=== PATIENT | female | born 1965 | race Caucasian/White ===

== ENCOUNTER 2017-11-18 13:04 | Outpatient (REF) | payer MEDICAID, SELFPAY ==
[2017-11-18 19:01] LABS: ALT 107 U/L (12-78); AST 97 U/L (15-37); Albumin 4.1 g/dL (3.4-5.0); Alkaline Phosphatase 67 U/L (46-116); Anion Gap 10.3 mmol/L (3-11); BUN 10 mg/dL (7-18); Bilirubin, Total 0.3 mg/dL (0.2-1.0); CO2 27.7 mmol/L (21.0-32.0); CREATININE 0.88 mg/dL (0.55-1.02); Calcium 9.5 mg/dL (8.5-10.1); Chloride 100 mmol/L (98-107); Cholesterol 142 mg/dL (50-200); Glucose 138 mg/dL (70-100); HDL Cholesterol 35 mg/dL (40-60); LDL CHOLESTEROL 87 mg/dL (<100); Potassium 3.9 mmol/L (3.5-5.1); Sodium 138 mmol/L (136-145); TSH 0.99 uIU/mL (0.358-3.74); Total Protein 7.6 g/dL (6.4-8.2); Triglyceride 181 mg/dL (30-150)
== END 2017-11-18 13:24 ==
LOC: NCHCN 13:04
PROVIDERS: PCP Nurse Practitioner Family; Visit Provider Nurse Practitioner Family
DX: E11.9 Type 2 diabetes mellitus without complications (principal); E78.5 Hyperlipidemia, unspecified
CPT/HCPCS: 80053; 80061; 83721; 84443

== ENCOUNTER 2018-03-01 12:04 | Outpatient (REF) | payer MEDICAID, SELFPAY ==
[2018-03-01 19:56] LABS: ALT 105 U/L (12-78); AST 97 U/L (15-37); Albumin 4.1 g/dL (3.4-5.0); Alkaline Phosphatase 58 U/L (46-116); Anion Gap 12.7 mmol/L (3-11); BUN 14 mg/dL (7-18); Bilirubin, Total 0.3 mg/dL (0.2-1.0); CO2 25.3 mmol/L (21.0-32.0); CREATININE 0.81 mg/dL (0.55-1.02); Calcium 10.2 mg/dL (8.5-10.1); Chloride 100 mmol/L (98-107); Cholesterol 223 mg/dL (50-200); Glucose 148 mg/dL (70-100); HDL Cholesterol 33 mg/dL (40-60); LDL CHOLESTEROL 167 mg/dL (<100); Potassium 4.3 mmol/L (3.5-5.1); Sodium 138 mmol/L (136-145); Triglyceride 159 mg/dL (30-150)
== END 2018-03-01 12:24 ==
LOC: NCHCN 12:04
PROVIDERS: PCP Nurse Practitioner Family; Visit Provider Nurse Practitioner Family
DX: E11.9 Type 2 diabetes mellitus without complications (principal); I10 Essential (primary) hypertension; E78.5 Hyperlipidemia, unspecified
CPT/HCPCS: 80053; 80061; 83721

== ENCOUNTER 2018-03-16 12:22 | Outpatient (REF) | payer MEDICAID, SELFPAY ==
[2018-03-16 19:46] LABS: Iron 74 ug/dL (50-175); Total Iron Binding Capacity 494 ug/dL (250-450)
[2018-03-18 10:34] LABS: IgG 657 mg/dL (610-1616)
[2018-03-18 10:53] LABS: Hepatitis C Ab w Rflx HCV PCR Negative (NEGAT)
[2018-03-18 11:00] LABS: HBs Antibody, Quant <3.1 mIU/mL; Hepatitis B Surface Ab Negative
[2018-03-18 13:47] LABS: ANA Interpretation Negative (NEGAT)
[2018-03-19 16:33] LABS: Smooth Muscle Ab Screen Negative (Negative)
== END 2018-03-16 12:42 ==
LOC: NCHCN 12:22
PROVIDERS: PCP Nurse Practitioner Family; Visit Provider Nurse Practitioner Family
DX: K75.81 Nonalcoholic steatohepatitis (NASH) (principal)
CPT/HCPCS: 82784; 86706; 86803; 83540; 83550; 86038; 86255

== ENCOUNTER 2018-04-12 12:17 | Outpatient (REF) | payer MEDICAID, SELFPAY ==
[2018-04-12 19:31] LABS: Iron 97 ug/dL (50-175); Total Iron Binding Capacity 471 ug/dL (250-450)
[2018-04-14 09:50] LABS: HBs Antibody, Quant 32.9 mIU/mL; Hepatitis B Surface Ab Positive
[2018-04-14 10:04] LABS: IgG 908 mg/dL (610-1616)
[2018-04-14 11:15] LABS: Hepatitis C Ab w Rflx HCV PCR Negative (NEGAT)
[2018-04-14 13:55] LABS: ANA Interpretation Negative (NEGAT)
[2018-04-14 16:31] LABS: Smooth Muscle Ab Screen Negative (Negative)
== END 2018-04-12 12:37 ==
LOC: NCHCN 12:17
PROVIDERS: PCP Nurse Practitioner Family; Visit Provider Nurse Practitioner Family
DX: K75.81 Nonalcoholic steatohepatitis (NASH) (principal)
CPT/HCPCS: 82784; 86706; 86803; 83540; 83550; 86038; 86255

== ENCOUNTER 2018-05-30 12:02 | Outpatient (REF) | payer MEDICAID, SELFPAY ==
[2018-05-30 19:41] LABS: Anion Gap 12.9 mmol/L (3-11); BUN 9 mg/dL (7-18); CO2 27.1 mmol/L (21.0-32.0); CREATININE 0.82 mg/dL (0.55-1.02); Calcium 9.9 mg/dL (8.5-10.1); Chloride 99 mmol/L (98-107); Glucose 131 mg/dL (70-100); Potassium 3.9 mmol/L (3.5-5.1); Sodium 139 mmol/L (136-145)
== END 2018-05-30 12:22 ==
LOC: NCHCN 12:02
PROVIDERS: PCP Nurse Practitioner Family; Visit Provider Nurse Practitioner Family
DX: I10 Essential (primary) hypertension (principal)
CPT/HCPCS: 80048

== ENCOUNTER 2018-08-29 11:58 | Outpatient (REF) | payer MEDICAID, SELFPAY ==
[2018-08-29 20:15] LABS: ALT 96 U/L (12-78); AST 75 U/L (15-37); Anion Gap 13.7 mmol/L (3-11); BUN 11 mg/dL (7-18); CO2 25.3 mmol/L (21.0-32.0); CREATININE 0.79 mg/dL (0.55-1.02); Calcium 9.6 mg/dL (8.5-10.1); Calculated LDL 58 mg/dL; Chloride 100 mmol/L (98-107); Cholesterol 121 mg/dL (50-200); Glucose 146 mg/dL (70-100); HDL Cholesterol 48 mg/dL (40-60); Potassium 4.1 mmol/L (3.5-5.1); Sodium 139 mmol/L (136-145); Triglyceride 77 mg/dL (30-150)
[2018-08-29 22:07] LABS: COMMENT (LAB VIEW ONLY) 51.12 mg/dL; Microalb ug/mg Crea 288.7 ug/mg Cr
== END 2018-08-29 12:18 ==
LOC: NCHCN 11:58
PROVIDERS: PCP Nurse Practitioner Family; Visit Provider Nurse Practitioner Family
DX: E11.9 Type 2 diabetes mellitus without complications (principal); E78.5 Hyperlipidemia, unspecified; K76.0 Fatty (change of) liver, not elsewhere classified
CPT/HCPCS: 80048; 80061; 83721; 82043; 82570; 84450; 84460

== ENCOUNTER 2019-06-29 12:05 | Outpatient (REF) | payer MEDICAID, SELFPAY ==
[2019-06-29 19:32] LABS: ALT 58 U/L (14-59); AST 68 U/L (15-37); Albumin 3.8 g/dL (3.4-5.0); Alkaline Phosphatase 57 U/L (46-116); Anion Gap 11.4 mmol/L (3-11); BUN 8 mg/dL (7-18); Bilirubin, Total 0.3 mg/dL (0.2-1.0); CO2 26.6 mmol/L (21.0-32.0); CREATININE 1.06 mg/dL (0.55-1.02); Calcium 9.2 mg/dL (8.5-10.1); Calculated LDL 44 mg/dL (<100); Chloride 101 mmol/L (98-107); Cholesterol 96 mg/dL (<200); Estimated GFR 54.65 (mL/min/1.73m2); Glucose 161 mg/dL (74-106); HDL Cholesterol 31 mg/dL (40-60); Potassium 3.5 mmol/L (3.5-5.1); Sodium 139 mmol/L (136-145); Total Protein 7.3 g/dL (6.4-8.2); Triglyceride 105 mg/dL (<150)
[2019-06-29 19:55] LABS: Hemoglobin A1C 7.5 % (3.8-5.6)
[2019-07-01 13:59] LABS: Campylobacter PCR Negative (Negative); Salmonella PCR Negative (Negative); Shiga Toxin PCR Negative (Negative); Shigella/Enteroinvasive Ecoli Negative (Negative)
== END 2019-06-29 12:25 ==
LOC: NCHCN 12:05
PROVIDERS: PCP Nurse Practitioner Family; Visit Provider Nurse Practitioner Family
DX: R19.7 Diarrhea, unspecified (principal); E11.9 Type 2 diabetes mellitus without complications; I10 Essential (primary) hypertension; E78.5 Hyperlipidemia, unspecified
CPT/HCPCS: 80053; 80061; 87329; 87505; 83036; 87324

== ENCOUNTER 2019-10-02 12:04 | Outpatient (REF) | payer MEDICAID, SELFPAY ==
[2019-10-02 19:04] LABS: Anion Gap 12.1 mmol/L (3-11); BUN 7 mg/dL (7-18); CO2 26.9 mmol/L (21.0-32.0); CREATININE 0.92 mg/dL (0.55-1.02); Calcium 9.5 mg/dL (8.5-10.1); Chloride 101 mmol/L (98-107); Glucose 142 mg/dL (74-106); Potassium 3.7 mmol/L (3.5-5.1); Sodium 140 mmol/L (136-145)
[2019-10-02 19:51] LABS: Hemoglobin A1C 7.2 % (3.8-5.6)
== END 2019-10-02 12:24 ==
LOC: NCHCN 12:04
PROVIDERS: PCP Nurse Practitioner Family; Visit Provider Nurse Practitioner Family
DX: E11.9 Type 2 diabetes mellitus without complications (principal); I10 Essential (primary) hypertension; M47.817 Spondylosis without myelopathy or radiculopathy, lumbosacral region
CPT/HCPCS: 80048; 83036

== ENCOUNTER 2019-12-19 07:42 | Outpatient (CLI) | payer MEDICAID, SELFPAY ==
--- NOTE | 2019-12-19 06:00 | DI.RAD_ITS ---
EXAM: XR PAIN CLINIC LUMBAR SP 2V CLINICAL HISTORY: Dx: Lumbar Radiculopathy,caudal epidural steroid injection TECHNIQUE: 2D and realtime digital imaging was performed. COMPARISON: No exams were available for comparison FINDINGS: C-arm fluoroscopy was utilized by Dr. Alba during reported caudal epidural steroid injection. Hard advertising copy writer ies show epidural injection at what appears to be the 3rd sacral segment level. Fluoro time, 21.3 seconds. IMPRESSION: RADIATION DOSE DELIVERED: Total DLP
[2019-12-19 07:52] VITALS: BP 121/75; PULSE 78; RESP 16; TEMP 36.6; O2SAT 97
--- NOTE | 2019-12-19 08:36 | PDOC.PAIN ---
Pain Clinic Procedure Note Procedure Note Procedure Note: CANDAL EPIDURAL STEROID WITH CATHETER INJECTION PROCEDURE NOTE Pre-operative diagnosis: lumbar post-laminectomy syndrome Post-operative diagnosis: same as above COMMENTS: patient underwent L4-[address] Hall for her radiating leg symptoms which have largely resolved after spine surgery. She has infrequent flare up of low back pain with radiation down bilateral buttocks. She is referred for a trial of caudal CLARIBEL for symptomatic relief. she was seen and evaluated by Ms Jacinto in our pain clinic DUONG PELAYO has been referred to the [facility] for lumbar epidural steroid injection. Patient was greeted by the nurse who verified patients name and . Patient was then taken to the fluoroscopy suite. Patient was interviewed and the medical record reviewed. There were no medical, pharmacologic, radiographic, or other structural contraindications to attempting fluoroscopically guided lumbar epidural steroid injection. Risks and expected side effects as well as potential benefits of the procedure were reviewed and voiced concerns addressed. The patient consent form was signed and witnessed. Standard time-out procedure was performed. Patient was placed in the prone position on the fluoroscopy table and automated blood pressure cuff and pulse oximeter applied. The skin entry point for entering/approaching the epidural space by a pointer and marked. Following thorough chlorhexadine preparation of the skin x2 and draping and 1% lidocaine infiltration of the skin entry point and subcutaneous tissues, a 17 gauge Touhy needle was placed under fluoroscopic guidance and with loss of resistance technique into the epidural space. Needle tip placement and depth were aided and confirmed by fluoroscopy. There was no paresthesia or return of blood or CSF through the needle. An radio-opaque 19G Arrow cath was thread to the L4-5 and 1 cc's of Omnipaque 240 was injected with clear epidural spread confirmed with fluoroscopy. 80mg depomedrol was injected. 2cc of preservative free 1% lidocaine was used to flush out the catheter. There was not any unusual discomfort expressed. Vital signs were stable throughout the procedure and were as recorded in nursing records. Follow up plans and appointments were discussed.Post procedure instruction was given as documented in nursing records and having met discharge criteria and was discharged from the [facility]. COMMENTS: patient tolerated procedure well without issue. I personally performed the entire procedure. Rosana Alba MD Pain Management
[2019-12-19] MEDS: Omnipaque 240 MG/ML 50 ML BTL IJ (08:46)
[2019-12-19] MEDS: methylPREDNISolone ACETATE 80 MG/ML VIAL IJ (08:46)
[2019-12-19 08:47] VITALS: BP 144/92; PULSE 79; RESP 19; O2SAT 99
== END 2019-12-19 08:02 ==
PROVIDERS: PCP Nurse Practitioner Family; Visit Provider Internal Medicine
DX: M96.1 Postlaminectomy syndrome, not elsewhere classified (principal)
CPT/HCPCS: 62323; 72100; J1040; Q9967

== ENCOUNTER 2020-01-24 11:17 | Outpatient (REF) | payer MEDICAID, SELFPAY ==
[2020-01-27 09:16] LABS: COVID-19 RT-PCR UVMMC Result Negative (Negative)
== END 2020-01-24 11:37 ==
LOC: NCHCN 11:17
PROVIDERS: PCP Nurse Practitioner Family; Visit Provider Physician Assistant
DX: Z20.828 Contact with and (suspected) exposure to other viral communicable diseases (principal)
CPT/HCPCS: U0003

== ENCOUNTER 2020-02-26 16:00 | Observation (INO) | payer MEDICAID, SELFPAY ==
[2020-02-26 16:18] VITALS: BP 124/80; PULSE 96; RESP 16; TEMP 36.8; O2SAT 95
--- NOTE | 2020-02-26 16:29 | W.ED.GENAD ---
Discharge Plan Disposition Patient Disposition: [facility] INPATIENT Condition: Stable Discharge Details Chief Complaint: PsychEval Clinical Impression: Suicidal ideation Admit Date/Time: 02/26/20 20:33 Admit Provider: Arvind Swartz Attending Provider: Arvind Swartz Primary Care Provider: Kathy Morrow ED Provider: Barbara Mead Medical Decision Making Patient is a pleasant 54-year-old female presenting today with chief complaint of suicidality. Patient reports that she has a history of mood disorder, PTSD, anxiety and depression. She reports that the day prior to Thanksgiving her aunt . She reports a subsequent quarantine after being with her family or difficult for her. She also reports that she has been having difficulty medically and has been having chronic headaches for the past 4 months, had tried a kinesia associated with trial of medication. She states no acute or change in her medical condition but rather chronicity frustrating for her. She does report that she had to have a breast biopsy last month. All of these things seem to bring up her depression. Patient status post up with medication overdose. She has been hospitalized for this historically in 2018. No previous attempts. On exam, patient tearful and appears very anxious. Her physical exam is otherwise unremarkable. Plan for baseline labs. Offered anxiolytic which the patient accepted. Will give p.o. Ativan. Will have a sitter with the patient. Will consult with psych. Patient is wishing to have voluntary admission at this time as she has continued to work with her psychiatrist and counselor and despite these efforts continues to decline and had increased passive suicidality. Patient has no known trauma. She spoke with mental health. They do feel that inpatient admission is appropriate for her. She will remain voluntary at this time. Patient smokes daily, we will give her a nicotine patch at her request. Labs reviewed. Patient presents with a white count of 15. She had she has been on steroids associated with a rash. She is no longer on the steroids as they are believing that this may be contributing to her worsening depression. 3.4. This is elevated at 45, this is baseline for the patient. She does appear dehydrated on her UA. This was quite contaminated. Negative salicylates, negative acetaminophen, no EtOH. Patient was positive for THC. Covid testing negative. Awaiting to hear back from mental health regarding bed placement. They do believe that most of the beds are filled at this time. Contacted by mental health. They advised that at this time there are no beds available but that [facility] would take his referral in hopes that he can go there tomorrow. Discussed this plan with the patient. She does feel improved after 0.5 mg of Ativan. Consulted with Dr. Swartz who agrees with admission. HPI General Mode of arrival: ambulatory. Date/Time Provider Initiated Documentation: 02/26/20 16:06. Limitations to Documentation: no limitations. Information obtained by: patient and RN notes reviewed. History of Present Illness 54 year old F presents to the emergency department with the chief complaint of suicidal ideations, described as severe and similar to prior episodes (similar in 2018), Patient started experiencing this month(s) (1, progressively worsening) and it has been constant. No relieving factors improve symptom(s), Other factors that worsen symptoms (multiple social stressors, concerned about her own health, of family member) . Patient notes no other symptoms.. Patient did receive the following treatments prior to arrival, other (sees counselor weekly) Related Data Home Medications Medication Instructions Recorded Confirmed acyclovir 400 mg PO BID 05/11/16 02/26/20 cholecalciferol (vitamin D3) 2,000 unit PO DAILY 05/11/16 02/26/20 esomeprazole magnesium [Nexium] 40 mg PO BID tab-cap 05/11/16 02/26/20 lisinopril 20 mg PO DAILY #1 tab-cap 05/11/16 02/26/20 multivitamin [Multi-Day] 1 ea PO DAILY 05/11/16 02/26/20 trazodone 100 mg PO HS 05/11/16 02/26/20 duloxetine [Cymbalta] 90 mg PO .QOD 07/15/16 02/26/20 acetaminophen [Acetaminophen Extra 1,000 mg PO TID PRN PRN #180 tab 07/23/16 02/26/20 Strength] ibuprofen 600 mg PO TID PRN PRN #90 tab 08/31/16 02/26/20 blood sugar diagnostic [OneTouch 10/31/19 02/12/20 Verio test strips] lancets [OneTouch Delica Plus 10/31/19 02/12/20 Lancet] metoprolol succinate [Toprol XL] 50 mg PO DAILY 10/31/19 02/26/20 ondansetron HCl 4 mg PO Q6H PRN 10/31/19 02/26/20 rosuvastatin [Crestor] 5 mg PO DAILY 10/31/19 02/26/20 indapamide 2.5 mg tablet 2.5 mg PO DAILY tab 02/12/20 02/26/20 metformin 500 mg tablet 500 mg PO .2 am 1 hs tab-cap 02/12/20 02/26/20 clonazepam 0.25 mg PO BID 02/26/20 02/26/20 doxycycline hyclate 100 mg PO BID 02/26/20 02/26/20 erenumab-aooe 70 mg/mL 70 mg SUBCUT QMONTH #1 ea 02/26/20 02/26/20 subcutaneous auto-injector Previous Rx's Medication Instructions Recorded acetaminophen [Acetaminophen Extra 1,000 mg PO TID PRN PRN #180 tab 07/23/16 Strength] erenumab-aooe 70 mg/mL 70 mg SUBCUT QMONTH #1 ea 02/26/20 subcutaneous auto-injector Allergies Allergy/AdvReac Type Severity Reaction Status Date / Time baclofen Allergy Intermediate rash Verified 02/26/20 16:23 duloxetine Allergy Intermediate Unverified 02/26/20 16:23 methylprednisolone Allergy Intermediate Unverified 02/26/20 16:23 [From Medrol] lactase [From Dairy Aid] Allergy Mild Verified 02/26/20 16:23 lurasidone [From Latuda] Allergy Unknown Unverified 02/26/20 16:23 tree and shrub pollen Allergy Unknown Unverified 02/26/20 16:23 General Stated Complaint: PsychEval CLARIBEL: 2 Review of Systems Constitutional Constitutional: Reports as per HPI, Denies chills, Denies fatigue, Denies fever(s), Reports headache(s) and Denies weakness Eyes Eyes: Denies change in vision ENT Ears, Nose, Mouth, and Throat: Reports headache(s) Cardiovascular Cardiovascular: Reports as per HPI, Denies chest pain, Denies lightheadedness, Denies dyspnea and Denies dyspnea on exertion Respiratory Respiratory: Reports as per HPI, Denies cough, Denies dyspnea and Denies dyspnea on exertion Gastrointestinal Gastrointestinal: Reports as per HPI, Denies abdominal pain, Denies change in bowel habits, Denies nausea and Denies vomiting Musculoskeletal Musculoskeletal: Denies abnormal gait Integumentary/Breasts Skin/Breast: Reports as per HPI and Denies rash Neurologic Neurologic: Denies abnormal movements, Denies abnormal speech, Denies abnormal gait, Reports headache(s), Denies paresthesias and Denies weakness Endocrine Endocrine: Denies fatigue [facility] Medical History Anxiety disorder Asthma, mild intermittent BMI 40.0-44.9, adult Calcific tendinitis of shoulder Chronic headache Cocaine abuse, in remission Depression Diabetes Diabetic neuropathy Elevated liver enzymes HSV infection HTN (hypertension) Hyperlipidemia Lumbago with sciatica Nonalcoholic steatohepatitis REX (obstructive sleep apnea) Palpitations PTSD (post-traumatic stress disorder) Sacroiliac joint dysfunction of left side Seasonal mood disorder Sensorineural hearing loss (SNHL) Subacromial impingement Tobacco abuse Vocal cord polyp Surgical History Appendectomy bunion correction via Cheilectomy Cholecystectomy History of surgical procedure foraminotomy Hysterectomy, Laproscopic Lithotripsy x3 Nerve Decompression Lumbar spine S/P shoulder surgery Family History Father Hypertension Brother Hypertension Other Diabetes Social History Smoking/Tobacco Use Status: Current every day Tobacco Type: e-cigarettes Smoking risk assessment performed?: Yes Alcohol Intake: former Year quit: 2011 Drug use: Current Sobriety Substance use type: former substance user, marijuana and crack/cocaine Household members: family Housing: house Number of Children: 0 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; former dental hygienist Pets and animals: No What is your relationship status?: never Panel score (0-1 are the most socially isolated patients): 0 What type of physical activity do you participate in: none and independent ambulation Seatbelt use: always Do you feel safe in your relationship?: Yes Exam Const General: cooperative, healthy appearing, comfortable, no acute distress, well developed and well groomed Nutritional Appearance: well nourished and obese Orientation: alert and awake Eyes General: appearance normal, both eyes and all related structures Resp Effort & Inspection: normal respiratory effort, able to speak in complete sentences and no respiratory distress Auscultation: clear to auscultation bilaterally, no rales, no rhonchi and no wheezes Cardio Rate: regular rate Rhythm: regular rhythm Heart Sounds: S1 normal and S2 normal Skin General skin exam: no rashes or lesions noted Trauma: no lacerations or abrasions Neuro General: patient alert and patient awake Cognition: normal cognition Speech: speech normal Gait: normal gait Course Vital Signs Vital signs: Vital Signs Temperature 36.8 C 02/26/20 16:18 Pulse 96 H 02/26/20 16:18 Respiratory Rate 16 02/26/20 16:18 Blood Pressure 124/80 02/26/20 16:18 Pulse Oximetry 95 02/26/20 16:18 Temperature 36.8 C 02/26/20 16:18 Temperature Source Oral 02/26/20 16:18 Pulse 96 H 02/26/20 16:18 Respiratory Rate 16 02/26/20 16:18 Respiratory Effort Non-Labored 02/26/20 16:18 Blood Pressure 124/80 02/26/20 16:18 Blood Pressure Position Sitting 02/26/20 16:18 Pulse Oximetry 95 02/26/20 16:18 Oxygen Delivery Method Room Air 02/26/20 16:18 Oxygen Flow Rate 0 02/26/20 16:18 Pain Level 6 02/26/20 16:18 Comment 02/26/20 16:18
[2020-02-26 16:51] LABS: Bilirubin Negative (Negative); Blood Negative (Negative); Clarity Clear (Clear); Glucose Negative (Negative); Ketones Negative (Negative); Leukocyte Esterase Negative (Negative); Nitrite Negative (Negative); Specific Gravity >= 1.030 (1.005-1.025); Urobilinogen 0.2 EU/dL (Up TO 0.2)
[2020-02-26 17:01] LABS: Bacteria Few HPF (Negative); Crystals Negative HPF (Negative); Epithelial Cells Many HPF (Negative); Other Cells Few Transitional (Negative); RBC 0-2 HPF (0-2); WBC Negative HPF (0-5)
[2020-02-26 17:02] LABS: *AMPHETAMINES SCREEN URINE Negative (Negative); *BARBITURATES SCREEN URINE Negative (Negative); *BENZODIAZEPINES SCREEN URINE Negative (Negative); C & S Indicated? No/Sq. Contamination; Cannabinoids THC POSITIVE (Negative); Cocaine Screen,Urine Negative (Negative); METHADONE URINE SCREEN Negative (Negative); OPIATES URINE SCREEN Negative (Negative)
[2020-02-26] MEDS: LORazepam 0.5 MG TAB PO (17:07)
[2020-02-26 17:09] LABS: Tricyclic Antidepressants Negative (Negative)
[2020-02-26 17:35] LABS: Source Nasopharynx
[2020-02-26 17:37] LABS: Abs Immature Grans 0.05 10^3/uL (0.0-0.06); Absolute Eosinophil Count 0.44 10^3/uL (0.0-0.7); Absolute Lymphocyte Count 3.47 10^3/uL (1.2-3.4); Absolute Neutrophil Count 10.47 10^3/uL (1.2-6.7); Basophils % 0.6; Eosinophils % 2.8; HCT 40.2 % (36.0-46.0); HGB 13.4 g/dL (11.2-15.7); Immature Grans % 0.3; Lymphocytes % 22.2; MCH 29.5 pg (27.0-33.0); MCHC 33.3 % (32.0-36.0); MCV 88.5 fL (80-95); MPV 11.9 fL (8.0-11.0); Monocytes % 7.2; Neutrophils % 66.9; Nucleated RBC 0 %; Platelet Count 312 10^3/uL (130-400); RBC 4.54 10^6/uL (3.93-5.22); RDW 13.7 % (11.7-14.6); RDW-SD 44.1 fL; WBC 15.65 10^3/uL (4.4-10.8)
[2020-02-26 17:38] LABS: Absolute Basophil Count 0.09 10^3/uL (0.0-0.2); Absolute Monocyte Count 1.13 10^3/uL (0.1-0.8)
--- NOTE | 2020-02-26 17:48 | CMSP_ITS ---
- If Service Date Differs Date of service: 02/26/20 Time of Service: 21:50 Care Management Safety Plan Chief Complaint: 54 year old female presents voluntarily seeking inpatient treatment for persistent SI. Per provider: Patient is wishing to have voluntary admission at this time as she has continued to work with her psychiatrist and counselor and despite these efforts continues to decline and had increased passive suicidality. BPS: B: Asthma, diabetes with neuropathy, REX (CPAP), SNHL, chronic migraines (completed Neuro consult with Ashtyn Carter), chronic pain (caudal CLARIBEL 3x/yr last injection: 12/19/19). Hx of cocaine use disorder-in remission, tobacco use disorder (vape), Marijuana use. 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 Medicaid. Father and friend listed in chart, recent HIPPA lists only her father, Jules with same address as her own. VOLUNTARY FOR INPATIENT PSYCHIATRIC STABILIZATION. Lory has been appropriate in all interactions thus far, since arriving at [facility]. She is tearful, and forthcoming with her concerns and struggles. She has shown thus far to be coping effectively, emotionally regulating herself and utilizing appropriate communication skills. She has been fully engaged during staff interactions. Safety plan has been established with patient, and care team, to adhere to patient goals, identify restrictions based on behavioral status, address nutrition, and determine allowed personal belongings, tools for hygiene and personal care. Determine level of activity including ambulation, level of supervision, visitors, and determine privileges based on behaviors and level of engagement by pt. SAFETY PLAN: 1. Will remain on suicide precautions and in paper clothes 2. Will remain in room under direct supervision of one-on-one staff at all times provided by [employer]; GWENDOLYN, PENSION FUND MANAGER forming process line worker. 3. May have paper cups, plates, finger foods as well as a cardboard spoon with which to eat meals. 4. Follow [facility] Management of the Admitted Behavioral Health Patient policy. 5. Permitted use of shower room per RN discretion (M/S). 6. Personal belongings limited to patient's own CPAP machine at this time. 7. Visitors-No visitors at this time per COVID policy. 8. Activities: television, remote and CART items permitted per RN discretion. 9. Bathroom available in room without limitation on M/S. 10. Phone: limited to legal contact at this time. 11. Due to VOLUNTARY status, if patient wishes to leave [facility], the [facility] fat pressroom worker must be contacted to re-evaluate patient prior to patient exiting the building. Patient is currently voluntarily at [facility] and seeking inpatient admission when a bed becomes available. [facility] Frontline Railway Signal Technician will continue seeking placement. Please contact the [employer] Flat Sorter Processor ([phone]) and [facility] Railway Signal Technician ([phone]) for any needed changes in the Safety Plan. Safety plan has been provided to interdepartmental care team.
[2020-02-26 17:57] LABS: ALT 59 U/L (14-59); AST 45 U/L (15-37); Albumin 3.9 g/dL (3.4-5.0); Alkaline Phosphatase 49 U/L (46-116); Anion Gap 9.8 mmol/L (3-11); BUN 13 mg/dL (7-18); Bilirubin, Total 0.3 mg/dL (0.2-1.0); CO2 26.2 mmol/L (21.0-32.0); CREATININE 0.91 mg/dL (0.55-1.02); Calcium 9.4 mg/dL (8.5-10.1); Chloride 101 mmol/L (98-107); Glucose 180 mg/dL (74-106); Potassium 3.4 mmol/L (3.5-5.1); Sodium 137 mmol/L (136-145); TSH 1.03 uIU/mL (0.36-3.74); Total Protein 7.5 g/dL (6.4-8.2)
[2020-02-26 18:06] LABS: Salicylate < 2.8 mg/dL (2.8-20.0)
[2020-02-26 18:07] LABS: Acetaminophen < 2 ug/mL (10-30)
[2020-02-26 18:10] LABS: ETHANOL BLOOD < 3.0 mg/dL (<3)
[2020-02-26 18:19] LABS: COVID-19 PCR Negative (Negative); Influenza A PCR Negative (Negative); Influenza B PCR Negative (Negative); RSV PCR Negative (Negative)
--- NOTE | 2020-02-26 18:50 | MHPN_ITS ---
Date of service: 02/26/20 Time of Service: 18:50 Mental Health Progress Note Progress Note Progress Note: Presenting Issue: Client presented to the ED after speaking with her therapist and reporting suicidal ideation. Precipitating Factors Client reports myriad physical health issues, exacerbation of her depression due to a recent in the family, unemployment, and her medical issues, and reports a plan without intent to end her life by overdosing on medication. Client reports feeling like a burden to her father because she has no income. Client has a history of mental health issues, with multiple diagnoses including depression, PTSD, and mood disorder. Disposition * Behavior: Client is seated on her hospital bed in paper scrubs. Client is cooperative and pleasant, and shows good insight into her mental health. *Eye Contact: Good, consistent eye contact *Mood: Depressed *Affect: Flat *Appetite: Did not assess *Sleep(troubel falling/staying asleep): Did not assess Plan(please elaborate and include that physician is consulted with plan and/or placement): Client will remain at [facility] to await placement at inpatient facility. Referral sent to [facility]. Clinician's Name , Title, and Signature Xochitl Rae Emergency Services Clinician [facility] Make sure that you are photocopying and submitting this to [facility] records Dept. to be scanned into chart.
[2020-02-26] MEDS: Nicotine 21 MG/24 HR PATCH TD (19:16)
--- NOTE | 2020-02-26 20:19 | W.PM.HP.N ---
Date of service: 02/26/20 Time of Service: 20:19 Assessment and Plan Assessment and plan (1) Suicidal ideation: Status: Acute Assessment and plan: SI (note possibility that recent prednisone may have aggravated situation). Will admit pending transfer to facility. No change in psych meds for now, except will add a prn Ativan. HAs: will hold NSAIDs, trial APAP, with prn Fiorinal. As above declines Prednisone. DM: usual meds History of Present Illness History of Present Illness Chief Complaint: SI Narrative: 54 female with h/o depression, PTSD -- multiple psychosocial stressors over recent months, with gradual worsening of depression, to the point where she comes in today with rene SI, thinking about taking a drug overdose; has not in fact done so. Seen by mental health, agrees to voluntary admission. Provisionally accepted at [facility] (I am told) pending bed availability. States she feels safe here. Had Ativan 0.5 in ER with good effect. Incidental note of leukocytosis (15). Was on Prednisone until 3 days ago for dermatitis, otherwise denies any sxx suggestive of infection. Also reports chronic daily JOSHI, takes Motrin 600 tid. Advised she may have analgesic overuse JOSHI and first step would be to stop the Motrin. Notes that her HAs were better while on prednisone, but advises she did not like how it made her feel (mental health-[facility]) and does not want to take any more. Review of Systems All systems reviewed & are unremarkable except as noted in HPI and below PFSH Medical History Anxiety disorder Asthma, mild intermittent BMI 40.0-44.9, adult Calcific tendinitis of shoulder Chronic headache Cocaine abuse, in remission Depression Diabetes Diabetic neuropathy Elevated liver enzymes HSV infection HTN (hypertension) Hyperlipidemia Lumbago with sciatica Nonalcoholic steatohepatitis REX (obstructive sleep apnea) Palpitations PTSD (post-traumatic stress disorder) Sacroiliac joint dysfunction of left side Seasonal mood disorder Sensorineural hearing loss (SNHL) Subacromial impingement Tobacco abuse Vocal cord polyp Surgical History Appendectomy bunion correction via Cheilectomy Cholecystectomy History of surgical procedure foraminotomy Hysterectomy, Laproscopic Lithotripsy x3 Nerve Decompression Lumbar spine S/P shoulder surgery Family History Father Hypertension Brother Hypertension Other Diabetes Social History Smoking/Tobacco Use Status: Current every day Tobacco Type: e-cigarettes Smoking risk assessment performed?: Yes Alcohol Intake: former Year quit: 2011 Drug use: Current Sobriety Substance use type: former substance user, marijuana and crack/cocaine Household members: family Housing: house Number of Children: 0 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[employer]; former dental hygienist Pets and animals: No What is your relationship status?: never Panel score (0-1 are the most socially isolated patients): 0 What type of physical activity do you participate in: none and independent ambulation Seatbelt use: always Do you feel safe in your relationship?: Yes Meds Home Medications and Allergies Home Medications Medication Instructions Recorded Confirmed Type acyclovir 400 mg PO BID 05/11/16 02/26/20 History cholecalciferol (vitamin D3) 2,000 unit PO DAILY 05/11/16 02/26/20 History esomeprazole magnesium [Nexium] 40 mg PO BID tab-cap 05/11/16 02/26/20 History lisinopril 20 mg PO DAILY #1 tab-cap 05/11/16 02/26/20 History multivitamin [Multi-Day] 1 ea PO DAILY 05/11/16 02/26/20 History trazodone 100 mg PO HS 05/11/16 02/26/20 History duloxetine [Cymbalta] 90 mg PO .QOD 07/15/16 02/26/20 History acetaminophen [Acetaminophen Extra 1,000 mg PO TID PRN PRN #180 tab 07/23/16 02/26/20 Rx Strength] ibuprofen 600 mg PO TID PRN PRN #90 tab 08/31/16 02/26/20 History blood sugar diagnostic [OneTouch 10/31/19 02/12/20 History Verio test strips] lancets [OneTouch Delica Plus 10/31/19 02/12/20 History Lancet] metoprolol succinate [Toprol XL] 50 mg PO DAILY 10/31/19 02/26/20 History ondansetron HCl 4 mg PO Q6H PRN 10/31/19 02/26/20 History rosuvastatin [Crestor] 5 mg PO DAILY 10/31/19 02/26/20 History indapamide 2.5 mg tablet 2.5 mg PO DAILY tab 02/12/20 02/26/20 History metformin 500 mg tablet 500 mg PO .2 am 1 hs tab-cap 02/12/20 02/26/20 History clonazepam 0.25 mg PO BID 02/26/20 02/26/20 History doxycycline hyclate 100 mg PO BID 02/26/20 02/26/20 History erenumab-aooe 70 mg/mL 70 mg SUBCUT QMONTH #1 ea 02/26/20 02/26/20 Rx subcutaneous auto-injector Allergies Allergy/AdvReac Type Severity Reaction Status Date / Time baclofen Allergy Intermediate rash Verified 02/26/20 16:23 duloxetine Allergy Intermediate Unverified 02/26/20 16:23 methylprednisolone Allergy Intermediate Unverified 02/26/20 16:23 [From Medrol] lactase [From Dairy Aid] Allergy Mild Verified 02/26/20 16:23 lurasidone [From Latuda] Allergy Unknown Unverified 02/26/20 16:23 tree and shrub pollen Allergy Unknown Unverified 02/26/20 16:23 Exam Narrative Exam Narrative: 124/80, 96, 36.8, 16, 98% RA. HEENT atrumatic; neck supple; lungs clear; heart RRR; abdomen soft and NT; extremities w/o edema; neuro Ox3, non focal Results Labs Result diagrams: 02/26/20 17:28 02/26/20 17:28 Labs: Laboratory Results - last 24 hr 02/26/20 02/26/20 02/26/20 16:45 16:45 17:28 WBC RBC Hgb Hct MCV MCH MCHC RDW Plt Count MPV Immature Gran % Neutrophils % Lymphocytes % Monocytes % Eosinophils % Basophils % Nucleated RBC % Absolute Neutrophils Absolute Lymphocytes Absolute Monocytes Absolute Eosinophils Absolute Basophils Sodium 137 Potassium 3.4 L Chloride 101 Carbon Dioxide 26.2 Anion Gap 9.8 BUN 13 Creatinine 0.91 Estimated GFR/1.73 m2 >= 60.00 Glucose 180 H Calcium 9.4 Total Bilirubin 0.3 AST 45 H ALT 59 Alkaline Phosphatase 49 Total Protein 7.5 Albumin 3.9 TSH 1.03 Urine Color Yellow Urine Clarity Clear Urine pH 6.0 Ur Specific [place] >= 1.030 H Urine Protein 100 H Urine Ketones Negative Urine Blood Negative Urine Nitrite Negative Urine Bilirubin Negative Urine Urobilinogen 0.2 Ur Leukocyte Esterase Negative Urine RBC 0-2 Urine WBC Negative Ur Epithelial Cells Many Urine Crystals Negative Urine Bacteria Few Urine Casts Urine Mucus Not Applicable Urine Other Few transitional Ur Culture Indicated? No/sq. contamination Urine Glucose Negative Salicylates Urine Opiates Screen Negative Urine Methadone Screen Negative Acetaminophen Ur Barbiturates Screen Negative Ur Tricyclics Screen Negative Ur Amphetamines Screen Negative U Benzodiazepines Scrn Negative Urine Cocaine Screen Negative Ur THC Screen Positive A Ethyl Alcohol < 3.0 COVID-19 Source SARS-CoV-2 (PCR) Influenza Type A (PCR) Influenza Type B (PCR) RSV (PCR) 02/26/20 02/26/20 02/26/20 17:28 17:28 17:35 WBC 15.65 H RBC 4.54 Hgb 13.4 Hct 40.2 MCV 88.5 MCH 29.5 MCHC 33.3 RDW 13.7 Plt Count 312 MPV 11.9 H Immature Gran % 0.3 Neutrophils % 66.9 Lymphocytes % 22.2 Monocytes % 7.2 Eosinophils % 2.8 Basophils % 0.6 Nucleated RBC % 0 Absolute Neutrophils 10.47 H Absolute Lymphocytes 3.47 H Absolute Monocytes 1.13 H Absolute Eosinophils 0.44 Absolute Basophils 0.09 Sodium Potassium Chloride Carbon Dioxide Anion Gap BUN Creatinine Estimated GFR/1.73 m2 Glucose Calcium Total Bilirubin AST ALT Alkaline Phosphatase Total Protein Albumin TSH Urine Color Urine Clarity Urine pH Ur Specific [place] Urine Protein Urine Ketones Urine Blood Urine Nitrite Urine Bilirubin Urine Urobilinogen Ur Leukocyte Esterase Urine RBC Urine WBC Ur Epithelial Cells Urine Crystals Urine Bacteria Urine Casts Urine Mucus Urine Other Ur Culture Indicated? Urine Glucose Salicylates < 2.8 Urine Opiates Screen Urine Methadone Screen Acetaminophen < 2 Ur Barbiturates Screen Ur Tricyclics Screen Ur Amphetamines Screen U Benzodiazepines Scrn Urine Cocaine Screen Ur THC Screen Ethyl Alcohol COVID-19 Source Nasopharynx SARS-CoV-2 (PCR) Negative Influenza Type A (PCR) Negative Influenza Type B (PCR) Negative RSV (PCR) Negative Last Vital Signs Temp 36.8 C 02/26/20 16:18 Pulse 96 H 02/26/20 16:18 Resp 16 02/26/20 16:18 BP 124/80 02/26/20 16:18 Pulse Ox 95 02/26/20 16:18 COVID-19 Screening Have you, or household traveled for leisure in last 14 days?: No Had IN PERSON contact w/suspected or confirmed C-19 person: No
[2020-02-26] MEDS: Acetaminophen 500 MG TAB 1000 MG PO (20:55)
[2020-02-26 21:14] VITALS: BP 132/74; PULSE 78; RESP 17; TEMP 36.1; O2SAT 97
[2020-02-26] MEDS: traZODone 50 MG TAB 100 MG PO (21:48)
[2020-02-26] MEDS: Esomeprazole 40 MG CAPCR PO (22:21)
[2020-02-26] MEDS: Doxycycline Hyclate 100 MG CAP PO (22:21)
[2020-02-26] MEDS: Rosuvastatin 10 MG TAB 40 MG PO (22:22)
[2020-02-26] MEDS: clonazePAM 0.5 MG TAB 0.25 MG PO (22:22)
[2020-02-27 06:52] LABS: HCT 37.3 % (36.0-46.0); HGB 12.7 g/dL (11.2-15.7); MCV 88.2 fL (80-95); MPV 12.1 fL (8.0-11.0); Platelet Count 252 10^3/uL (130-400); RBC 4.23 10^6/uL (3.93-5.22); RDW-SD 44.9 fL; WBC 11.39 10^3/uL (4.4-10.8)
[2020-02-27 08:37] LABS: Anion Gap 11.5 mmol/L (3-11); BUN 12 mg/dL (7-18); CO2 24.5 mmol/L (21.0-32.0); CREATININE 0.66 mg/dL (0.55-1.02); Calcium 9.3 mg/dL (8.5-10.1); Chloride 102 mmol/L (98-107); Glucose 173 mg/dL (74-106); Sodium 138 mmol/L (136-145)
[2020-02-27 08:39] LABS: Magnesium 1.5 mg/dL (1.8-2.4)
[2020-02-27 08:41] VITALS: BP 138/80; PULSE 95; RESP 18; TEMP 36.1; O2SAT 97
[2020-02-27] MEDS: Metoprolol CR 50 MG TABCR PO ×2 (08:47→08:51)
[2020-02-27] MEDS: clonazePAM 0.5 MG TAB 0.25 MG PO ×2 (08:47→08:52)
[2020-02-27] MEDS: Lisinopril 20 MG TAB PO ×2 (08:47→08:52)
[2020-02-27 08:50] VITALS: O2SAT 97
[2020-02-27] MEDS: metFORMIN 500 MG TAB 1000 MG PO (08:53)
[2020-02-27] MEDS: Doxycycline Hyclate 100 MG CAP PO (08:53)
[2020-02-27] MEDS: Esomeprazole 40 MG CAPCR PO (08:54)
[2020-02-27] MEDS: Magnesium Chloride 64 MG TABCR 128 MG PO (10:22)
[2020-02-27] MEDS: LORazepam 0.5 MG TAB PO (10:23)
--- NOTE | 2020-02-27 10:36 | W.PM.DS.N ---
Date of service: 02/27/20 Time of Service: 10:37 DS: Diagnosis Discharge Diagnosis (1) Suicidal ideation: Status: Acute Discharge Plan Disposition Patient Disposition: [facility] Condition: Stable Discharge Details Reason For Visit: SI Admit Date/Time: 02/26/20 20:33 Admit Provider: Arvind Swartz Attending Provider: Arvind Swartz Primary Care Provider: Kathy Morrow Hospital Course Hospital Course: This is a 54 year old female with history of depression, obesity, diabetes, chronic migraines and recent rash who was recently treated for abdominal wall cellulitis with steroids and antibiotics who started having suicidal ideation with plan to overdose on medication. work up shows leukocytosis which is likely d/t recent steroid use as she has no evidence of untreated infection. She is completing a course of doxycycline to treat her cellulitis which has markedly improved. she has developed some oral thrush and will be given a prescription for nystatin. she also reports chronic loose stools which are slightly worse since antibiotics but not excessively and now has a magnesium level of 1.5. she was given supplementation and will be given a 2 week oral course and should have repeat lab in 2 weeks. mental health has been following and she has been accepted to [facility], she is being [facility] by [facility]. Home Meds and New Rx's Prescriptions: New nystatin 100,000 unit/mL suspension 500,000 unit buccal QID Qty: 473 RF: 0 magnesium 200 mg tablet 200 mg PO DAILY Qty: 14 RF: 0 Continued metoprolol succinate [Toprol XL] 50 mg Tablet Extended Release 24 Hr 50 mg PO DAILY RF: 0 ondansetron HCl 4 mg Tablet 4 mg PO Q6H PRNRF: 0 (DME) OneTouch Verio test strips Strip MISCELLANEOUS RF: 0 rosuvastatin [Crestor] 5 mg Tablet 5 mg PO DAILY RF: 0 (DME) lancets [OneTouch Delica Plus Lancet] 30 gauge Misc MISCELLANEOUS RF: 0 esomeprazole magnesium [Nexium] 40 MG capsule,delayed release(DR/EC) 40 mg PO BID RF: 0 multivitamin [Multi-Day] 1 EACH tablet 1 ea PO DAILY RF: 0 trazodone 50 MG tablet 100 mg PO HS RF: 0 lisinopril 20 MG tablet 20 mg PO DAILY Qty: 1 RF: 0 acyclovir 800 MG tablet 400 mg PO BID RF: 0 cholecalciferol (vitamin D3) 5,000 UNIT capsule 2,000 unit PO DAILY RF: 0 ibuprofen 600 MG tablet 600 mg PO TID PRN PRNQty: 90 RF: 0 metformin 500 mg tablet 500 mg PO .2 am 1 hs RF: 0 Aimovig Autoinjector 70 mg/mL auto-injector 70 mg subcut QMONTH Qty: 1 RF: 11 doxycycline hyclate 100 mg Capsule 100 mg PO BID RF: 0 clonazepam 0.25 mg tablet,disintegrating 0.25 mg PO BID RF: 0 duloxetine [Cymbalta] 30 MG capsule,delayed release(DR/EC) 90 mg PO .QOD RF: 0 acetaminophen [Acetaminophen Extra Strength] 500 MG tablet 1,000 mg PO TID PRN PRNQty: 180 RF: 0 indapamide 2.5 mg tablet 2.5 mg PO DAILY RF: 0 Discharge Instructions Instructions: Dermatitis (ED), Suicide Prevention (DC) Additional Instructions: continue antibiotics as previously prescribed finishing the course completely. use nystatin 4 times daily for oral thrush. magnesium supplement has been added to your medication. you should have your magnesium level checked in about 1 week. Stand Alone Forms: Nursing Discharge Form Referrals: Kathy Morrow [Primary Care Provider] - (on discharge from [place]) Activity:: Activity as Tolerated Equipment/Supplies:: No Equipment Needed Diet:: As Tolerated Discharge Orders Discharge Orders: Discharge Order (Routine); Ordered 02/27/20 Ordered By: Jasmine Rose Other Ambulatory Orders: Basic Metabolic Panel (Routine) Timeframe: 2 Weeks Location: None Selected Ordered By: Jasmine Rose Magnesium (Routine) Timeframe: 2 Weeks Location: None Selected Ordered By: Jasmine Rose DS: Summary Status at Discharge Functional status at discharge: independent ambulation Overall status at discharge: patient is not back to baseline Mental Status: mental status grossly normal Speech and Movement: speech and movement normal Mood: congruent mood Affect: normal affect Exam Const General: cooperative, disheveled (older appearing than stated age) and ill appearing chronically Nutritional Appearance: obese Orientation: alert, awake and oriented x3 HENMT Head: normal to inspection, normocephalic and atraumatic Mouth: oral mucosae normal and tongue abnormal with white coating (reddened) Chest Chest: normal inspection of the chest Resp Effort & Inspection: normal respiratory effort and able to speak in complete sentences Cardio Rate: regular rate Rhythm: regular rhythm GI Inspection: abnormal to inspection (scattered small red cirucular macular rash, reports marked improvement), large pannus and obesity Skin Lesions: no lesions Rashes: rashes noted (abdomen. no erythema, small red macular lesions over abdomen, no infection) Neuro General: patient alert, patient awake, patient oriented x3, moves all extremities and no focal motor deficits Cranial Nerves: CN's II-XI intact bilaterally Psych Appearance: disheveled Mental Status: mental status grossly normal Speech and Movement: speech and movement normal Mood: congruent mood Affect: normal affect Attitude: cooperative Thought Content: suicidality Insight: fair Judgment: fair DS: Data Vitals/I&O Vitals and I&O: Vital Signs Temperature 36.1 C L 02/27/20 08:41 Temperature Source Tympanic 02/27/20 08:41 Pulse 95 H 02/27/20 08:41 Pulse Rhythm Regular 02/27/20 02:31 Respiratory Rate 18 02/27/20 08:41 Respiratory Effort Non-Labored 02/27/20 02:31 Respiratory Depth Normal 02/27/20 02:31 Respiratory Pattern Normal 02/27/20 02:31 Blood Pressure 138/80 02/27/20 08:41 Blood Pressure Position Sitting 02/26/20 16:18 Pulse Oximetry 97 02/27/20 08:41 Oxygen Delivery Method Room Air 02/27/20 08:41 Oxygen Flow Rate 0 02/27/20 08:41 Pain Level 6 02/26/20 16:18 Comment 02/26/20 16:18 Intake & Output 02/26/20 02/26/20 02/27/20 11:59 23:59 11:59 Intake Total 180 / 180 Balance 180 / 180 Weight 104.326 kg Intake: Oral 180 / 180 Other: Urine Color Yellow Urine Appearance Clear Clear Urine Odor Normal Voiding Methods Toilet Data Completed and Pending Labs on day of discharge: Labs from last 24 hours 02/27/20 02/27/20 02/27/20 06:16 06:16 06:16 WBC 11.39 H RBC 4.23 Hgb 12.7 Hct 37.3 MCV 88.2 MCH 30.0 MCHC 34.0 RDW 14.0 Plt Count 252 MPV 12.1 H Immature Gran % Neutrophils % Lymphocytes % Monocytes % Eosinophils % Basophils % Nucleated RBC % Absolute Neutrophils Absolute Lymphocytes Absolute Monocytes Absolute Eosinophils Absolute Basophils Sodium 138 Potassium 4.0 Chloride 102 Carbon Dioxide 24.5 Anion Gap 11.5 H BUN 12 Creatinine 0.66 Estimated GFR/1.73 m2 >= 60.00 Glucose 173 H Calcium 9.3 Magnesium 1.5 L Total Bilirubin AST ALT Alkaline Phosphatase Total Protein Albumin TSH Urine Color Urine Clarity Urine pH Ur Specific [place] Urine Protein Urine Ketones Urine Blood Urine Nitrite Urine Bilirubin Urine Urobilinogen Ur Leukocyte Esterase Urine RBC Urine WBC Ur Epithelial Cells Urine Crystals Urine Bacteria Urine Casts Urine Mucus Urine Other Ur Culture Indicated? Urine Glucose Salicylates Urine Opiates Screen Urine Methadone Screen Acetaminophen Ur Barbiturates Screen Ur Tricyclics Screen Ur Amphetamines Screen U Benzodiazepines Scrn Urine Cocaine Screen Ur THC Screen Ethyl Alcohol COVID-19 Source SARS-CoV-2 (PCR) Influenza Type A (PCR) Influenza Type B (PCR) RSV (PCR) 02/26/20 02/26/20 02/26/20 17:35 17:28 17:28 WBC 15.65 H RBC 4.54 Hgb 13.4 Hct 40.2 MCV 88.5 MCH 29.5 MCHC 33.3 RDW 13.7 Plt Count 312 MPV 11.9 H Immature Gran % 0.3 Neutrophils % 66.9 Lymphocytes % 22.2 Monocytes % 7.2 Eosinophils % 2.8 Basophils % 0.6 Nucleated RBC % 0 Absolute Neutrophils 10.47 H Absolute Lymphocytes 3.47 H Absolute Monocytes 1.13 H Absolute Eosinophils 0.44 Absolute Basophils 0.09 Sodium Potassium Chloride Carbon Dioxide Anion Gap BUN Creatinine Estimated GFR/1.73 m2 Glucose Calcium Magnesium Total Bilirubin AST ALT Alkaline Phosphatase Total Protein Albumin TSH Urine Color Urine Clarity Urine pH Ur Specific [place] Urine Protein Urine Ketones Urine Blood Urine Nitrite Urine Bilirubin Urine Urobilinogen Ur Leukocyte Esterase Urine RBC Urine WBC Ur Epithelial Cells Urine Crystals Urine Bacteria Urine Casts Urine Mucus Urine Other Ur Culture Indicated? Urine Glucose Salicylates < 2.8 Urine Opiates Screen Urine Methadone Screen Acetaminophen < 2 Ur Barbiturates Screen Ur Tricyclics Screen Ur Amphetamines Screen U Benzodiazepines Scrn Urine Cocaine Screen Ur THC Screen Ethyl Alcohol COVID-19 Source Nasopharynx SARS-CoV-2 (PCR) Negative Influenza Type A (PCR) Negative Influenza Type B (PCR) Negative RSV (PCR) Negative 02/26/20 02/26/20 02/26/20 17:28 16:45 16:45 WBC RBC Hgb Hct MCV MCH MCHC RDW Plt Count MPV Immature Gran % Neutrophils % Lymphocytes % Monocytes % Eosinophils % Basophils % Nucleated RBC % Absolute Neutrophils Absolute Lymphocytes Absolute Monocytes Absolute Eosinophils Absolute Basophils Sodium 137 Potassium 3.4 L Chloride 101 Carbon Dioxide 26.2 Anion Gap 9.8 BUN 13 Creatinine 0.91 Estimated GFR/1.73 m2 >= 60.00 Glucose 180 H Calcium 9.4 Magnesium Total Bilirubin 0.3 AST 45 H ALT 59 Alkaline Phosphatase 49 Total Protein 7.5 Albumin 3.9 TSH 1.03 Urine Color Yellow Urine Clarity Clear Urine pH 6.0 Ur Specific [place] >= 1.030 H Urine Protein 100 H Urine Ketones Negative Urine Blood Negative Urine Nitrite Negative Urine Bilirubin Negative Urine Urobilinogen 0.2 Ur Leukocyte Esterase Negative Urine RBC 0-2 Urine WBC Negative Ur Epithelial Cells Many Urine Crystals Negative Urine Bacteria Few Urine Casts Urine Mucus Not Applicable Urine Other Few transitional Ur Culture Indicated? No/sq. contamination Urine Glucose Negative Salicylates Urine Opiates Screen Negative Urine Methadone Screen Negative Acetaminophen Ur Barbiturates Screen Negative Ur Tricyclics Screen Negative Ur Amphetamines Screen Negative U Benzodiazepines Scrn Negative Urine Cocaine Screen Negative Ur THC Screen Positive A Ethyl Alcohol < 3.0 COVID-19 Source SARS-CoV-2 (PCR) Influenza Type A (PCR) Influenza Type B (PCR) RSV (PCR) [facility] Medical History Anxiety disorder Asthma, mild intermittent BMI 40.0-44.9, adult Calcific tendinitis of shoulder Chronic headache Cocaine abuse, in remission Depression Diabetes Diabetic neuropathy Elevated liver enzymes HSV infection HTN (hypertension) Hyperlipidemia Lumbago with sciatica Nonalcoholic steatohepatitis REX (obstructive sleep apnea) Palpitations PTSD (post-traumatic stress disorder) Sacroiliac joint dysfunction of left side Seasonal mood disorder Sensorineural hearing loss (SNHL) Subacromial impingement Tobacco abuse Vocal cord polyp Surgical History Appendectomy bunion correction via Cheilectomy Cholecystectomy History of surgical procedure foraminotomy Hysterectomy, Laproscopic Lithotripsy x3 Nerve Decompression Lumbar spine S/P shoulder surgery Family History Father Hypertension Brother Hypertension Other Diabetes Social History Smoking/Tobacco Use Status: Current every day Tobacco Type: e-cigarettes Smoking risk assessment performed?: Yes Alcohol Intake: former Year quit: 2011 Drug use: Current Sobriety Substance use type: former substance user, marijuana and crack/cocaine Household members: family Housing: house Number of Children: 0 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; former dental hygienist Pets and animals: No What is your relationship status?: never Panel score (0-1 are the most socially isolated patients): 0 What type of physical activity do you participate in: none and independent ambulation Seatbelt use: always Do you feel safe in your relationship?: Yes
--- NOTE | 2020-02-27 11:33 | PDOC.MHCN_ITS ---
Date of service: 02/27/20 Time of Service: 11:34 Mental Health Crisis Note Presenting Issue How did you arrive at the ED and why did you come: Lory came to [facility] yesterday and was screened by Xochitl Menchaca as a voluntary admission for psychiatry. Precipitating Factors Lory reported that she has been having SI and is needing help. She denied HI. Disposition BEHAVIOR: Lory is cooperative and engaged in the brief interaction today. This clinician did not do a full assessment as she was accepted by already and transportation is being arraigned for her to go. She was tearful to learn she is going today. EYE CONTACT: Eye contact is good. MOOD: Mood appears relieved. AFFECT: Affect is tearful when she learned she was leaving otherwise normal. APPETITE: She reported she had a couple bites this am. SLEEP(trouble falling/staying asleep: She reported she got a little sleep last night. Plan Lory is going to today. Signature Clinician's Name/Title: Lesvia Claudio MS, [facility] Emergency Services Clinician
--- NOTE | 2020-02-27 12:12 | CMDISCH_ITS ---
- If Service Date Differs Date of service: 02/27/20 Time of Service: 12:12 LACE Index Scoring Tool - Questions: Length of Stay (in days): 1 Acuity (Admit via E.D.?): Yes E.D. Visits: 1 - Answers: Total Score: 5 Risk of Readmission: Low Risk Care Management Discharge Reason for Hospitalization: Suicidal ideation. Discharge Plan: Lory is transferring today to the [facility] for psychiatric stabilization. [place] [facility]. Patient/Family Education Needs: Discharge education, expectation, and plan for transfer. Services Needed at Discharge: Psychiatric Facility ([facility]), Transportation ([facility])
== END 2020-02-27 11:32 | disposition short-term general hospital (02) ==
LOC: ER 20:39 → MS 21:07
PROVIDERS: Internal Medicine; Admitting Provider General Practice; Emergency Provider Physician Assistant; PCP Nurse Practitioner Family; Visit Provider General Practice
DX: F32.9 Major depressive disorder, single episode, unspecified (principal); R45.851 Suicidal ideations; F43.10 Post-traumatic stress disorder, unspecified; B37.0 Candidal stomatitis; R51.9 Headache, unspecified; J45.20 Mild intermittent asthma, uncomplicated; E11.40 Type 2 diabetes mellitus with diabetic neuropathy, unspecified; I10 Essential (primary) hypertension; E78.5 Hyperlipidemia, unspecified; G47.33 Obstructive sleep apnea (adult) (pediatric); F17.210 Nicotine dependence, cigarettes, uncomplicated; E66.9 Obesity, unspecified; Z68.41 Body mass index [BMI] 40.0-44.9, adult; D72.829 Elevated white blood cell count, unspecified
CPT/HCPCS: 36415; 80048; 80053; 80307; 81025; 85027; 87637; 99222; 99285; 80320; 80329; 81003; 81015; 83735; 84443; 85025; 99217; 99219; 99284; G0378

== ENCOUNTER 2020-03-14 14:01 | Outpatient (REF) | payer MEDICAID, SELFPAY ==
--- OUTSIDE RECORDS SUMMARY | 2020-03-14 14:05 | XMS_ITS ---
:1965 Author Care Team Providers Name Role Phone EDD FIGUEROA NP Primary Care Provider [phone] QUIQUE PHILLIPS MD General Surgeon [phone] Allergies Code Code System Name Reaction Severity Status Onset RxNorm Medrol ? ? Active ? Medications Name Status Start Date Stop Date ? ? acyclovir 400 mg tablet Active ? Not avai lable 1 tab PO as needed as directed for shingles aripiprazole 10 mg tablet Active ? Not av ailable aripiprazole 15 mg tablet Active ? Not av ailable buspirone 5 mg tablet Active ? Not availa ble Climara 0.025 mg/24 hr transdermal patch Completed 016 03/03/2016 1 (one) Patch Weekly: QW Cymbalta 30 mg capsule,delayed Active ? N ot available release Cymbalta 60 mg capsule,delayed Active ? N ot available release esomeprazole magnesium 40 mg Active ? Not available capsule,delayed release gemfibrozil 600 mg tablet Active ? Not av ailable Take 1 tablet twice a day by oral route. ibuprofen 600 mg tablet Active ? Not avai lable indapamide 2.5 mg tablet Active ? Not cristian ilable Latuda 20 mg tablet Active ? Not availabl e lisinopril 20 mg tablet Active ? Not avai lable lorazepam 1 mg tablet Active ? Not availa ble metformin 500 mg tablet Active ? Not avai lable metoprolol succinate ER 50 mg Active ? No t available tablet,extended release 24 hr mirtazapine 7.5 mg tablet Active ? Not av ailable multivitamin Active ? Not available naproxen 500 mg tablet Active ? Not avail able Nasonex 50 mcg/actuation Hooper Active ? N ot available Hooper 2 sprays every day by intranasal route. nicotine 14 mg/24 hr daily Active ? Not a vailable transdermal patch nicotine 21 mg/24 hr daily Active ? Not a vailable transdermal patch nicotine 7 mg/24 hr daily Active ? Not av ailable transdermal patch ondansetron HCl 4 mg tablet Active ? Not available pantoprazole 40 mg Active ? Not available tablet,delayed release potassium chloride ER 20 mEq tablet,extended release Active ? Not available Take 1 tablet every day by oral route. potassium chloride ER 20 mEq Active ? Not available tablet,extended release(part/cryst) Robaxin-750 750 mg tablet Active ? Not a vailable Take 1 tablet 3 times a day by oral route. rosuvastatin 5 mg tablet Active ? Not cristian ilable sumatriptan 50 mg tablet Active ? Not cristian ilable trazodone 150 mg tablet Active ? Not avai lable trazodone 50 mg tablet Active ? Not avail able Problems Name Status Onset Date Source ? Herpes Simplex Active 03/03/2018 ? Diabetes Mellitus Active 03/03/2018 ? Hyperlipidemia Active 03/03/2018 ? Depressive Disorder Active 03/03/2018 ? Obstructive Sleep Apnea Syndrome Active 03/03/2018 ? Migraine Active 03/03/2018 ? 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 Hearing Loss Active 03/03/2018 ? Hypertensive Disorder Active 03/03/2018 ? Polyp of Vocal Cord Active 03/03/2018 ? Asthma Active 03/03/2018 ? Gastroesophageal Reflux Disease Active 03/03/2018 ? Lumbago with Sciatica Active 03/03/2018 ? Calcific Tendinitis of Shoulder Active 03/03/2018 ? Subacromial Impingement Active 03/03/2018 ? Procedure by Method Active ? History Pelvic and Perineal Pain Active ? History Pain of Left Shoulder Joint Active ? Hist ory Menopause Present Active ? History Procedures Date Name Performed by ? 03/07/2018 Colonoscopy Information not avai lable Notes: polyps, diverticulosis of sigm oid 02/23/2016 Repair of Shoulder Information not avai lable Notes: Rt - [place] 02/22/2014 Foot Surgery Information not avai lable Notes: Rt [facility]unionectomy - [facility] 02/22/2011 Cholecystectomy Information not avai lable Notes[place] [facility] [place] Operation on Nose Information not avai lable Notes: [facility] [place] Procedure on Vocal Cord Information not available Notes: Polyp removed - [facility] [place]/22/1985 Appendectomy Information not avai lable Notes: [facility] ? Renal Lithotripsy Information not avai lable Notes: 2000, 2005, 2009 (All at [place], [place]) ? Back Surgery Information not avai labrogelio Notes: for sciatica. 09/201511/01/2019 XR, Cervical Spine [facility] (Internal) [address] [place] [address] (Work Place) Results Lab Results Date Name Specimen Result Interpretation Description Value Range Status Address ? 03/08/2018 Pathology TISS - Report results ? Final N [facility] Country Study below [facility] ab (Internal) : [address] Past Encounters None recorded. Social History Tobacco Smoking Status Former Smoker (1 PPD) Vaccine List None recorded. Plan of Care Reminders Provider Appointments None ? ? recorded. Lab None ? ? recorded. Referral None ? ? recorded. Procedures None ? ? recorded. Surgeries None ? ? recorded. Imaging None ? ? recorded. Vitals 03/03/2016 Weight Blood Pressure 104.33 kg 108/80 mm[Hg] 03/06/2015 Height Weight Blood Pressure 156.85 cm 108.14 kg 118/90 mm[Hg] 01/25/2015 Height Weight Blood Pressure 152.4 cm 105.69 kg 132/88 mm[Hg]
[2020-03-14 16:18] LABS: Albumin 3.7 g/dL (3.4-5.0); Anion Gap 11.3 mmol/L (3-11); BUN 5 mg/dL (7-18); CO2 23.7 mmol/L (21.0-32.0); CREATININE 0.94 mg/dL (0.55-1.02); Calcium 8.9 mg/dL (8.5-10.1); Chloride 105 mmol/L (98-107); Glucose 187 mg/dL (74-106); PHOSPHORUS 4.2 mg/dL (2.6-4.7); Potassium 3.6 mmol/L (3.5-5.1); Sodium 140 mmol/L (136-145)
[2020-03-14 16:19] LABS: Lithium 0.44 mmol/L (0.60-1.20)
== END 2020-03-14 14:21 ==
LOC: NCHCN 14:01
PROVIDERS: PCP Nurse Practitioner Family; Visit Provider Nurse Practitioner Psychiatric/Mental Health
DX: Z51.81 Encounter for therapeutic drug level monitoring (principal)
CPT/HCPCS: 80069; 80178

== ENCOUNTER 2020-04-01 14:57 | Outpatient (REF) | payer MEDICAID, SELFPAY ==
[2020-04-01 16:24] LABS: Lithium 0.4 mmol/l (0.6-1.2)
[2020-04-01 16:28] LABS: Albumin 3.9 g/dL (3.4-5.0); Anion Gap 12.9 mmol/L (3-11); BUN 7 mg/dL (7-18); CO2 27.1 mmol/L (21.0-32.0); CREATININE 0.8 mg/dL (0.55-1.02); Calcium 9.8 mg/dL (8.5-10.1); Chloride 102 mmol/L (98-107); Glucose 175 mg/dL (74-106); PHOSPHORUS 4.7 mg/dL (2.6-4.7); Potassium 3.2 mmol/L (3.5-5.1); Sodium 142 mmol/L (136-145)
== END 2020-04-01 14:58 | disposition home or self-care (01) ==
LOC: NCHCN 14:57
PROVIDERS: PCP Nurse Practitioner Family; Visit Provider Nurse Practitioner Psychiatric/Mental Health
DX: Z51.81 Encounter for therapeutic drug level monitoring (principal)
CPT/HCPCS: 80069; 80178

== ENCOUNTER 2020-04-15 15:02 | Outpatient (REF) | payer MEDICAID, SELFPAY ==
[2020-04-15 16:16] LABS: Anion Gap 12.5 mmol/L (3-11); BUN 10 mg/dL (7-18); CO2 27.5 mmol/L (21.0-32.0); CREATININE 0.9 mg/dL (0.55-1.02); Calcium 10.1 mg/dL (8.5-10.1); Chloride 101 mmol/L (98-107); Glucose 219 mg/dL (74-106); Potassium 3.5 mmol/L (3.5-5.1); Sodium 141 mmol/L (136-145)
[2020-04-15 16:36] LABS: Lithium 0.7 mmol/l (0.6-1.2)
== END 2020-04-15 15:03 | disposition home or self-care (01) ==
LOC: NCHCN 15:02
PROVIDERS: PCP Nurse Practitioner Family; Visit Provider Internal Medicine
DX: E87.6 Hypokalemia (principal); Z51.81 Encounter for therapeutic drug level monitoring
CPT/HCPCS: 80048; 80178

== ENCOUNTER 2020-04-26 11:16 | Observation (INO) | payer MEDICAID, SELFPAY ==
--- NOTE | 2020-04-26 11:19 | W.ED.GENAD ---
Discharge Plan Disposition Patient Disposition: [facility] INPATIENT Condition: Serious Discharge Details Chief Complaint: PsychEval Clinical Impression: Suicidal ideation, Leukocytosis Primary Care Provider: Yehuda Delgadillo ED Provider: Joselito Goetz Home Meds and New Rx's Prescriptions: No Action metoprolol succinate [Toprol XL] 50 mg Tablet Extended Release 24 Hr 100 mg PO BID RF: 0 (DME) OneTouch Verio test strips Strip MISCELLANEOUS RF: 0 rosuvastatin [Crestor] 5 mg Tablet 5 mg PO HS RF: 0 (DME) lancets [OneTouch Delica Plus Lancet] 30 gauge Misc MISCELLANEOUS RF: 0 esomeprazole magnesium [Nexium] 40 MG capsule,delayed release(DR/EC) 40 mg PO DAILY RF: 0 metformin 500 mg tablet 500 mg PO .2 am 1 hs RF: 0 lithium carbonate 300 mg tablet 300 mg PO DAILY RF: 0 nicotine [Nicoderm] 14 mg/24 hr Patch 24 Hour 1 patch TRANSDERMAL DAILY RF: 0 nicotine (polacrilex) 2 mg Gum 2 mg BUCCAL Q1H PRNRF: 0 torsemide 10 mg tablet 10 mg PO DAILY RF: 0 lorazepam 0.5 mg tablet 0.5 mg PO DAILY PRNRF: 0 trazodone 150 mg tablet 300 mg PO QHS RF: 0 lorazepam 1 mg tablet 1 mg PO QHS PRNRF: 0 spironolactone 50 mg tablet 50 mg PO DAILY RF: 0 acetaminophen [Acetaminophen Extra Strength] 500 MG tablet 1,000 mg PO TID PRN PRNQty: 180 RF: 0 Medical Decision Making This is a 54-year-old female, past medical history of anxiety, depression, hospitalization at [facility] sometime last month, unsure of exact date. She has had multiple medication changes recently and reports increasing intrusive suicidal thoughts with plan to overdose on her Cymbalta. She does not want to act upon these. She denies recent illness or trauma. No additional concerns or complaints. Will obtain laboratory values for medical screening and if cleared will obtain mental health evaluation. In the meantime a care management plan and CPSO have been ordered. Laboratory values reveal nonspecific leukocytosis of 15.84. No obvious signs of infection, could be a stress reaction. Hemoglobin 13.3 hematocrit 39.6 platelet count 308. Sodium 139, potassium 3.2 creatinine 0.9 with a GFR greater than 60. Glucose 163. Lipase 117 TSH 204 urinalysis negative for obvious infection. [place] 0.3 alcohol less than 3.0. Positive for THC. Mental health evaluation completed, patient cannot commit to safety plan. Plan is to begin looking for a voluntary psychiatric placement. Given this placement will not likely occur today, potentially over the weekend, will discuss with our hospitalist team for admission. I discussed the case with Dr. Nieto. She requested a chest x-ray be obtained for the leukocytosis. X-ray ordered. She also requested that we replenish the potassium, 40 p.o. ordered. She is agreeable to admission and will write holding orders. Medical Records Medical records reviewed: Yes I reviewed the patient's medical records. Lab Data Lab results reviewed: Yes I reviewed the patient's lab results. Lab results narrative: Laboratory Tests Range/Units 04/26/20 04/26/20 04/26/20 11:35 11:35 11:55 WBC (4.4-10.8) 10^3/uL RBC (3.93-5.22) 10^6/uL Hgb (11.2-15.7) g/dL Hct (36.0-46.0) % MCV (80-95) fL MCH (27.0-33.0) pg MCHC (32.0-36.0) % RDW (11.7-14.6) % Plt Count (130-400) 10^3/uL MPV (8.0-11.0) fL Immature Gran % Neutrophils % Lymphocytes % Monocytes % Eosinophils % Basophils % Nucleated RBC % % Absolute Neutrophils (1.2-6.7) 10^3/uL Absolute Lymphocytes (1.2-3.4) 10^3/uL Absolute Monocytes (0.1-0.8) 10^3/uL Absolute Eosinophils (0.0-0.7) 10^3/uL Absolute Basophils (0.0-0.2) 10^3/uL Sodium (136-145) mmol/L 139 Potassium (3.5-5.1) mmol/L 3.2 L Chloride (98-107) mmol/L 101 Carbon Dioxide (21.0-32.0) mmol/L 22.5 Anion Gap (3-11) mmol/L 15.5 H BUN (7-18) mg/dL 9 Creatinine (0.55-1.02) mg/dL 0.9 Estimated GFR/1.73 m2 (mL/min/1.73m2) >= 60.00 Glucose (74-106) mg/dL 163 H Calcium (8.5-10.1) mg/dL 10.0 Total Bilirubin (0.2-1.0) mg/dL 0.5 AST (15-37) U/L 53 H ALT (14-59) U/L 53 Alkaline Phosphatase (46-116) U/L 57 Total Protein (6.4-8.2) g/dL 8.4 H Albumin (3.4-5.0) g/dL 4.3 Lipase (73-393) U/L 117 TSH (0.36-3.74) uIU/mL 2.04 Urine Color (Yellow) Yellow Urine Clarity (Clear) Clear Urine pH (5-8) 6.5 Ur Specific [place] (1.005-1.025) >= 1.030 H Urine Protein (Negative) mg/dL >=300 H Urine Ketones (Negative) mg/dL Negative Urine Blood (Negative) Trace-intact H Urine Nitrite (Negative) Negative Urine Bilirubin (Negative) Negative Urine Urobilinogen (Up TO 0.2) EU/dL 0.2 Ur Leukocyte Esterase (Negative) Negative Urine RBC (0-2) HPF 0-2 Urine WBC (0-5) HPF 5-10 Ur Epithelial Cells (Negative) HPF Many Urine Crystals (Negative) HPF Negative Urine Bacteria (Negative) HPF Few Urine Casts (Negative) LPF Negative Urine Mucus (Negative) Moderate Urine Other (Negative) Ur Culture Indicated? No/sq. contamination Urine Glucose (Negative) mg/dL Negative Urine Opiates Screen (Negative) Negative Urine Methadone Screen (Negative) Negative Ur Barbiturates Screen (Negative) Negative Ur Tricyclics Screen (Negative) Negative Ur Amphetamines Screen (Negative) Negative U Benzodiazepines Scrn (Negative) Negative [place] (0.6-1.2) mmol/l Urine Cocaine Screen (Negative) Negative Ur THC Screen (Negative) Positive A Ethyl Alcohol (<3) mg/dL COVID-19 Source Range/Units 04/26/20 04/26/20 04/26/20 11:55 11:55 11:55 WBC (4.4-10.8) 10^3/uL 15.84 H RBC (3.93-5.22) 10^6/uL 4.52 Hgb (11.2-15.7) g/dL 13.3 Hct (36.0-46.0) % 39.6 MCV (80-95) fL 87.6 MCH (27.0-33.0) pg 29.4 MCHC (32.0-36.0) % 33.6 RDW (11.7-14.6) % 13.2 Plt Count (130-400) 10^3/uL 308 MPV (8.0-11.0) fL 12.0 H Immature Gran % 0.3 Neutrophils % 67.5 Lymphocytes % 22.4 Monocytes % 6.2 Eosinophils % 3.0 Basophils % 0.6 Nucleated RBC % % 0 Absolute Neutrophils (1.2-6.7) 10^3/uL 10.69 H Absolute Lymphocytes (1.2-3.4) 10^3/uL 3.55 H Absolute Monocytes (0.1-0.8) 10^3/uL 0.98 H Absolute Eosinophils (0.0-0.7) 10^3/uL 0.48 Absolute Basophils (0.0-0.2) 10^3/uL 0.10 Sodium (136-145) mmol/L Potassium (3.5-5.1) mmol/L Chloride (98-107) mmol/L Carbon Dioxide (21.0-32.0) mmol/L Anion Gap (3-11) mmol/L BUN (7-18) mg/dL Creatinine (0.55-1.02) mg/dL Estimated GFR/1.73 m2 (mL/min/1.73m2) Glucose (74-106) mg/dL Calcium (8.5-10.1) mg/dL Total Bilirubin (0.2-1.0) mg/dL AST (15-37) U/L ALT (14-59) U/L Alkaline Phosphatase (46-116) U/L Total Protein (6.4-8.2) g/dL Albumin (3.4-5.0) g/dL Lipase (73-393) U/L TSH (0.36-3.74) uIU/mL Urine Color (Yellow) Urine Clarity (Clear) Urine pH (5-8) Ur Specific [place] (1.005-1.025) Urine Protein (Negative) mg/dL Urine Ketones (Negative) mg/dL Urine Blood (Negative) Urine Nitrite (Negative) Urine Bilirubin (Negative) Urine Urobilinogen (Up TO 0.2) EU/dL Ur Leukocyte Esterase (Negative) Urine RBC (0-2) HPF Urine WBC (0-5) HPF Ur Epithelial Cells (Negative) HPF Urine Crystals (Negative) HPF Urine Bacteria (Negative) HPF Urine Casts (Negative) LPF Urine Mucus (Negative) Urine Other (Negative) Ur Culture Indicated? Urine Glucose (Negative) mg/dL Urine Opiates Screen (Negative) Urine Methadone Screen (Negative) Ur Barbiturates Screen (Negative) Ur Tricyclics Screen (Negative) Ur Amphetamines Screen (Negative) U Benzodiazepines Scrn (Negative) [place] (0.6-1.2) mmol/l 0.3 L Urine Cocaine Screen (Negative) Ur THC Screen (Negative) Ethyl Alcohol (<3) mg/dL < 3.0 COVID-19 Source Range/Units 04/26/20 14:10 WBC (4.4-10.8) 10^3/uL RBC (3.93-5.22) 10^6/uL Hgb (11.2-15.7) g/dL Hct (36.0-46.0) % MCV (80-95) fL MCH (27.0-33.0) pg MCHC (32.0-36.0) % RDW (11.7-14.6) % Plt Count (130-400) 10^3/uL MPV (8.0-11.0) fL Immature Gran % Neutrophils % Lymphocytes % Monocytes % Eosinophils % Basophils % Nucleated RBC % % Absolute Neutrophils (1.2-6.7) 10^3/uL Absolute Lymphocytes (1.2-3.4) 10^3/uL Absolute Monocytes (0.1-0.8) 10^3/uL Absolute Eosinophils (0.0-0.7) 10^3/uL Absolute Basophils (0.0-0.2) 10^3/uL Sodium (136-145) mmol/L Potassium (3.5-5.1) mmol/L Chloride (98-107) mmol/L Carbon Dioxide (21.0-32.0) mmol/L Anion Gap (3-11) mmol/L BUN (7-18) mg/dL Creatinine (0.55-1.02) mg/dL Estimated GFR/1.73 m2 (mL/min/1.73m2) Glucose (74-106) mg/dL Calcium (8.5-10.1) mg/dL Total Bilirubin (0.2-1.0) mg/dL AST (15-37) U/L ALT (14-59) U/L Alkaline Phosphatase (46-116) U/L Total Protein (6.4-8.2) g/dL Albumin (3.4-5.0) g/dL Lipase (73-393) U/L TSH (0.36-3.74) uIU/mL Urine Color (Yellow) Urine Clarity (Clear) Urine pH (5-8) Ur Specific [place] (1.005-1.025) Urine Protein (Negative) mg/dL Urine Ketones (Negative) mg/dL Urine Blood (Negative) Urine Nitrite (Negative) Urine Bilirubin (Negative) Urine Urobilinogen (Up TO 0.2) EU/dL Ur Leukocyte Esterase (Negative) Urine RBC (0-2) HPF Urine WBC (0-5) HPF Ur Epithelial Cells (Negative) HPF Urine Crystals (Negative) HPF Urine Bacteria (Negative) HPF Urine Casts (Negative) LPF Urine Mucus (Negative) Urine Other (Negative) Ur Culture Indicated? Urine Glucose (Negative) mg/dL Urine Opiates Screen (Negative) Urine Methadone Screen (Negative) Ur Barbiturates Screen (Negative) Ur Tricyclics Screen (Negative) Ur Amphetamines Screen (Negative) U Benzodiazepines Scrn (Negative) [place] (0.6-1.2) mmol/l Urine Cocaine Screen (Negative) Ur THC Screen (Negative) Ethyl Alcohol (<3) mg/dL COVID-19 Source Nasopharyx HPI General Mode of arrival: ambulatory. Date/Time Provider Initiated Documentation: 04/26/20 11:19. Limitations to Documentation: no limitations. Information obtained by: patient. HPI Narrative: This is a 74-year-old female with a past medical history that includes anxiety, asthma, obesity, chronic headaches, history of drug abuse, depression, diabetes, hypertension, hyperlipidemia, PTSD, presenting to the ER at the request of her outpatient mental health team. Patient denies any current smoking or alcohol abuse. She denies any current drug abuse. Does admit to marijuana use. She denies recent illness or trauma. She states that sometime last week, unsure of the exact date, was admitted to [facility], her medications were changed, and she has been feeling worse. She states that she has not taken her Viibryd in 1 week. Her lithium doses have been changed multiple times in the past couple of weeks. She states that for approximately 1 week she has felt suicidal, would overdose on her Cymbalta, and these thoughts are very intrusive although she would prefer not to act upon them if at all possible. She believes that hospitalization is necessary. She denies acting upon any of her thoughts today, denies any self-harm or homicidal ideations. She current denies headache, visual changes, fever, neck pain, chest pain, shortness breath abdominal pain, nausea, vomiting, change in bowel or bladder function, numbness, tingling, weakness. Related Data Home Medications Medication Instructions Recorded Confirmed esomeprazole magnesium [Nexium] 40 mg PO DAILY tab-cap 05/11/16 04/26/20 acetaminophen [Acetaminophen Extra 1,000 mg PO TID PRN PRN #180 tab 07/23/16 04/26/20 Strength] OneTouch Verio test strips 10/31/19 02/12/20 lancets [OneTouch Delica Plus 10/31/19 02/12/20 Lancet] metoprolol succinate [Toprol XL] 100 mg PO BID 10/31/19 04/26/20 rosuvastatin [Crestor] 5 mg PO HS 10/31/19 04/26/20 metformin 500 mg tablet 500 mg PO .2 am 1 hs tab-cap 02/12/20 04/26/20 lithium carbonate 300 mg tablet 300 mg PO DAILY 03/11/20 04/26/20 lorazepam 0.5 mg PO DAILY PRN 04/26/20 04/26/20 lorazepam 1 mg PO QHS PRN 04/26/20 04/26/20 nicotine (polacrilex) 2 mg BUCCAL Q1H PRN 04/26/20 04/26/20 nicotine [Nicoderm] 1 patch TRANSDERMAL DAILY 04/26/20 04/26/20 spironolactone 50 mg PO DAILY 04/26/20 04/26/20 torsemide 10 mg PO DAILY 04/26/20 04/26/20 trazodone 300 mg PO QHS 04/26/20 04/26/20 Previous Rx's Medication Instructions Recorded acetaminophen [Acetaminophen Extra 1,000 mg PO TID PRN PRN #180 tab 07/23/16 Strength] Allergies Allergy/AdvReac Type Severity Reaction Status Date / Time baclofen Allergy Intermediate rash Verified 04/26/20 11:29 duloxetine Allergy Intermediate Unverified 04/26/20 11:29 methylprednisolone Allergy Intermediate Unverified 04/26/20 11:29 [From Medrol] lactase [From Dairy Aid] Allergy Mild Verified 04/26/20 11:29 lurasidone [From Latuda] Allergy Unknown Unverified 04/26/20 11:29 tree and shrub pollen Allergy Unknown Unverified 04/26/20 11:29 General CLARIBEL: 2 Review of Systems Constitutional Constitutional: Denies fatigue, Denies fever(s), Reports headache(s) (Chronic) and Denies weakness Eyes Eyes: Denies change in vision ENT Ears, Nose, Mouth, and Throat: Reports headache(s) (Chronic) Cardiovascular Cardiovascular: Denies chest pain and Denies dyspnea Respiratory Respiratory: Denies cough and Denies dyspnea Gastrointestinal Gastrointestinal: Denies abdominal pain, Reports nausea and Denies vomiting Genitourinary Genitourinary: Denies dysuria Musculoskeletal Musculoskeletal: Denies back pain and Denies tingling Integumentary/Breasts Skin/Breast: Denies rash Neurologic Neurologic: Reports headache(s) (Chronic), Denies tingling and Denies weakness Psychiatric Psychiatric: Reports anxiety, Reports depression, Denies homicidal ideation and Reports suicidal ideation Endocrine Endocrine: Denies fatigue [facility] Medical History Anxiety disorder Asthma, mild intermittent BMI 40.0-44.9, adult Calcific tendinitis of shoulder Chronic headache Cocaine abuse, in remission Depression Diabetes Diabetic neuropathy Elevated liver enzymes HSV infection HTN (hypertension) Hyperlipidemia Lumbago with sciatica Nonalcoholic steatohepatitis REX (obstructive sleep apnea) Palpitations PTSD (post-traumatic stress disorder) Sacroiliac joint dysfunction of left side Seasonal mood disorder Sensorineural hearing loss (SNHL) Subacromial impingement Tobacco abuse Vocal cord polyp Surgical History Appendectomy bunion correction via Cheilectomy Cholecystectomy History of surgical procedure foraminotomy Hysterectomy, Laproscopic Lithotripsy x3 Nerve Decompression Lumbar spine S/P shoulder surgery Family History Father Hypertension Brother Hypertension Other Diabetes Social History Smoking/Tobacco Use Status: Former Tobacco Use Quit Date: 02/27/20 Smoking risk assessment performed?: Yes Alcohol Intake: former Year quit: 2011 Drug use: Current Sobriety Substance use type: former substance user, marijuana and crack/cocaine Details: occasional marijuana. Currently using patch and gum for nicotine replacement- quit february 2020 Household members: family Housing: house Number of Children: 0 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; former dental hygienist Pets and animals: No What is your relationship status?: never Panel score (0-1 are the most socially isolated patients): 0 What type of physical activity do you participate in: none and independent ambulation Seatbelt use: always Do you feel safe at home: Yes Do you feel safe in your relationship?: Yes Exam Const General: cooperative, healthy appearing, comfortable and anxious (Tearful) Orientation: alert, awake and oriented x3 HENMT Head: normal to inspection, normocephalic and atraumatic Face and sinus: normal facial exam Mouth: moist mucous membranes Eyes General: appearance normal, both eyes and all related structures Conjunctivae: conjunctivae normal Sclera: sclerae normal Neck Neck: normal visual inspection, full ROM, trachea midline, supple and nontender Resp Effort & Inspection: normal respiratory effort and able to speak in complete sentences Auscultation: clear to auscultation bilaterally Cardio Rate: regular rate Rhythm: regular rhythm GI Palpation: soft and nontender Back/Spine/Pelvis Back: No back tenderness Skin General skin exam: no rashes or lesions noted Neuro General: patient alert, patient awake, patient oriented x3, moves all extremities and no focal motor deficits Cognition: normal cognition Speech: speech normal Gait: normal gait Motor: muscle tone normal throughout Sensory Exam: no sensory deficits noted Extrem General: normal to inspection and full ROM Psych Appearance: grossly normal Mental Status: mental status grossly normal Speech and Movement: speech and movement normal Mood: anxious mood and dysthymic mood Affect: sad Attitude: cooperative Thought Process: normal Thought Content: suicidality Insight: fair Judgment: fair
[2020-04-26 11:20] VITALS: BP 165/94; PULSE 79; RESP 20; TEMP 37.3; O2SAT 97
[2020-04-26 11:49] LABS: Bilirubin Negative (Negative); Blood Trace-intact (Negative); Clarity Clear (Clear); Glucose Negative (Negative); Ketones Negative (Negative); Leukocyte Esterase Negative (Negative); Nitrite Negative (Negative); Specific Gravity >= 1.030 (1.005-1.025); Urobilinogen 0.2 EU/dL (Up TO 0.2); pH 6.5 (5-8)
[2020-04-26 11:58] LABS: Bacteria Few HPF (Negative); Epithelial Cells Many HPF (Negative); RBC 0-2 HPF (0-2)
[2020-04-26 11:59] LABS: C & S Indicated? No/Sq. Contamination; Casts Negative LPF (Negative); Crystals Negative HPF (Negative); Mucus Moderate (Negative)
[2020-04-26 12:03] LABS: *AMPHETAMINES SCREEN URINE Negative (Negative); *BARBITURATES SCREEN URINE Negative (Negative); *BENZODIAZEPINES SCREEN URINE Negative (Negative); Cannabinoids THC POSITIVE (Negative); Cocaine Screen,Urine Negative (Negative); METHADONE URINE SCREEN Negative (Negative); OPIATES URINE SCREEN Negative (Negative)
[2020-04-26 12:04] LABS: Tricyclic Antidepressants Negative (Negative)
[2020-04-26 12:10] LABS: Abs Immature Grans 0.04 10^3/uL (0.0-0.06); Absolute Lymphocyte Count 3.55 10^3/uL (1.2-3.4); Absolute Monocyte Count 0.98 10^3/uL (0.1-0.8); Basophils % 0.6; HCT 39.6 % (36.0-46.0); HGB 13.3 g/dL (11.2-15.7); Immature Grans % 0.3; Lymphocytes % 22.4; MCH 29.4 pg (27.0-33.0); MCHC 33.6 % (32.0-36.0); MCV 87.6 fL (80-95); Monocytes % 6.2; Neutrophils % 67.5; Nucleated RBC 0 %; Platelet Count 308 10^3/uL (130-400); RBC 4.52 10^6/uL (3.93-5.22); RDW 13.2 % (11.7-14.6); RDW-SD 42.2 fL; WBC 15.84 10^3/uL (4.4-10.8)
[2020-04-26 12:12] LABS: Absolute Eosinophil Count 0.48 10^3/uL (0.0-0.7); Absolute Neutrophil Count 10.69 10^3/uL (1.2-6.7)
--- NOTE | 2020-04-26 12:26 | CMSP_ITS ---
- If Service Date Differs Date of service: 04/26/20 Time of Service: 12:26 Care Management Safety Plan Status: Voluntary VOLUNTARY FOR INPATIENT PSYCHIATRIC STABILIZATION. Patient is appropriate in all interactions since arriving at [facility]; Pt has demonstrated appropriate coping and communication skills, has articulated her needs and concerns and is fully engaged during staff interactions. Huddle done on 04/26/2020 at 2:15 pm with Joselito, ED provider, Kim, nursing newman Rosalinda duval RN, and Yuliet, medicare compliance auditor. Safety plan has been established with patient, and care team, to adhere to patient goals, identify restrictions based on behavioral status, address nutrition, and determine allowed personal belongings, tools for hygiene and personal care. Determine level of activity including ambulation, level of supervision, visitors, and determine privileges based on behaviors and level of engagement by patient. SAFETY PLAN: 1. Will remain on suicide precautions and in paper clothes. 2. Will remain in room under direct supervision of one-on-one staff at all times provided by CPSO, GWENDOLYN, TIME RECORDER inspector assembly. 3. May have paper cups, plates, finger foods as well as a cardboard spoon with which to eat meals. 4. Follow [facility] Management of the Admitted Behavioral Health Patient policy. 5. Shower permitted with supervision and at RN discretion. 6. No personal belongings 7. No visitors per [facility] Covid Policy. 8. Activities: Television with remote when available, coloring books, crayons, and other activities at RN discretion. 9. Bathroom: Must be accompanied by staff while in the ED. If moved to Med/Surg, may use bathroom in room without supervision. 10. Phone: Use of cell phone at RN discretion. 11. Due to VOLUNTARY status, if patient wishes to leave [facility], staff will contact [facility] Crisis Screener ([phone]) and On-Call End Packer ([phone]) as soon as possible. In the event of elopement, notify [facility] Police ([phone]). Patient is currently voluntarily at [facility] and seeking inpatient admission when a bed becomes available. [facility] Frontline Filling Station Equipment Mechanic will continue seeking placement. Please contact the [employer] Helper End Packer ([phone]) and [facility] Filling Station Equipment Mechanic ([phone]) for any needed changes in the Safety Plan. Safety plan has been provided to interdepartmental care team.
--- NOTE | 2020-04-26 12:26 | PDOC.CMSAFED ---
- If Service Date Differs Date of service: 04/26/20 Time of Service: 12:26 Care Management Safety Plan Status: Voluntary VOLUNTARY FOR INPATIENT PSYCHIATRIC STABILIZATION. Patient is appropriate in all interactions since arriving at [facility]; Pt has demonstrated appropriate coping and communication skills, has articulated her needs and concerns and is fully engaged during staff interactions. Huddle done on 04/26/2020 at 2:15 pm with Joselito, ED provider, Kim, nursing field operations supervisor, Rosalinda RN, and Yuliet, furnace caretaker. Safety plan has been established with patient, and care team, to adhere to patient goals, identify restrictions based on behavioral status, address nutrition, and determine allowed personal belongings, tools for hygiene and personal care. Determine level of activity including ambulation, level of supervision, visitors, and determine privileges based on behaviors and level of engagement by patient. SAFETY PLAN: 1. Will remain on suicide precautions and in paper clothes. 2. Will remain in room under direct supervision of one-on-one staff at all times provided by [employer], GWENDOLYN, [employer] profiling machine set up operator. 3. May have paper cups, plates, finger foods as well as a cardboard spoon with which to eat meals. 4. Follow [facility] Management of the Admitted Behavioral Health Patient policy. 5. Shower permitted with supervision and at RN discretion. 6. No personal belongings 7. No visitors per [facility] Covid Policy. 8. Activities: Television with remote when available, coloring books, crayons, and other activities at RN discretion. 9. Bathroom: Must be accompanied by staff while in the ED. If moved to Med/Surg, may use bathroom in room without supervision. 10. Phone: Use of cell phone at RN discretion. 11. Due to VOLUNTARY status, if patient wishes to leave [facility], staff will contact [facility] Crisis Screener ([phone]) and On-Call Recreation Programmer ([phone]) as soon as possible. In the event of elopement, notify [facility] Police ([phone]). Patient is currently voluntarily at [facility] and seeking inpatient admission when a bed becomes available. [facility] Frontline Material Analyst will continue seeking placement. Please contact the Commissions Analyst Recreation Programmer ([phone]) and [facility] Material Analyst ([phone]) for any needed changes in the Safety Plan. Safety plan has been provided to interdepartmental care team.
[2020-04-26 12:27] LABS: Lithium 0.3 mmol/l (0.6-1.2)
[2020-04-26 12:33] LABS: ALT 53 U/L (14-59); AST 53 U/L (15-37); Albumin 4.3 g/dL (3.4-5.0); Alkaline Phosphatase 57 U/L (46-116); Anion Gap 15.5 mmol/L (3-11); BUN 9 mg/dL (7-18); Bilirubin, Total 0.5 mg/dL (0.2-1.0); CO2 22.5 mmol/L (21.0-32.0); CREATININE 0.9 mg/dL (0.55-1.02); Chloride 101 mmol/L (98-107); Glucose 163 mg/dL (74-106); Lipase 117 U/L (73-393); Potassium 3.2 mmol/L (3.5-5.1); Sodium 139 mmol/L (136-145); TSH (W/Ref FT4) 2.04 uIU/mL (0.36-3.74); Total Protein 8.4 g/dL (6.4-8.2)
[2020-04-26 12:34] LABS: ETHANOL BLOOD < 3.0 mg/dL (<3)
[2020-04-26] MEDS: LORazepam 0.5 MG TAB PO ×2 (13:08→19:08)
--- NOTE | 2020-04-26 14:31 | CMPROGNOTE_ITS ---
- If Service Date Differs Date of service: 04/26/20 Time of Service: 14:31 Care Management Progress Note S/O: Lory presents to the ED due to worsening depression and suicidal thoughts with a plan of overdosing on cymbalta. Lory has a history of depression, PTSD, and mood disorder with multiple psychiatric hospitalizations. Her last inpatient stay was at the [facility] on February 27, 2020. Lory reports she was at the [facility] for 9 days. Over the past week or so, her anxiety has been through the roof. She reports difficulty concentrating, poor sleep, and racing thoughts. She shares she is afraid and just needs for someone to tell her she will be okay. A: Lory is a 54 year old female admitted to [facility] for suicidal ideation. P: A referral is faxed to [facility] for review. No other psychiatric hospital is accepting referrals at this time. Lory will remain at [facility] on voluntary status while [facility] continues to seek placement for her. CM will continue to follow.
[2020-04-26] MEDS: Potassium Chloride 20 MEQ TABCR 40 MEQ PO (15:44)
[2020-04-26] MEDS: Enoxaparin 40 MG/0.4 ML SYR SC (15:44)
[2020-04-26] MEDS: Acetaminophen 325 MG TAB 650 MG PO ×2 (15:44→21:22)
[2020-04-26 16:25] VITALS: BP 171/87; PULSE 90; RESP 18; TEMP 36.8; O2SAT 97
--- NOTE | 2020-04-26 16:45 | HPE_ITS ---
Date of service: 04/26/20 Time of Service: 16:45 Assessment and Plan Assessment and plan (1) Suicidal ideation: Status: Acute Assessment and plan: Patient admits to acute suicidal ideation. She planned to take all of her Cymbalta. She feels she is not getting adequate treatment for her depression symptoms. She voices concern that she has to come back to the hospital repeatedly for her depression. She is an active management at the [facility] with Dr. Aviles. I have a call into Dr. Aviles regarding her medical management. The plan is to keep her on her present medications. She is in line for a voluntary admission to a psychiatric facility. (2) Shingles: Status: Acute Assessment and plan: Patient had an outbreak of shingles about a week ago. She did not get any specific treatment for it. These appear to have dried up and do not appear to be causing any significant postherpetic neuralgia. Symptomatic treatment only. (3) Leukocytosis: Status: Acute Assessment and plan: Patient's white count is elevated at 15.84 thousand. She does not appear to have a source of infection based on her clinical exam or urinalysis. Will repeat her exam and labs in the a.m. Monitor her for any signs of fever. (4) Hypomagnesemia: Status: Acute (5) REX on CPAP: Status: Acute Assessment and plan: Patient has a history of obstructive sleep apnea. She has been on a BiPAP device. She can only take it if she gets her sleep medicines, trazodone and lorazepam. She notes that recently she has been too anxious to wear the BiPAP device. Will order her home device. (6) Tobacco use disorder: Status: Acute Assessment and plan: Patient has been on nicotine replacement, patch and gum. 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 She apparently has been a candidate for a fusion procedure but opted not to have that. We will avoid opiate medications. As needed acetaminophen for now. (8) Diabetes: Status: None Assessment and plan: She is on Metformin for her diabetes. We will have her on a diabetic diet. Monitor her blood sugars. (9) HTN (hypertension): Status: None Assessment and plan: Blood pressure moderately elevated at 171/87. She is concerned that the elevated blood pressure may be causing some of her symptoms. We will keep her on her usual Toprol-XL 100 mg twice daily and monitor her vital signs. History of Present Illness History of Present Illness Chief Complaint: Suicidal ideation Narrative: This is a 54-year-old female who has had on and off trouble with depression and suicidal ideation over the past several years. She is actively managed by a psychiatrist at the [facility]. Dr. Aviles has recently changed her to Viibryd and tapered her off of Cymbalta. She states when increasing from Viibryd 20 mg to 40 mg she began to feel awful. She describes increased anxiety, hot and cold feelings, inability to sit still, sleep disturbance. Today she was so distraught she thought she would take all of her Cymbalta. She sought psychiatric help through referral to the emergency room. In the emergency room she was cooperative and voluntarily agreeing to psychiatric admission. She is being observed in the transitional care bed with [facility]. Will resume and maintain on current meds. I did put a call in to Dr. Aviles. Left message. Review of Systems Narrative: Patient is tearful at times. She displays a full range of affect. She is standing in the room and pacing. She is complaining of some lower back pain. She denies any respiratory complaints. No cough no shortness of breath. She is not having any chest discomfort. She does not describe any GI or problems. She has swelling around her eyelids which happens if she does not take her torsemide. She had no peripheral edema. [facility] Medical History (Updated 04/26/20 @ 17:06 by Jose Antonio Galeas MD) Abnormal movement Anxiety disorder Arthritis of right acromioclavicular joint (07/15/16) Asthma, mild intermittent BMI 40.0-44.9, adult Calcific tendinitis of both shoulders (05/11/16) Calcific tendinitis of shoulder Cocaine abuse, in remission Depression Diabetes Diabetic neuropathy Diffuse pain Dysphonia (03/26/14) Elevated liver enzymes GERD (gastroesophageal reflux disease) (03/26/14) GERD with apnea (03/26/14) HSV infection HTN (hypertension) Hyperlipidemia Lumbago with sciatica Medication overuse headache Migraine headache without aura Nonalcoholic steatohepatitis REX (obstructive sleep apnea) Palpitations PTSD (post-traumatic stress disorder) Sacroiliac joint dysfunction of left side Seasonal mood disorder Sensorineural hearing loss (SNHL) Sensorineural hearing loss, asymmetrical (03/26/14) Subacromial impingement Tension headache Tobacco abuse Vocal cord polyp Surgical History Appendectomy bunion correction via Cheilectomy Cholecystectomy History of surgical procedure foraminotomy Hysterectomy, Laproscopic Lithotripsy x3 Nerve Decompression Lumbar spine S/P shoulder surgery Family History Father Hypertension Brother Hypertension Other Diabetes Social History Smoking/Tobacco Use Status: Former Tobacco Use Quit Date: 02/27/20 Smoking risk assessment performed?: Yes Alcohol Intake: former Year quit: 2011 Drug use: Current Sobriety Substance use type: former substance user, marijuana and crack/cocaine Details: occasional marijuana. Currently using patch and gum for nicotine replacement- quit february 2020 Household members: family Housing: house Number of Children: 0 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; former dental hygienist Pets and animals: No What is your relationship status?: never Panel score (0-1 are the most socially isolated patients): 0 What type of physical activity do you participate in: none and independent ambulation Seatbelt use: always Do you feel safe at home: Yes Do you feel safe in your relationship?: Yes Meds Home Medications and Allergies Allergies Allergy/AdvReac Type Severity Reaction Status Date / Time baclofen Allergy Intermediate rash Verified 04/26/20 11:29 duloxetine Allergy Intermediate Unverified 04/26/20 11:29 methylprednisolone Allergy Intermediate Unverified 04/26/20 11:29 [From Medrol] lactase [From Dairy Aid] Allergy Mild Verified 04/26/20 11:29 lurasidone [From Latuda] Allergy Unknown Unverified 04/26/20 11:29 tree and shrub pollen Allergy Unknown Unverified 04/26/20 11:29 Home Medications Medication Instructions Recorded Confirmed Type esomeprazole magnesium [Nexium] 40 mg PO DAILY tab-cap 05/11/16 04/26/20 History acetaminophen [Acetaminophen Extra 1,000 mg PO TID PRN PRN #180 tab 07/23/16 04/26/20 Rx Strength] OneTouch Verio test strips 10/31/19 02/12/20 History lancets [OneTouch Delica Plus 10/31/19 02/12/20 History Lancet] metoprolol succinate [Toprol XL] 100 mg PO BID 10/31/19 04/26/20 History rosuvastatin [Crestor] 5 mg PO HS 10/31/19 04/26/20 History metformin 500 mg tablet 500 mg PO .2 am 1 hs tab-cap 02/12/20 04/26/20 History lithium carbonate 300 mg tablet 300 mg PO DAILY 03/11/20 04/26/20 History lorazepam 0.5 mg PO DAILY PRN 04/26/20 04/26/20 History lorazepam 1 mg PO QHS PRN 04/26/20 04/26/20 History nicotine (polacrilex) 2 mg BUCCAL Q1H PRN 04/26/20 04/26/20 History nicotine [Nicoderm] 1 patch TRANSDERMAL DAILY 04/26/20 04/26/20 History spironolactone 50 mg PO DAILY 04/26/20 04/26/20 History torsemide 10 mg PO DAILY 04/26/20 04/26/20 History trazodone 300 mg PO QHS 04/26/20 04/26/20 History vilazodone [Viibryd] 20 mg PO DAILY@0830 04/26/20 04/26/20 History Exam Narrative Exam Narrative: On exam patient is standing and pacing in the room. She is alert and attentive. She is able to give a good history. As noted and review of systems she displays a very full affect going from smiling laughing to crying and quite despondent. Her speech is clear and not pressured. She had no respiratory difficulty. Her lungs sounded completely clear to auscultation on the right and left. Her heart sounds are somewhat muffled but appear regular and there is no murmur. Her abdomen is quite markedly obese but overall soft and nontender in all 4 quadrants. Her lower extremities show no significant edema and otherwise appear well perfused. Neurologically she has good balance, ambulates without difficulty. Exam of her lower back region shows no outward sign of deformity she has 2 crusted lesions about 5 mm in size just to the left of midline at around the level of L1 or L2. There is no surrounding erythema or apparent tenderness. Results Labs Result diagrams: 04/26/20 11:55 04/26/20 11:55 Labs: Laboratory Results - last 24 hr 04/26/20 04/26/20 04/26/20 11:35 11:35 11:55 WBC RBC Hgb Hct MCV MCH MCHC RDW Plt Count MPV Immature Gran % Neutrophils % Lymphocytes % Monocytes % Eosinophils % Basophils % Nucleated RBC % Absolute Neutrophils Absolute Lymphocytes Absolute Monocytes Absolute Eosinophils Absolute Basophils Sodium 139 Potassium 3.2 L Chloride 101 Carbon Dioxide 22.5 Anion Gap 15.5 H BUN 9 Creatinine 0.9 Estimated GFR/1.73 m2 >= 60.00 Glucose 163 H Calcium 10.0 Total Bilirubin 0.5 AST 53 H ALT 53 Alkaline Phosphatase 57 Total Protein 8.4 H Albumin 4.3 Lipase 117 TSH 2.04 Urine Color Yellow Urine Clarity Clear Urine pH 6.5 Ur Specific [place] >= 1.030 H Urine Protein >=300 H Urine Ketones Negative Urine Blood Trace-intact H Urine Nitrite Negative Urine Bilirubin Negative Urine Urobilinogen 0.2 Ur Leukocyte Esterase Negative Urine RBC 0-2 Urine WBC 5-10 Ur Epithelial Cells Many Urine Crystals Negative Urine Bacteria Few Urine Casts Negative Urine Mucus Moderate Urine Other Ur Culture Indicated? No/sq. contamination Urine Glucose Negative Urine Opiates Screen Negative Urine Methadone Screen Negative Ur Barbiturates Screen Negative Ur Tricyclics Screen Negative Ur Amphetamines Screen Negative U Benzodiazepines Scrn Negative [place] Urine Cocaine Screen Negative Ur THC Screen Positive A Ethyl Alcohol COVID-19 Source 04/26/20 04/26/20 04/26/20 11:55 11:55 11:55 WBC 15.84 H RBC 4.52 Hgb 13.3 Hct 39.6 MCV 87.6 MCH 29.4 MCHC 33.6 RDW 13.2 Plt Count 308 MPV 12.0 H Immature Gran % 0.3 Neutrophils % 67.5 Lymphocytes % 22.4 Monocytes % 6.2 Eosinophils % 3.0 Basophils % 0.6 Nucleated RBC % 0 Absolute Neutrophils 10.69 H Absolute Lymphocytes 3.55 H Absolute Monocytes 0.98 H Absolute Eosinophils 0.48 Absolute Basophils 0.10 Sodium Potassium Chloride Carbon Dioxide Anion Gap BUN Creatinine Estimated GFR/1.73 m2 Glucose Calcium Total Bilirubin AST ALT Alkaline Phosphatase Total Protein Albumin Lipase TSH Urine Color Urine Clarity Urine pH Ur Specific [place] Urine Protein Urine Ketones Urine Blood Urine Nitrite Urine Bilirubin Urine Urobilinogen Ur Leukocyte Esterase Urine RBC Urine WBC Ur Epithelial Cells Urine Crystals Urine Bacteria Urine Casts Urine Mucus Urine Other Ur Culture Indicated? Urine Glucose Urine Opiates Screen Urine Methadone Screen Ur Barbiturates Screen Ur Tricyclics Screen Ur Amphetamines Screen U Benzodiazepines Scrn [place] 0.3 L Urine Cocaine Screen Ur THC Screen Ethyl Alcohol < 3.0 COVID-19 Source 04/26/20 14:10 WBC RBC Hgb Hct MCV MCH MCHC RDW Plt Count MPV Immature Gran % Neutrophils % Lymphocytes % Monocytes % Eosinophils % Basophils % Nucleated RBC % Absolute Neutrophils Absolute Lymphocytes Absolute Monocytes Absolute Eosinophils Absolute Basophils Sodium Potassium Chloride Carbon Dioxide Anion Gap BUN Creatinine Estimated GFR/1.73 m2 Glucose Calcium Total Bilirubin AST ALT Alkaline Phosphatase Total Protein Albumin Lipase TSH Urine Color Urine Clarity Urine pH Ur Specific [place] Urine Protein Urine Ketones Urine Blood Urine Nitrite Urine Bilirubin Urine Urobilinogen Ur Leukocyte Esterase Urine RBC Urine WBC Ur Epithelial Cells Urine Crystals Urine Bacteria Urine Casts Urine Mucus Urine Other Ur Culture Indicated? Urine Glucose Urine Opiates Screen Urine Methadone Screen Ur Barbiturates Screen Ur Tricyclics Screen Ur Amphetamines Screen U Benzodiazepines Scrn [place] Urine Cocaine Screen Ur THC Screen Ethyl Alcohol COVID-19 Source Nasopharyx Last Vital Signs Temp 36.8 C 04/26/20 16:25 Pulse 90 04/26/20 16:25 Resp 18 04/26/20 16:25 BP 171/87 H 04/26/20 16:25 Pulse Ox 97 04/26/20 16:25 COVID-19 Screening Have you, or household traveled for leisure in last 14 days?: No
[2020-04-26] MEDS: metFORMIN 500 MG TAB PO (17:48)
[2020-04-26] MEDS: Nicotine 2 MG GUM BC (17:48)
--- NOTE | 2020-04-26 19:29 | NUR.NOTE ---
Pt is refusing chest xray until she can talk to the doctor about the reason for the test tomorrow. Doctor Emilia is aware. Nursing Note:
[2020-04-26] MEDS: Metoprolol CR 50 MG TABCR 100 MG PO (19:44)
[2020-04-26] MEDS: Ibuprofen 600 MG TAB PO (21:23)
[2020-04-26] MEDS: LORazepam 1 MG TAB PO (21:24)
[2020-04-26] MEDS: traZODone 100 MG TAB 300 MG PO (21:24)
[2020-04-26] MEDS: Rosuvastatin 5 MG TAB PO (21:24)
[2020-04-26] MEDS: Nicotine 14 MG/24 HR PATCH TD (21:55)
[2020-04-26 23:14] LABS: COVID-19 PCR Negative (Negative)
[2020-04-27 01:30] VITALS: BP 145/84; PULSE 68; RESP 16; TEMP 36.4; O2SAT 98
[2020-04-27] MEDS: Acetaminophen 325 MG TAB 650 MG PO ×2 (01:36→11:31)
[2020-04-27] MEDS: LORazepam 0.5 MG TAB PO ×3 (01:37→08:48)
[2020-04-27 07:01] LABS: Abs Immature Grans 0.05 10^3/uL (0.0-0.06); Absolute Basophil Count 0.08 10^3/uL (0.0-0.2); Absolute Lymphocyte Count 2.94 10^3/uL (1.2-3.4); Absolute Monocyte Count 0.87 10^3/uL (0.1-0.8); Basophils % 0.7; Eosinophils % 5.1; HCT 34.9 % (36.0-46.0); HGB 11.8 g/dL (11.2-15.7); Immature Grans % 0.4; Lymphocytes % 24.4; MCH 29.6 pg (27.0-33.0); MCHC 33.8 % (32.0-36.0); MCV 87.5 fL (80-95); MPV 12.5 fL (8.0-11.0); Monocytes % 7.2; Neutrophils % 62.2; Nucleated RBC 0 %; Platelet Count 251 10^3/uL (130-400); RBC 3.99 10^6/uL (3.93-5.22); RDW 13.2 % (11.7-14.6); RDW-SD 42.9 fL; WBC 12.06 10^3/uL (4.4-10.8)
[2020-04-27 07:07] LABS: Absolute Eosinophil Count 0.62 10^3/uL (0.0-0.7)
[2020-04-27 07:16] LABS: Anion Gap 13.3 mmol/L (3-11); BUN 10 mg/dL (7-18); CO2 22.7 mmol/L (21.0-32.0); CREATININE 0.9 mg/dL (0.55-1.02); Calcium 9.3 mg/dL (8.5-10.1); Chloride 101 mmol/L (98-107); Glucose 223 mg/dL (74-106); Magnesium 1.9 mg/dL (1.8-2.4); Potassium 3.4 mmol/L (3.5-5.1); Sodium 137 mmol/L (136-145)
[2020-04-27] MEDS: Spironolactone 50 MG TAB PO (08:30)
[2020-04-27] MEDS: Metoprolol CR 50 MG TABCR 100 MG PO (08:30)
[2020-04-27] MEDS: Esomeprazole 40 MG CAPCR PO (08:30)
[2020-04-27] MEDS: Lithium Carbonate 300 MG CAP PO (08:31)
[2020-04-27] MEDS: Torsemide 20 MG TAB 10 MG PO (08:31)
[2020-04-27] MEDS: Nicotine 14 MG/24 HR PATCH TD (08:32)
[2020-04-27] MEDS: Insulin Aspart 300 UNITS/3 ML PEN SC (08:32)
[2020-04-27 09:00] VITALS: BP 125/89; PULSE 75; RESP 18; TEMP 36.6; O2SAT 99
--- NOTE | 2020-04-27 10:37 | W.PM.DS.N ---
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 She was admitted voluntarily last evening for suicidal ideation. She was thinking about taking all of her cymbalta. She is followed by a Psychiatrist at the [facility]. She reported on admission that when the Viibryd was increased from 20 mg to 40 mg, she began to feel awful. The admitting provider, Dr. Galeas placed a call to her Psychiatrist, Dr. Aviles and left a message. The initial plan was for her to transfer to [place] once she was accepted. However, this morning she reports feeling much better. She currently denies suicidal ideation. She has met with Lesvia from [facility] and a safety plan has been created. She is scheduled to see a provider at [facility] on Wednesday (2 days). She will be staying with her father who will control her medications. She will not have personal access to her medications. Lory is discharged with a safety plan in place with [facility]. She finds the lorazepam helpful for her anxiety. Given that she has follow up in 2 days and her father will be controlling her medications. I will provide her with a small prescription of lorazepam for PRN use at home. Her mental health provider will need to review and adjust medications as needed on Wednesday. Home Meds and New Rx's Prescriptions: New lorazepam 1 mg tablet 0.5 - 1 mg PO TID PRNQty: 6 RF: 0 Continued metoprolol succinate [Toprol XL] 50 mg Tablet Extended Release 24 Hr 100 mg PO BID RF: 0 rosuvastatin [Crestor] 5 mg Tablet 5 mg PO HS RF: 0 esomeprazole magnesium [Nexium] 40 MG capsule,delayed release(DR/EC) 40 mg PO DAILY RF: 0 metformin 500 mg tablet 500 mg PO .2 am 1 hs RF: 0 lithium carbonate 300 mg tablet 300 mg PO DAILY RF: 0 nicotine 14 mg/24 hr Patch 24 Hour 1 patch TRANSDERMAL DAILY RF: 0 nicotine (polacrilex) 2 mg Gum 2 mg BUCCAL Q1H PRNRF: 0 torsemide 10 mg tablet 10 mg PO DAILY RF: 0 trazodone 150 mg tablet 300 mg PO QHS RF: 0 spironolactone 50 mg tablet 50 mg PO DAILY RF: 0 Viibryd 20 mg tablet 20 mg PO DAILY@0830 RF: 0 acetaminophen [Acetaminophen Extra Strength] 500 MG tablet 1,000 mg PO TID PRN PRNQty: 180 RF: 0 Discontinued lorazepam 0.5 mg tablet 0.5 mg PO DAILY PRNRF: 0 lorazepam 1 mg tablet 1 mg PO QHS PRNRF: 0 No Action (DME) OneTouch Verio test strips Strip MISCELLANEOUS RF: 0 (DME) lancets [OneTouch Delica Plus Lancet] 30 gauge Misc MISCELLANEOUS RF: 0 Discharge Instructions Instructions: Depression (DC), Generalized Anxiety Disorder (ED), Suicide Prevention (DC) Additional Instructions: You have been prescribed a small amount of lorazepam to help get you through until you see your psychiatric provider on Wednesday. Follow safety plan made with [facility]. If you have further suicidal thoughts, return to the ED. Take care! Stand Alone Forms: Nursing Discharge Form Activity:: Activity as Tolerated Equipment/Supplies:: No Equipment Needed Diet:: Carb Counting Discharge Orders Discharge Orders: Discharge Order (Routine); Ordered 04/27/20 Ordered By: Kmi Carmen DS: Summary Time Spent with Patient providing and/or coordinating discharge services: Greater than 30 minutes Status at Discharge Functional status at discharge: independent ambulation Overall status at discharge: patient is progressing back to baseline Mental Status: mental status grossly normal Speech and Movement: speech and movement normal Mood: congruent mood Affect: normal affect Exam Narrative Exam Narrative: General: 54 year old female, appears stated age, well-appearing, well nourished. Awake, alert and oriented. Pleasant and talkative. Psych: appears calm and appropriate, demonstrates a clear thought pattern. HEENT: normocephalic, atraumatic, pupils equal and round, makes good eye contact, mucous membranes moist. Neck: supple. Respiratory: respirations appear even and unlabored. Extremities: standing up, gait appears steady, moves all 4 extremities freely. Derm: herpes zoster not assessed. Psych Mental Status: mental status grossly normal Speech and Movement: speech and movement normal Mood: congruent mood Affect: normal affect DS: Data Vitals/I&O Vitals and I&O: Vital Signs Temperature 36.6 C 04/27/20 09:00 Temperature Source Tympanic 04/27/20 09:00 Pulse 75 04/27/20 09:00 Pulse Rhythm Regular 04/27/20 04:15 Respiratory Rate 18 04/27/20 09:00 Respiratory Effort Non-Labored 04/27/20 04:15 Respiratory Depth Normal 04/27/20 04:15 Respiratory Pattern Normal 04/27/20 04:15 Blood Pressure 125/89 04/27/20 09:00 Blood Pressure Position Sitting 04/26/20 11:20 Pulse Oximetry 99 04/27/20 09:00 Oxygen Delivery Method Room Air 04/27/20 09:00 Oxygen Flow Rate 0 04/27/20 09:00 Pain Level 0 04/27/20 09:00 Comment 04/26/20 11:20 Intake & Output 04/26/20 04/26/20 04/27/20 11:59 23:59 11:59 Intake Total 750 / 750 Balance 750 / 750 Weight 100.698 kg Intake: Oral 750 / 750 Other: Urine Color Yellow Urine Appearance Clear Clear Comment Unable to measure or check Voiding Methods Toilet Toilet Data Completed and Pending Labs on day of discharge: Labs from last 24 hours 04/27/20 04/27/20 04/26/20 06:30 06:30 14:10 WBC 12.06 H RBC 3.99 Hgb 11.8 Hct 34.9 L MCV 87.5 MCH 29.6 MCHC 33.8 RDW 13.2 Plt Count 251 MPV 12.5 H Immature Gran % 0.4 Neutrophils % 62.2 Lymphocytes % 24.4 Monocytes % 7.2 Eosinophils % 5.1 Basophils % 0.7 Nucleated RBC % 0 Absolute Neutrophils 7.50 H Absolute Lymphocytes 2.94 Absolute Monocytes 0.87 H Absolute Eosinophils 0.62 Absolute Basophils 0.08 Sodium 137 Potassium 3.4 L Chloride 101 Carbon Dioxide 22.7 Anion Gap 13.3 H BUN 10 Creatinine 0.9 Estimated GFR/1.73 m2 >= 60.00 Glucose 223 H Calcium 9.3 Magnesium 1.9 Total Bilirubin AST ALT Alkaline Phosphatase Total Protein Albumin Lipase TSH Urine Color Urine Clarity Urine pH Ur Specific [place] Urine Protein Urine Ketones Urine Blood Urine Nitrite Urine Bilirubin Urine Urobilinogen Ur Leukocyte Esterase Urine RBC Urine WBC Ur Epithelial Cells Urine Crystals Urine Bacteria Urine Casts Urine Mucus Urine Other Ur Culture Indicated? Urine Glucose Urine Opiates Screen Urine Methadone Screen Ur Barbiturates Screen Ur Tricyclics Screen Ur Amphetamines Screen U Benzodiazepines Scrn [place] Urine Cocaine Screen Ur THC Screen Ethyl Alcohol COVID-19 Source Nasopharyx SARS-CoV-2 (PCR) Negative 04/26/20 04/26/20 04/26/20 11:55 11:55 11:55 WBC 15.84 H RBC 4.52 Hgb 13.3 Hct 39.6 MCV 87.6 MCH 29.4 MCHC 33.6 RDW 13.2 Plt Count 308 MPV 12.0 H Immature Gran % 0.3 Neutrophils % 67.5 Lymphocytes % 22.4 Monocytes % 6.2 Eosinophils % 3.0 Basophils % 0.6 Nucleated RBC % 0 Absolute Neutrophils 10.69 H Absolute Lymphocytes 3.55 H Absolute Monocytes 0.98 H Absolute Eosinophils 0.48 Absolute Basophils 0.10 Sodium Potassium Chloride Carbon Dioxide Anion Gap BUN Creatinine Estimated GFR/1.73 m2 Glucose Calcium Magnesium Total Bilirubin AST ALT Alkaline Phosphatase Total Protein Albumin Lipase TSH Urine Color Urine Clarity Urine pH Ur Specific [place] Urine Protein Urine Ketones Urine Blood Urine Nitrite Urine Bilirubin Urine Urobilinogen Ur Leukocyte Esterase Urine RBC Urine WBC Ur Epithelial Cells Urine Crystals Urine Bacteria Urine Casts Urine Mucus Urine Other Ur Culture Indicated? Urine Glucose Urine Opiates Screen Urine Methadone Screen Ur Barbiturates Screen Ur Tricyclics Screen Ur Amphetamines Screen U Benzodiazepines Scrn [place] 0.3 L Urine Cocaine Screen Ur THC Screen Ethyl Alcohol < 3.0 COVID-19 Source SARS-CoV-2 (PCR) 04/26/20 04/26/20 04/26/20 11:55 11:35 11:35 WBC RBC Hgb Hct MCV MCH MCHC RDW Plt Count MPV Immature Gran % Neutrophils % Lymphocytes % Monocytes % Eosinophils % Basophils % Nucleated RBC % Absolute Neutrophils Absolute Lymphocytes Absolute Monocytes Absolute Eosinophils Absolute Basophils Sodium 139 Potassium 3.2 L Chloride 101 Carbon Dioxide 22.5 Anion Gap 15.5 H BUN 9 Creatinine 0.9 Estimated GFR/1.73 m2 >= 60.00 Glucose 163 H Calcium 10.0 Magnesium Total Bilirubin 0.5 AST 53 H ALT 53 Alkaline Phosphatase 57 Total Protein 8.4 H Albumin 4.3 Lipase 117 TSH 2.04 Urine Color Yellow Urine Clarity Clear Urine pH 6.5 Ur Specific [place] >= 1.030 H Urine Protein >=300 H Urine Ketones Negative Urine Blood Trace-intact H Urine Nitrite Negative Urine Bilirubin Negative Urine Urobilinogen 0.2 Ur Leukocyte Esterase Negative Urine RBC 0-2 Urine WBC 5-10 Ur Epithelial Cells Many Urine Crystals Negative Urine Bacteria Few Urine Casts Negative Urine Mucus Moderate Urine Other Ur Culture Indicated? No/sq. contamination Urine Glucose Negative Urine Opiates Screen Negative Urine Methadone Screen Negative Ur Barbiturates Screen Negative Ur Tricyclics Screen Negative Ur Amphetamines Screen Negative U Benzodiazepines Scrn Negative [place] Urine Cocaine Screen Negative Ur THC Screen Positive A Ethyl Alcohol COVID-19 Source SARS-CoV-2 (PCR) [facility] Medical History Abnormal movement Anxiety disorder Arthritis of right acromioclavicular joint (07/15/16) Asthma, mild intermittent BMI 40.0-44.9, adult Calcific tendinitis of both shoulders (05/11/16) Calcific tendinitis of shoulder Cocaine abuse, in remission Depression Diabetes Diabetic neuropathy Diffuse pain Dysphonia (03/26/14) Elevated liver enzymes GERD (gastroesophageal reflux disease) (03/26/14) GERD with apnea (03/26/14) HSV infection HTN (hypertension) Hyperlipidemia Lumbago with sciatica Medication overuse headache Migraine headache without aura Nonalcoholic steatohepatitis REX (obstructive sleep apnea) Palpitations PTSD (post-traumatic stress disorder) Sacroiliac joint dysfunction of left side Seasonal mood disorder Sensorineural hearing loss (SNHL) Sensorineural hearing loss, asymmetrical (03/26/14) Subacromial impingement Tension headache Tobacco abuse Vocal cord polyp Surgical History Appendectomy bunion correction via Cheilectomy Cholecystectomy History of surgical procedure foraminotomy Hysterectomy, Laproscopic Lithotripsy x3 Nerve Decompression Lumbar spine S/P shoulder surgery Family History Father Hypertension Brother Hypertension Other Diabetes Social History Smoking/Tobacco Use Status: Former Tobacco Use Quit Date: 02/27/20 Smoking risk assessment performed?: Yes Alcohol Intake: former Year quit: 2011 Drug use: Current Sobriety Substance use type: former substance user, marijuana and crack/cocaine Details: occasional marijuana. Currently using patch and gum for nicotine replacement- quit february 2020 Household members: family Housing: house Number of Children: 0 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; former dental hygienist Pets and animals: No What is your relationship status?: never Panel score (0-1 are the most socially isolated patients): 0 What type of physical activity do you participate in: none and independent ambulation Seatbelt use: always Do you feel safe at home: Yes Do you feel safe in your relationship?: Yes
--- NOTE | 2020-04-27 10:39 | CMDISCH_ITS ---
- If Service Date Differs Date of service: 04/27/20 Time of Service: 10:39 LACE Index Scoring Tool - Questions: Length of Stay (in days): 1 Acuity (Admit via E.D.?): Yes E.D. Visits: 2 - Answers: Total Score: 6 Risk of Readmission: Low Risk Care Management Discharge Reason for Hospitalization: Suicidal ideation. Discharge Plan: Lory was assessed by Lesvia of [facility] via zoom this morning and was able to contract for safety. She is currently denying suicidal or homicidal ideation and is requesting to go home. A safety plan has been created as follows: Lory will follow up with her psych provider, Nikole Delaney, as scheduled on Wednesday, will check in by phone as agreed with [facility] crisis services over the weekend, and her father, with whom Lory lives, has agreed to safeguard her medication and to dispense it as prescribed. Lory is being driven home by family via private vehicle. Patient/Family Education Needs: Nursing staff will review discharge instructions and follow up plan of care with Lory. - MH Services (Omit if N/A) Current MH Services: [facility]
[2020-04-27] MEDS: Ibuprofen 600 MG TAB PO (11:31)
[2020-04-27] MEDS: Potassium Chloride 20 MEQ TABCR 40 MEQ PO (11:31)
== END 2020-04-27 12:25 | disposition home or self-care (01) ==
LOC: ER 14:57 → MS 15:01
PROVIDERS: Admitting Provider Internal Medicine; Emergency Provider Physician Assistant; PCP Internal Medicine; Visit Provider Internal Medicine
DX: F32.9 Major depressive disorder, single episode, unspecified (principal); F41.9 Anxiety disorder, unspecified; R45.851 Suicidal ideations; Z79.899 Other long term (current) drug therapy; D72.829 Elevated white blood cell count, unspecified; G47.33 Obstructive sleep apnea (adult) (pediatric); E83.42 Hypomagnesemia; F17.210 Nicotine dependence, cigarettes, uncomplicated; I10 Essential (primary) hypertension; Z79.84 Long term (current) use of oral hypoglycemic drugs; B02.9 Zoster without complications; J45.20 Mild intermittent asthma, uncomplicated; E11.40 Type 2 diabetes mellitus with diabetic neuropathy, unspecified; K21.9 Gastro-esophageal reflux disease without esophagitis; E78.5 Hyperlipidemia, unspecified; M54.40 Lumbago with sciatica, unspecified side; K76.0 Fatty (change of) liver, not elsewhere classified
CPT/HCPCS: 36415; 80048; 80053; 80307; 81025; 83690; 99219; 99285; 99316; J1650; 80178; 80320; 81003; 81015; 83735; 84443; 85025; G0378; J3490

== ENCOUNTER 2020-07-03 15:32 | Outpatient (REF) | payer MEDICAID, SELFPAY ==
[2020-07-03 16:12] LABS: Bilirubin Negative (Negative); Blood Negative (Negative); Clarity Clear (Clear); Glucose Negative (Negative); Ketones Negative (Negative); Leukocyte Esterase Small (Negative); Nitrite Negative (Negative); Specific Gravity 1.015 (1.005-1.025); Urobilinogen 0.2 EU/dL (Up TO 0.2)
[2020-07-03 16:22] LABS: Bacteria Negative HPF (Negative); C & S Indicated? Yes; Casts Negative LPF (Negative); Crystals Negative HPF (Negative); Epithelial Cells Moderate HPF (Negative); Mucus Negative (Negative); Other Cells Negative (Negative); RBC 0-2 HPF (0-2)
== END 2020-07-03 15:33 | disposition home or self-care (01) ==
LOC: NCHCN 15:32
PROVIDERS: PCP Internal Medicine; Visit Provider Nurse Practitioner Family
DX: L29.2 Pruritus vulvae (principal); R82.998 Other abnormal findings in urine
CPT/HCPCS: 81003; 81015; 87086; 87480; 87510; 87660

== ENCOUNTER 2020-09-10 16:26 | Outpatient (REF) | payer MEDICAID, SELFPAY ==
[2020-09-10 19:28] LABS: Lithium 1.3 mmol/l (0.6-1.2)
== END 2020-09-10 16:27 | disposition home or self-care (01) ==
LOC: LBN 16:26
PROVIDERS: PCP Internal Medicine; Visit Provider Nurse Practitioner Psychiatric/Mental Health
DX: F33.1 Major depressive disorder, recurrent, moderate (principal); Z79.899 Other long term (current) drug therapy; Z51.81 Encounter for therapeutic drug level monitoring
CPT/HCPCS: 80178

== ENCOUNTER 2020-10-08 17:07 | Outpatient (REF) | payer MEDICAID, SELFPAY ==
[2020-10-08 19:55] LABS: Anion Gap 10.5 mmol/L (3-11); BUN 10 mg/dL (7-18); CO2 25.5 mmol/L (21.0-32.0); CREATININE 1.1 mg/dL (0.55-1.02); Calcium 9.7 mg/dL (8.5-10.1); Chloride 105 mmol/L (98-107); Estimated GFR 51.96 (mL/min/1.73m2); Glucose 176 mg/dL (74-106); Potassium 3.6 mmol/L (3.5-5.1); Sodium 141 mmol/L (136-145)
[2020-10-09 21:30] LABS: Lithium (UVM) 0.9 mEq/L (See Note)
== END 2020-10-08 17:08 | disposition home or self-care (01) ==
LOC: NCHCN 17:07
PROVIDERS: PCP Internal Medicine; Visit Provider Nurse Practitioner Family
DX: Z79.899 Other long term (current) drug therapy; F33.1 Major depressive disorder, recurrent, moderate
CPT/HCPCS: 80048; 80178

== ENCOUNTER 2020-11-04 15:02 | Outpatient (REF) | payer MEDICAID, SELFPAY ==
[2020-11-04 22:14] LABS: Lithium 0.8 mmol/l (0.6-1.2)
[2020-11-04 22:26] LABS: Anion Gap 8.9 mmol/L (3-11); BUN 10 mg/dL (7-18); CO2 29.1 mmol/L (21.0-32.0); CREATININE 1.1 mg/dL (0.55-1.02); Calcium 10.4 mg/dL (8.5-10.1); Chloride 104 mmol/L (98-107); Estimated GFR 51.96 (mL/min/1.73m2); Glucose 116 mg/dL (74-106); Potassium 3.8 mmol/L (3.5-5.1); Sodium 142 mmol/L (136-145); TSH 2.03 uIU/mL (0.36-3.74)
== END 2020-11-04 15:03 | disposition home or self-care (01) ==
LOC: NCHCN 15:02
PROVIDERS: PCP Internal Medicine; Referring Provider Internal Medicine; Visit Provider Internal Medicine
DX: F31.30 Bipolar disorder, current episode depressed, mild or moderate severity, unspecified (principal); E11.9 Type 2 diabetes mellitus without complications; I10 Essential (primary) hypertension
CPT/HCPCS: 80048; 80178; 84443

== ENCOUNTER 2021-02-04 11:16 | Outpatient (CLI) | payer MEDICAID, SELFPAY ==
--- NOTE | 2021-02-04 10:45 | DI.RAD_ITS ---
Exam(s) XR SHOULDER LT COMPLETE 2+V EXAM: XR SHOULDER LT COMPLETE 2+V CLINICAL HISTORY: left shoulder pain. TECHNIQUE: 2D digital imaging was performed of the left shoulder. Two images were obtained. AP and axillary views were obtained. COMPARISON: CR SHOULDER LT MIN 2V from 12/08/2014 CR SHOULDER LT MIN 2V from 12/08/2014 FINDINGS: BONES: No acute fracture is present. No bony destructive lesion is seen. JOINTS: No dislocation present. Mild degenerative changes are seen at the acromioclavicular joint. SOFT TISSUE: Calcifications are seen adjacent to the greater tuberosity consistent with calcific tend initis. Tiny calcifications are seen at the inferior aspect of the glenoid. IMPRESSION: Degenerative changes of the left shoulder. DATA REPOSITORY: RADIATION DOSE DELIVERED:
--- NOTE | 2021-02-04 10:45 | DI.RAD_ITS ---
Exam(s) XR SHOULDER RT COMPLETE 2+V EXAM: XR SHOULDER RT COMPLETE 2+V CLINICAL HISTORY: right shoulder pain. TECHNIQUE: 2D digital imaging was performed of the right shoulder. Three images were obtained. AP and axillary views were obtained. COMPARISON: MR MRI R UPPER JOINT WO CONT from 06/25/2016 MR MRI R UPPER JOINT WO CONT from 06/25/2016 FINDINGS: BONES: No acute fracture is present. No bony destructive lesion is seen. JOINTS: No dislocation present. SOFT TISSUE: There is a large calcification in the soft tissues adjacent to the humeral head likely r eflecting calcific tendinitis. IMPRESSION: Calcific tendinitis. DATA REPOSITORY: RADIATION DOSE DELIVERED:
== END 2021-02-04 11:17 | disposition home or self-care (01) ==
LOC: DIORS 11:16
PROVIDERS: PCP Internal Medicine; Referring Provider Internal Medicine; Visit Provider Student in an Organized Health Care Education/Training Program
DX: M25.511 Pain in right shoulder (principal); M25.512 Pain in left shoulder; M75.31 Calcific tendinitis of right shoulder; M85.812 Other specified disorders of bone density and structure, left shoulder
CPT/HCPCS: 73030

== ENCOUNTER 2021-02-20 15:13 | Outpatient (REF) | payer MEDICAID, SELFPAY ==
[2021-02-22 12:01] LABS: COVID-19 RT-PCR UVMMC Result Negative (Negative)
== END 2021-02-20 15:14 | disposition home or self-care (01) ==
LOC: NCHCN 15:13
PROVIDERS: PCP Internal Medicine; Visit Provider Nurse Practitioner Family
DX: Z20.822 Contact with and (suspected) exposure to COVID-19 (principal); R52 Pain, unspecified
CPT/HCPCS: U0003

== ENCOUNTER 2021-03-03 17:21 | Outpatient (REF) | payer MEDICAID, SELFPAY ==
[2021-03-03 21:13] LABS: COMMENT (LAB VIEW ONLY) 104.13 mg/dL; Microalb ug/mg Crea 52.1 ug/mg Cr
== END 2021-03-03 17:22 | disposition home or self-care (01) ==
LOC: NCHCN 17:21
PROVIDERS: PCP Internal Medicine; Visit Provider Internal Medicine
DX: E11.9 Type 2 diabetes mellitus without complications (principal)
CPT/HCPCS: 82043; 82570

== ENCOUNTER 2021-06-05 20:55 | Outpatient (REF) | payer MEDICAID, SELFPAY ==
[2021-06-05 21:29] LABS: HCT 42.3 % (36.0-46.0); HGB 13.9 g/dL (11.2-15.7); MCHC 32.9 % (32.0-36.0); MCV 94.2 fL (80-95); MPV 12.6 fL (8.0-11.0); Platelet Count 258 10^3/uL (130-400); RBC 4.49 10^6/uL (3.93-5.22); RDW 12.4 % (11.7-14.6); RDW-SD 42.5 fL; WBC 16.42 10^3/uL (4.4-10.8)
[2021-06-05 21:39] LABS: ALT 39 U/L (14-59); AST 35 U/L (15-37); Albumin 4.3 g/dL (3.4-5.0); Alkaline Phosphatase 60 U/L (46-116); BUN 15 mg/dL (7-18); Bilirubin, Total 0.4 mg/dL (0.2-1.0); Calcium 9.7 mg/dL (8.5-10.1); Calculated LDL 55 mg/dL (<100); Chloride 101 mmol/L (98-107); Cholesterol 124 mg/dL (<200); Glucose 126 mg/dL (74-106); HDL Cholesterol 32 mg/dL (40-60); Potassium 3.9 mmol/L (3.5-5.1); Sodium 138 mmol/L (136-145); Total Protein 7.5 g/dL (6.4-8.2); Triglyceride 186 mg/dL (<150)
== END 2021-06-05 20:56 | disposition home or self-care (01) ==
LOC: NCHCN 20:55
PROVIDERS: PCP Internal Medicine; Visit Provider Internal Medicine
DX: E11.9 Type 2 diabetes mellitus without complications (principal); K58.9 Irritable bowel syndrome, unspecified; R15.9 Full incontinence of feces; F32.89 Other specified depressive episodes; Z51.81 Encounter for therapeutic drug level monitoring
CPT/HCPCS: 80053; 80061; 85027; 80178

== ENCOUNTER 2021-07-22 15:56 | Outpatient (REF) | payer MEDICAID, SELFPAY | END 2021-07-22 15:57 | disposition home or self-care (01) | LOC: NCHCN 15:56 | PROVIDERS: PCP Internal Medicine; Visit Provider Nurse Practitioner Family | DX: L29.8 Other pruritus (principal); N89.8 Other specified noninflammatory disorders of vagina | CPT/HCPCS: 87480; 87510; 87660 ==

== ENCOUNTER 2021-08-27 16:20 | Outpatient (REF) | payer MEDICAID, SELFPAY | END 2021-08-27 16:21 | disposition home or self-care (01) | LOC: NCHCN 16:20 | PROVIDERS: PCP Internal Medicine; Visit Provider Nurse Practitioner Family | DX: N89.8 Other specified noninflammatory disorders of vagina (principal); L72.8 Other follicular cysts of the skin and subcutaneous tissue | CPT/HCPCS: 87480; 87510; 87660 ==

== ENCOUNTER 2021-09-22 15:00 | Outpatient (REF) | payer MEDICAID, SELFPAY ==
[2021-09-22 19:43] LABS: Lithium 0.9 mmol/l (0.6-1.2)
[2021-09-22 19:58] LABS: Anion Gap 7.5 mmol/L (3-11); BUN 11 mg/dL (7-18); CO2 25.5 mmol/L (21.0-32.0); Calcium 9.5 mg/dL (8.5-10.1); Chloride 103 mmol/L (98-107); Estimated GFR 57.78 (mL/min/1.73m2); Glucose 167 mg/dL (74-106); Potassium 4.1 mmol/L (3.5-5.1); Sodium 136 mmol/L (136-145); TSH (W/Ref FT4) 3.27 uIU/mL (0.36-3.74)
[2021-09-22 20:13] LABS: Vitamin D 25 Total 24.8 ng/mL (30-100)
== END 2021-09-22 15:01 | disposition home or self-care (01) ==
LOC: NCHCN 15:00
PROVIDERS: PCP Internal Medicine; Visit Provider Internal Medicine
DX: E11.9 Type 2 diabetes mellitus without complications (principal); E87.6 Hypokalemia; F31.30 Bipolar disorder, current episode depressed, mild or moderate severity, unspecified; Z79.899 Other long term (current) drug therapy; Z51.81 Encounter for therapeutic drug level monitoring
CPT/HCPCS: 80048; 82306; 80178; 83036; 84443

== ENCOUNTER 2022-02-03 13:49 | Outpatient (REF) | payer MEDICARE, MEDICAID, SELFPAY ==
[2022-02-03 18:41] LABS: HCT 42.1 % (36.0-46.0); MCH 31.5 pg (27.0-33.0); MCHC 33.3 % (32.0-36.0); MCV 95 fL (80-95); MPV 12.2 fL (8.0-11.0); Platelet Count 248 10^3/uL (130-400); RBC 4.45 10^6/uL (3.93-5.22); RDW-SD 41.7 fL; WBC 13.54 10^3/uL (4.4-10.8)
[2022-02-03 18:55] LABS: Lithium 0.9 mmol/l (0.6-1.2)
[2022-02-03 19:07] LABS: TSH 0.91 uIU/mL (0.36-3.74)
[2022-02-03 19:22] LABS: Vitamin D 25 Total 30.1 ng/mL (30-100)
== END 2022-02-03 13:50 | disposition home or self-care (01) ==
LOC: NCHCN 13:49
PROVIDERS: PCP Internal Medicine; Visit Provider Internal Medicine
DX: K75.81 Nonalcoholic steatohepatitis (NASH) (principal); F31.30 Bipolar disorder, current episode depressed, mild or moderate severity, unspecified; Z79.899 Other long term (current) drug therapy; Z51.81 Encounter for therapeutic drug level monitoring
CPT/HCPCS: 82306; 85027; 80178; 84443

== ENCOUNTER 2022-02-18 10:19 | Outpatient (REF) | payer MEDICARE, MEDICAID, SELFPAY ==
[2022-02-18 20:26] LABS: Anion Gap 10.1 mmol/L (3-11); BUN 8 mg/dL (7-18); CO2 23.9 mmol/L (21.0-32.0); CREATININE 1.1 mg/dL (0.55-1.02); Calcium 9.5 mg/dL (8.5-10.1); Chloride 103 mmol/L (98-107); Estimated GFR 59.71 (mL/min/1.73m2); Glucose 192 mg/dL (74-106); Potassium 3.8 mmol/L (3.5-5.1); Sodium 137 mmol/L (136-145)
== END 2022-02-18 10:20 | disposition home or self-care (01) ==
LOC: NCHCN 10:19
PROVIDERS: PCP Internal Medicine; Visit Provider Internal Medicine
DX: I10 Essential (primary) hypertension (principal)
CPT/HCPCS: 80048

== ENCOUNTER 2022-05-20 11:28 | Outpatient (REF) | payer MEDICARE, MEDICAID, SELFPAY ==
[2022-05-20 20:10] LABS: Lithium 1.3 mmol/l (0.6-1.2)
[2022-05-20 20:23] LABS: Anion Gap 9.3 mmol/L (3-11); BUN 11 mg/dL (7-18); CO2 27.7 mmol/L (21.0-32.0); CREATININE 1.1 mg/dL (0.55-1.02); Calcium 10.2 mg/dL (8.5-10.1); Chloride 102 mmol/L (98-107); Estimated GFR 59.71 (mL/min/1.73m2); FREE T4 0.89 ng/dL (0.76-1.46); Glucose 170 mg/dL (74-106); Potassium 3.7 mmol/L (3.5-5.1); Sodium 139 mmol/L (136-145); TSH 2.56 uIU/mL (0.36-3.74)
== END 2022-05-20 11:29 | disposition home or self-care (01) ==
LOC: NCHCN 11:28
PROVIDERS: PCP Internal Medicine; Visit Provider Internal Medicine
DX: I10 Essential (primary) hypertension (principal); F31.30 Bipolar disorder, current episode depressed, mild or moderate severity, unspecified; R42 Dizziness and giddiness; E66.8 Other obesity; Z68.41 Body mass index [BMI] 40.0-44.9, adult; Z51.81 Encounter for therapeutic drug level monitoring; Z79.899 Other long term (current) drug therapy
CPT/HCPCS: 80048; 82306; 80178; 84439; 84443

== ENCOUNTER 2022-05-28 16:13 | Outpatient (REF) | payer MEDICARE, MEDICAID, SELFPAY ==
[2022-05-28 19:21] LABS: Lithium 0.9 mmol/l (0.6-1.2)
[2022-05-28 19:23] LABS: Uric Acid 9.4 mg/dL (2.6-6.0)
== END 2022-05-28 16:14 | disposition home or self-care (01) ==
LOC: NCHCN 16:13
PROVIDERS: PCP Internal Medicine; Visit Provider Internal Medicine
DX: F31.30 Bipolar disorder, current episode depressed, mild or moderate severity, unspecified (principal); M79.672 Pain in left foot; Z51.81 Encounter for therapeutic drug level monitoring; Z79.899 Other long term (current) drug therapy; E79.0 Hyperuricemia without signs of inflammatory arthritis and tophaceous disease
CPT/HCPCS: 80178; 84550; 86140

== ENCOUNTER 2022-07-01 16:00 | Outpatient (REF) | payer MEDICARE, MEDICAID, SELFPAY ==
[2022-07-01 19:52] LABS: Abs Immature Grans 0.06 10^3/uL (0.0-0.06); Absolute Eosinophil Count 0.55 10^3/uL (0.0-0.7); Absolute Monocyte Count 0.92 10^3/uL (0.1-0.8); Basophils % 1.1; Eosinophils % 3.6; HCT 44.4 % (36.0-46.0); HGB 14.8 g/dL (11.2-15.7); Immature Grans % 0.4; Lymphocytes % 23.8; MCH 31.6 pg (27.0-33.0); MCHC 33.3 % (32.0-36.0); MCV 95 fL (80-95); MPV 12.1 fL (8.0-11.0); Monocytes % 6.1; Platelet Count 326 10^3/uL (130-400); RBC 4.68 10^6/uL (3.93-5.22); RDW 12.7 % (11.7-14.6); RDW-SD 43.7 fL; WBC 15.14 10^3/uL (4.4-10.8)
[2022-07-01 19:53] LABS: Absolute Basophil Count 0.17 10^3/uL (0.0-0.2); Absolute Neutrophil Count 9.84 10^3/uL (1.2-6.7)
== END 2022-07-01 16:01 | disposition home or self-care (01) ==
LOC: NCHCN 16:00
PROVIDERS: PCP Internal Medicine; Visit Provider Physician Assistant
DX: M10.9 Gout, unspecified (principal)
CPT/HCPCS: 85025

== ENCOUNTER 2022-08-11 10:40 | Outpatient (CLI) | payer MEDICARE, MEDICAID, SELFPAY ==
--- NOTE | 2022-08-11 10:45 | DI.RAD_ITS ---
Exam(s) XR SHOULDER RT COMPLETE 2+V EXAM: XR SHOULDER RT COMPLETE 2+V CLINICAL HISTORY: RIGHT SHOULDER PAIN. TECHNIQUE: 2D digital imaging was performed of the right shoulder. Two images were obtained. AP an d Y views were obtained. COMPARISON: CR XR SHOULDER RT COMPLETE 2+V from 02/04/2021 FINDINGS: BONES: No acute fracture is present. No bony destructive lesion is seen. There is an old right 4th ri b fracture. JOINTS: No dislocation present. The glenohumeral and acromioclavicular joints are well maintained. SOFT TISSUE: Coarse calcification is again seen in the soft tissues adjacent to the humeral head sugg esting calcific tendinitis. IMPRESSION: Calcific tendinitis. DATA REPOSITORY: RADIATION DOSE DELIVERED:
== END 2022-08-11 10:41 | disposition home or self-care (01) ==
PROVIDERS: PCP Internal Medicine; Referring Provider Internal Medicine; Visit Provider Student in an Organized Health Care Education/Training Program
DX: M25.511 Pain in right shoulder; M65.221 Calcific tendinitis, right upper arm
CPT/HCPCS: 73030

== ENCOUNTER 2022-10-23 18:55 | Outpatient (REF) | payer MEDICARE, SELFPAY ==
[2022-10-23 19:51] LABS: Lithium 0.4 mmol/l (0.6-1.2)
[2022-10-23 20:07] LABS: Anion Gap 7.7 mmol/L (3-11); BUN 10 mg/dL (7-18); CO2 28.3 mmol/L (21.0-32.0); CREATININE 0.8 mg/dL (0.55-1.02); Calcium 9.3 mg/dL (8.5-10.1); Chloride 108 mmol/L (98-107); Estimated GFR 86.96 (mL/min/1.73m2); Glucose 85 mg/dL (74-106); HCG Quant, Pregnancy 6 mIU/mL (1-3); Potassium 3.8 mmol/L (3.5-5.1); Sodium 144 mmol/L (136-145); TSH 1.82 uIU/mL (0.36-3.74)
[2022-10-23 21:11] LABS: FREE T4 0.84 ng/dL (0.76-1.46)
== END 2022-10-23 18:56 | disposition home or self-care (01) ==
LOC: NCHCN 18:55
PROVIDERS: PCP Internal Medicine; Visit Provider Internal Medicine
DX: R41.0 Disorientation, unspecified (principal); Z51.81 Encounter for therapeutic drug level monitoring; Z79.899 Other long term (current) drug therapy; R87.1 Abnormal level of hormones in specimens from female genital organs
CPT/HCPCS: 80048; 80178; 84439; 84443; 84702

== ENCOUNTER 2022-11-11 10:13 | Outpatient (REF) | payer MEDICARE, SELFPAY ==
[2022-11-11 20:52] LABS: Lithium 0.5 mmol/l (0.6-1.2)
[2022-11-11 21:04] LABS: Anion Gap 8.4 mmol/L (3-11); BUN 11 mg/dL (7-18); CO2 26.6 mmol/L (21.0-32.0); CREATININE 0.9 mg/dL (0.55-1.02); Calcium 10.2 mg/dL (8.5-10.1); Chloride 102 mmol/L (98-107); Glucose 145 mg/dL (74-106); Potassium 3.8 mmol/L (3.5-5.1); Sodium 137 mmol/L (136-145); TSH (W/Ref FT4) 2.62 uIU/mL (0.36-3.74)
== END 2022-11-11 10:14 | disposition home or self-care (01) ==
LOC: NCHCN 10:13
PROVIDERS: PCP Internal Medicine; Visit Provider Internal Medicine
DX: I10 Essential (primary) hypertension (principal); F31.30 Bipolar disorder, current episode depressed, mild or moderate severity, unspecified; R41.0 Disorientation, unspecified; Z79.899 Other long term (current) drug therapy; Z51.81 Encounter for therapeutic drug level monitoring
CPT/HCPCS: 80048; 80178; 84443

== ENCOUNTER 2022-11-26 10:43 | Outpatient (REF) | payer OTHER, SELFPAY ==
[2022-11-26 19:32] LABS: Lithium 0.5 mmol/l (0.6-1.2)
[2022-11-26 19:54] LABS: BUN 9 mg/dL (7-18); CREATININE 0.9 mg/dL (0.55-1.02); Calcium 9.8 mg/dL (8.5-10.1); Chloride 105 mmol/L (98-107); Glucose 138 mg/dL (74-106); Potassium 3.7 mmol/L (3.5-5.1); Sodium 138 mmol/L (136-145)
== END 2022-11-26 10:44 | disposition home or self-care (01) ==
LOC: NCHCN 10:43
PROVIDERS: PCP Internal Medicine; Visit Provider Internal Medicine
DX: I10 Essential (primary) hypertension (principal); R41.0 Disorientation, unspecified; F31.30 Bipolar disorder, current episode depressed, mild or moderate severity, unspecified
CPT/HCPCS: 80048; 80178

== ENCOUNTER 2022-12-11 18:24 | Outpatient (REF) | payer OTHER, SELFPAY ==
[2022-12-11 18:33] LABS: Potassium 4.2 mmol/L (3.5-5.1)
== END 2022-12-11 18:25 | disposition home or self-care (01) ==
LOC: NCHCN 18:24
PROVIDERS: PCP Internal Medicine; Visit Provider Nurse Practitioner Family
DX: E87.6 Hypokalemia (principal)
CPT/HCPCS: 84132

== ENCOUNTER 2023-01-12 11:58 | Outpatient (CLI) | payer OTHER, SELFPAY ==
--- NOTE | 2023-01-12 11:59 | DI.RAD_ITS ---
Exam(s) XR SHOULDER RT COMPLETE 2+V EXAM: XR SHOULDER RT COMPLETE 2+V CLINICAL HISTORY: calcific tendinitis follow up. TECHNIQUE: 2D digital imaging was performed of the right shoulder. Two images were obtained. Grash ey and Y views were obtained. COMPARISON: CR XR SHOULDER RT COMPLETE 2+V from 08/11/2022 FINDINGS: BONES: No acute fracture is present. No bony destructive lesion is seen. JOINTS: No dislocation present. Glenohumeral joint appears unremarkable. The acromioclavicular joint appears stable. SOFT TISSUE: There are stable soft tissue calcifications adjacent to the humeral head. The visualize d lung galdamez are clear. IMPRESSION: Stable appearance of the right shoulder. DATA REPOSITORY: RADIATION DOSE DELIVERED:
== END 2023-01-12 11:59 | disposition home or self-care (01) ==
LOC: DIORS 11:58
PROVIDERS: PCP Internal Medicine; Visit Provider Physician Assistant
DX: M75.31 Calcific tendinitis of right shoulder (principal)
CPT/HCPCS: 73030

== ENCOUNTER 2023-01-25 19:25 | Outpatient (REF) | payer OTHER, SELFPAY ==
[2023-01-25 20:09] LABS: Lithium 0.6 mmol/l (0.6-1.2)
[2023-01-25 20:22] LABS: Anion Gap 10.2 mmol/L (3-11); BUN 8 mg/dL (7-18); CO2 23.8 mmol/L (21.0-32.0); CREATININE 0.8 mg/dL (0.55-1.02); Calcium 9.9 mg/dL (8.5-10.1); Chloride 105 mmol/L (98-107); Estimated GFR 86.96 (mL/min/1.73m2); Glucose 109 mg/dL (74-106); Sodium 139 mmol/L (136-145); TSH 1.42 uIU/mL (0.36-3.74)
[2023-01-28 10:21] LABS: Beta-HCG, Quant, Tumor Marker 3.8 IU/L
== END 2023-01-25 19:26 | disposition home or self-care (01) ==
LOC: NCHCN 19:25
PROVIDERS: PCP Internal Medicine; Visit Provider Internal Medicine
DX: R89.1 Abnormal level of hormones in specimens from other organs, systems and tissues (principal); E55.9 Vitamin D deficiency, unspecified; F31.89 Other bipolar disorder; Z79.899 Other long term (current) drug therapy; Z51.81 Encounter for therapeutic drug level monitoring
CPT/HCPCS: 80048; 82306; 80178; 84443; 84702

== ENCOUNTER 2023-04-22 09:46 | Day surgery (SDC) | payer MEDICARE, SELFPAY ==
[2023-04-22] VITALS (10 sets, daily range): BP systolic 105–146; BP diastolic 64–97; PULSE 64–76; RESP 13–26; TEMP 36.4–36.7; O2SAT 92–97; BMI 39.1
--- NOTE | 2023-04-22 07:14 | PDOC.DSDIS_ITS ---
Date of service: 04/22/23 Time of Service: 17:00 Discharge Plan Disposition Patient Disposition: Home Condition: Serious Discharge Details Attending Provider: Steven Rico Primary Care Provider: Yehuda Delgadillo Home Meds and New Rx's Prescriptions: New oxycodone 5 mg tablet 5 - 10 mg PO Q4H PRN (Reason: Moderate to severe pain) Qty: 18 0RF Continued (DME) OneTouch Verio test strips Strip MISCELLANEOUS rosuvastatin [Crestor] 5 mg Tablet 5 mg PO HS (DME) lancets [OneTouch Delica Plus Lancet] 30 gauge Misc MISCELLANEOUS metoprolol succinate 50 mg tablet extended release 24 hr 50 mg PO DAILY clonazepam 0.5 mg tablet 1 mg PO QHS Rx Instructions: administer 30 minutes before bedtime allopurinol 300 mg tablet 400 mg PO DAILY cholecalciferol (vitamin D3) 250 mcg (10,000 unit) capsule 500 mcg PO DAILY duloxetine [Cymbalta] 60 mg capsule,delayed release(DR/EC) 60 mg PO DAILY glipizide 5 mg tablet 5 mg PO BID trazodone 150 mg tablet 150 mg PO QHS esomeprazole magnesium [Nexium] 40 mg capsule,delayed release(DR/EC) 20 mg PO DAILY lithium carbonate 300 mg tablet 900 mg PO DAILY Patient Comments: PT STATES CURRENT DOSE IS 300MG Q AM AND 450MG Q PM --TRU GOLDSMITH acetaminophen [Acetaminophen Extra Strength] 500 MG tablet 1,000 mg PO TID PRN PRNQty: 180 0RF nicotine 7 mg/24 hr patch 24 hour 1 patch transdermal Q24H Patient Comments: APPLY 1 PATCH TO CLEAN DRY SKIN DAILY. Remove old patch. nicotine (polacrilex) 2 mg lozenge Patient Comments: Apply 1 lozenge in mouth every four hours as needed every 2-4 hours as needed for cravings Discharge Instructions Additional Instructions: Surgery: Right shoulder arthroscopy with extensive debridement (including removal of calcium deposit from the infraspinatus), biceps tenodesis, subacrom ial compression, and rotator cuff repair (subscapularis and closure of calcium defect). Activity: For 6 weeks, you should keep your arm at your side in a neutral position at all times except for physical therapy. Do not try to lift or raise your arm using your own muscles. You should use the sling whenever you are out of the house. You may have to adjust the abduction pillow or remove it for c omfort. At home it is best to remove the sling and rest the arm on a pillow at your side or support the operative side with your other hand. You may allow the arm to dangle at your side. A physical therapy prescription will be sent electronically to begin in about 3 weeks. Prescriptions: You may use [id number] Tylenol (acetaminophen) as needed for mild pain. Oxycodone 5 mg take 1-2 every 4-6 hours as needed for severe pain Avoid NSAIDs due to lithium toxicity Dressings: Remove shoulder bandage after 3 days. Leave the sticky Steri-Strips in place until they fall off or remove them after you shower. Cover the incisions with Band-Aids or leave them open to air. You may shower after 5 days. Follow-up: 10-[address] Rico You may take off the leg compression stockings this evening at home. You may also leave them on a few days longer if you have a history of leg swelling or edema. Let us know right away if you develop any redness, drainage, fevers, chest pain, or trouble breathing. Do not drink alcohol or drive for at least 24 hours after anesthesia. Please call the office during business hours with any questions or concerns. Discharge Orders Discharge Orders: Discharge Order (Routine); Ordered 04/22/23 Ordered By: Joselito Goetz DS: Diagnosis Discharge Diagnosis (1) Calcific tendonitis of right shoulder: Status: Acute (2) Tendonitis of long head of biceps brachii of right shoulder: Status: Acute (3) Bursitis of right shoulder: Status: Acute
--- NOTE | 2023-04-22 07:38 | W.PM.OP ---
Date of service: 04/22/23 Time of Service: 14:00 Operative Note Operative Note DATE OF PROCEDURE: 04/22/23 PRE-OP DIAGNOSIS: Right: 1. Calcific tendinitis 2. LHB tendinopathy 3. Bursitis 4. Impingement POST-OP DIAGNOSIS: same Right: 1. Calcific tendinitis 2. LHB tendinopathy 3. Bursitis 4. Impingement 5. Rotator cuff tear PROCEDURE: Right: 1. Rotator cuff repair, CPT# 12466. This involved suture repair of the subscapularis rotator cuff tear and suture repair of the infraspinatus defect after calcium debridement. 2. Arthroscopic biceps tenodesis, CPT# 04455. This involved arthroscopically suturing and reattaching the long head of the biceps tendon to the proximal humerus at the superior margin of the bicipital groove with a screw at the correct tension. 3. Extensive debridement, CPT# 53253. This involved using arthroscopic hand instruments, power instruments, and radiofrequency instruments to release the long head of the biceps tendon and debride areas of SLAP tearing, anterior and posterior labral tearing, rotator interval synovitis, and debride disrupted anterior biceps sling SG gel CHL and release [facility] L from subscapularis working within the glenohumeral joint anteriorly, superiorly and posteriorly. 4. Subacromial decompression with partial acromioplasty, CPT# 95174. This involved using arthroscopic power instruments and a radiofrequency wand to complete a bursectomy and smooth the undersurface of the acromion. The title assistant was medically required in order to help assist in techniques above, which require positioning the arm, holding the arthroscope, and manipulating multiple instruments and sutures at the same time. This cannot be done without the help of an experienced title assistant. SURGEON: Steven Rico [employer] ASSISTANT: Joselito Goetz ANESTHESIA TYPE: Local By Surgeon, General LMA/ETT and Primary Nerve Block Refer to Anesthesia Record ESTIMATED BLOOD LOSS: 10 PATHOLOGY: none sent COMPLICATIONS: None Patient was transported to: PACU Patient's condition: stable Implants: Arthrex: 4.75mm SwiveLocks x 1 Indications: The patient was diagnosed with the above conditions and appropriately indicated for surgical intervention. Please see complete medical record for details. Findings: Exam under anesthesia: Full range of motion, no instability Glenohumeral joint: Significant labral disruption SLAP tear at biceps anchor that continued down the anterior labrum, which was diminutive consistent with a Chasity complex as there was a cordlike [facility] L. Adhesed to the subscapularis. There was moderate lateral subscapularis body tearing without significant footprint involvement. Disruption of the biceps sling [facility] L CHL and partial biceps tearing in the groove and inflamed intra-articular segment. Mild articular anterior supraspinatus tearing. No infraspinatus articular tearing. Subacromial space: Mild bursitis, minimal undersurface acromial bone spurring, significant inflamed bursal infraspinatus about the area of expected calcium deposit with only small calcium released from this area. Intact bursal remainder rotator cuff. Procedure Description: In the operating room, general anesthesia was induced. Bilateral shoulders were examined. The patient was positioned in the beachchair position. All bony prominences were well-padded. Preoperative antibiotics were administered. The shoulder was prepped and draped in the usual sterile fashion. The correct patient, procedure, and side of the procedure were all verified prior to incision. Starting through the posterior portal a standard complete diagnostic arthroscopy was performed of the glenohumeral joint including inspection of the long head of the biceps, anterior and superior labrum, subscapularis tendon, supraspinatus and infraspinatus tendons, and axillary recess. The glenoid and humeral head cartilage as well as the posterior labrum were inspected from an anterior viewing portal. Significant findings and interventions noted above. An all-arthroscopic suprapectoral biceps tenodesis was performed through an anterior portal using a Loop N Tack method with a SutureTape FiberLink cinched around and through the tendon. The biceps was tenotomized from the labrum and fixated with a suture anchor at the superior margin of the bicipital groove. The extra knotless repair suture was passed around the biceps stump, show through the anchor mechanism, and secured for additional fixation. The subscapularis tear was lightly debrided, 90 degree lasso used to shuttle a suture tape around the bulk of the tear and then secured with SMC Arthrex knot directed away from the joint closing the torn tissue. Subscapularis remained fixated to the tuberosity did not require any additional repair. Starting through the posterior portal, the arthroscope was directed into the subacromial space. A lateral 50 yard line lateral portal was created. A combination of power instruments and a radiofrequency ablator were used to debride bursitis anteriorly, posteriorly, and laterally, which was largest posterior laterally, as well as re-expose and smooth minimal bone spurring on the undersurface of the acromion. The coracoacromial ligament was not prominent. The bursectomy was completed viewing laterally and working from posteriorly and the rotator cuff was thoroughly inspected with findings noted above. There was significant hemorrhagic inflammation about the posterior superior rotator cuff about the area of the infraspinatus large calcific deposit on the MRI. Needle localization was used, but failed to reveal or express calcium from the tendon. The sharp and with switching stick was then used attempt to better localize the calcium deposit, but was not readily identifiable. A small longitudinal kenzie was made in the bursal fibers followed by insertion of switching stick and expression with squeezing of the rotator cuff grasper to identify and remove the calcium deposit, but was largely unsuccessful. The area of concern was widened checking closer to the supraspinatus anteriorly as well as infraspinatus more posteriorly and medially, but there was no other tissue area of concern. The cuff was trephinated with a spinal needle around the area of concern without any additional calcium expressed either. Back at the area that had the hemorrhage and some calcium expressed, the shaver was inserted and the defect and without running the blade suction was used to remove a small amount of calcium material. The cuff grasper was then used in the defect to grasp and try to remove the deposit but did not really express Wilfrido. The arm was rotated and the cuff squeezed with a grasper and very switching sticks in various positions and there was no additional expression of calcium deposit. The small defect was then closed [id number] with a suture tape passed with the lasso and secured with SMC arthroscopic knot. The shoulder was drained of arthroscopic fluid. All portal sites were copiously irrigated. These incisions were closed using 3-0 Monocryl in a buried fashion and then covered with Mastisol, Steri-Strips, Xeroform, dry gauze, and ABDs. The dressings were covered and secured with Medipore tape. The operative extremity was placed into a sling for immobilization. The patient awoke from anesthesia without complication and was transferred to the recovery room in a stable condition.
[2023-04-22] MEDS: Lactated Ringers 1,000 ML 30 ML IV (10:52)
--- NOTE | 2023-04-22 12:22 | W.ANESPRE ---
General Info Date of Service Date Performed: 04/22/23 Height: 5 ft 2 in Weight: 97.069 kg Body Mass Index (BMI): 39.1 Surgical Procedure: Operation Date: 04/22/23 12:25 Proposed Procedure Side Surgeon p Shoulder Rotator Cuff Arthroscopic w/Extensive Debridement, Biceps Tenodesis, Subacromial Decompression Right Steven Rico MD Meds Allergies and Home Medications Allergies Allergy/AdvReac Type Severity Reaction Status Date / Time baclofen Allergy Intermediate rash Verified 04/22/23 10:05 duloxetine Allergy Intermediate Other (See Unverified 04/22/23 10:05 Comment) methylprednisolone Allergy Intermediate Other (See Verified 04/22/23 10:05 [From Medrol] Comment) tree and shrub pollen Allergy Unknown Other (See Unverified 04/22/23 10:05 Comment) lurasidone [From Latuda] AdvReac Unknown Other (See Verified 04/22/23 10:05 Comment) Home Medication Medication Instructions Recorded acetaminophen 500 mg tablet 1,000 mg (2 x 500 mg) PO TID PRN 07/23/16 (Acetaminophen Extra Strength) PRN #180 tabs blood sugar diagnostic (OneTouch 10/31/19 Verio test strips) lancets 30 gauge (OneTouch Delica 10/31/19 Plus Lancet) rosuvastatin 5 mg tablet (Crestor) 5 mg PO HS 10/31/19 cholecalciferol (vitamin D3) 250 500 mcg PO DAILY 01/07/21 mcg (10,000 unit) capsule duloxetine 60 mg capsule,delayed 60 mg PO DAILY 01/07/21 release (Cymbalta) glipizide 5 mg tablet 5 mg PO BID 01/07/21 trazodone 150 mg tablet 150 mg PO QHS 01/07/21 clonazepam 0.5 mg tablet 1 mg PO QHS 08/11/22 esomeprazole magnesium 40 mg 20 mg PO DAILY 08/11/22 capsule,delayed release (Nexium) lithium carbonate 300 mg tablet 900 mg PO DAILY 11/17/22 allopurinol 300 mg tablet 400 mg PO DAILY 01/12/23 metoprolol succinate 50 mg 50 mg PO DAILY 02/23/23 tablet,extended release 24 hr nicotine (polacrilex) 2 mg buccal mg 04/20/23 lozenge nicotine 7 mg/24 hr daily 1 patch transdermal Q24H 04/20/23 transdermal patch oxycodone 5 mg tablet 5 - 10 mg (1 - 2 x 5 mg) PO Q4H 04/22/23 PRN Moderate to severe pain #18 tabs Current Visit Medications: Current Medications Generic Name Dose Route Start Last Admin Trade Name Kevq PRN Reason Stop Dose Admin Ringer's Solution 1,000 mls @ 30 mls/hr 04/22/23 06:00 04/22/23 10:52 IV 05/21/23 23:59 30 mls/hr INFUSION RACHEAL Administration Cefazolin Sodium 3,000 mg/ 100 mls @ 200 mls/hr 04/22/23 06:00 Sodium Chloride IVPB 04/22/23 16:00 PREOP RACHEAL IV Miscellaneous Supplies 1 each 04/22/23 06:00 Iv Access IV 05/21/23 23:59 DIRECTED RACHEAL Oxycodone HCl 0 mg 04/22/23 07:14 Oxycodone 5 Mg Tab PO 05/22/23 07:13 Q3H PRN PRN Pain Sodium Chloride 0 ml 04/22/23 06:00 Normal Saline Flush 10 Ml Syr IV 05/21/23 23:59 PRN PRN Sodium Chloride 0 ml 04/22/23 06:00 Normal Saline 10 Ml Vial IJ 05/21/23 23:59 DIRECTED PRN Sterile Water 0 ml 04/22/23 06:00 Water,Injection,Sterile 10 Ml Vial IJ 05/21/23 23:59 DIRECTED PRN PFSH Active Problems Active Problems: Problem Status Onset Code Impingement syndrome of right shoulder M75.41 Bursitis of right shoulder M75.51 Tendonitis of long head of biceps brachii of right shoulder M75.21 Calcific tendonitis of right shoulder M75.31 Bipolar disorder with depression F31.9 Shingles B02.9 Leukocytosis D72.829 Suicidal ideation R45.851 Hypomagnesemia E83.42 Calcific tendinitis of both shoulders 05/11/16 M75.31, M75.32 REX on CPAP 03/26/14 G47.33, Z99.89 Tobacco use disorder 03/26/14 F17.200 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 states no potential triggers at this time Arthritis of right acromioclavicular joint (07/15/16) Dysphonia (03/26/14) GERD (gastroesophageal reflux disease) (03/26/14) GERD with apnea (03/26/14) Sensorineural hearing loss, asymmetrical (03/26/14) Depression Sacroiliac joint dysfunction of left side REX (obstructive sleep apnea) Medical History Comments:: Pt. states when she had vocal cord/nasal polyps removed, and the tube was removed her throat closed Surgical History Surgical History History of nasal surgery nasal polyps removed S/P shoulder surgery RIGHT SHOULDER--2017 History of surgical procedure foraminotomy bunion correction via Cheilectomy Nerve Decompression Lumbar spine Lithotripsy x3 Hysterectomy, Laproscopic Cholecystectomy Appendectomy Tobacco Smoking/Tobacco Use Status: Former Tobacco Use Alcohol Alcohol Intake: former Year quit: 2011 Substance Use Substance use: Occasionally Substance use type: former substance user, marijuana and crack/cocaine Details: 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 Vital Signs and Lab Results Vital Signs Most Recent Vital Signs in EMR: Most Recent Vital Signs Temp Pulse Resp BP Pulse Ox 36.7 C 69 16 142/81 H 97 04/22/23 10:09 04/22/23 10:09 04/22/23 10:09 04/22/23 10:09 04/22/23 10:09 Point of Care Results Point of Care Results: Finger Stick Blood Glucose 134 04/22/23 10:42 Lab Results Blood Type / Crossmatch: No Data to Display Complete Blood Count: No Data to Display Complete Metabolic Panel: No Data to Display Liver Function Panel: No Data to Display Coagulation Panel: No Data to Display Cardiac Panel: No Data to Display Arterial Blood Gas: No Data to Display Venous Blood Gas: No Data to Display Pancreas Panel: No Data to Display Thyroid Panel: No Data to Display Infectious Disease: No Data to Display Blood Cultures: No Data to Display Toxicology Panel: No Data to Display Anesthesia Assessment and Plan Anesthesia History Personal History: No History of Anesthesia Complications and Other Family History: No Family History of Anesthesia Complications Exercise Tolerance Exercise Tolerance: Metabolic Equivalents>4 Pertinent Negatives Pertinent Negatives: No Symptoms of GERD (controlled on nexium), No Major Cardiovascular Symptoms or Complaints, No Major Pulmonary Symptoms or Complaints and No History of CVA/TIA Cardiac & Pulmonary Exam Cardiac Exam: Normal S1/S2 Heart Sounds Pulmonary Exam: Clear Bilateral Breath Sounds Implantable Cardiac Device Does patient have a Pacemaker or an ICD?: No Airway Exam Known Difficult Airway: No Mallampati Class: 2 Mouth Opening: Normal (> 3cm) Thyromental Distance: Less than 3 cm Neck Range of Motion: Full ROM Neck Circumference: Thick Teeth Condition: Normal Dentition and Generalized Poor Dentition ASA Classification ASA Score: ASA 2 Emergency Case?: No NPO Status NPO Status: NPO Clears >2 hours, Solids >8 hours Anesthesia Plan Resuscitation Status: Full Code Anesthesia Technique: General Anesthesia Airway Planned: Endotracheal Tube Pain Management: Surgeon and patient request nerve block Monitors Used: Standard Monitors
[2023-04-22] MEDS: ceFAZolin 3,000 MG in Normal Saline 100 ML 200 MG IVPB (13:44)
[2023-04-22] MEDS: Tranexamic Acid 1,000 MG/10 ML VIAL 1000 MG (13:55)
--- NOTE | 2023-04-22 13:55 | W.ANESNERVE ---
Nerve Block Single Injection Procedure Date and Time Date Performed: 04/22/23 Procedure Start: 13:05 Location Where Procedure Performed Procedure Location: Day Surgery Unit Reason Performed: Postoperative Analgesia Requesting Provider: Steven Rico Timeout Performed Timeout Performed: Yes Monitoring Used ECG, Blood Pressure and SpO2 Sterility Sterility: Hand Hygiene, Surgical Cap, Surgical Mask, Sterile Gloves and Chlorhexidine Sedation Given During Procedure Sedation Given (Indicate Dose Given): Versed IV Dose:: 2 mg Patient Mental Status Patient Mental Status: Sedate with meaningful communication Nerve Block 1st Nerve Block: Laterality: Right Block Type: Interscalene Ultrasound Image Saved?: Yes Needle / Catheter Used: 100mm SonoPlex II Local Anesthetic Bolus (Indicate Dose Given): Lidocaine used for local infiltration of skin, Injected in 3-5ml increments after negative blood aspiration, Bupivacaine 0.5% Dose:: 10 ml and Exparel Dose:: 10 ml Additives (Indicate Dose Given): Normal Saline (hydrodissection) Ultrasound: Sterile probe cover and gel used Nerve Stimulator: Supplement to Ultrasound use and No twitch or parasthesia noted < 0.5 mA Paresthesia: None Procedure Tolerated: No Complications and Patient tolerated well Procedure Outcome: Successful Performed By: Arvind Ragland
[2023-04-22] MEDS: Bupivacaine 0.25% Pres-Free 30 ML VIAL (14:25)
[2023-04-22] MEDS: EPINEPHrine 10 MG/10 ML ML ×2 (14:26→15:34)
--- NOTE | 2023-04-22 16:59 | W.ANESPOSTOP ---
Postoperative Evaluation Date, Time and Location Date Performed: 04/22/23 Time Performed: 16:59 Patient Location: Day Surgery Unit Vital Signs Most Recent Imported Vital Signs: Most Recent Vital Signs Temp Pulse Resp BP Pulse Ox 36.5 C 67 16 105/81 95 04/22/23 16:57 04/22/23 16:57 04/22/23 16:57 04/22/23 16:26 04/22/23 16:57 Pain Score Most Recent Pain Score: Most Recent Pain Score Pain Level 0 04/22/23 16:57 Assessment Mental Status: Awake (Alert & Oriented to Patient Baseline) Airway and Respiratory Function: Patent airway with normal (patient baseline) respiratory exam Cardiovascular Function: Hemodynamically Stable Hydration Status: Adequately Hydrated Nausea & Vomiting: No Nausea or Vomiting Pain: Pt. Denies Any Pain Peripheral Nerve Block: Regional nerve block not resolved at time of post operative discharge
== END 2023-04-22 17:25 | disposition home or self-care (01) ==
LOC: SUR 09:47
PROVIDERS: PCP Internal Medicine; Visit Provider Student in an Organized Health Care Education/Training Program
PROC: (CPT 29827; principal; 2023-04-22 12:15)
DX: M75.31 Calcific tendinitis of right shoulder (principal); M75.21 Bicipital tendinitis, right shoulder; M75.51 Bursitis of right shoulder; G47.33 Obstructive sleep apnea (adult) (pediatric)
CPT/HCPCS: 29827; 29828; 29823; 29826; 76942; C9290; J0131; J0665; J0690; J1100; J2001; J2250; J2371; J2405; J2704

== ENCOUNTER 2023-04-28 22:53 | Outpatient (REF) | payer MEDICARE, SELFPAY ==
[2023-04-28 20:10] LABS: HCT 39.3 % (36.0-46.0); HGB 13.1 g/dL (11.2-15.7); MCH 31.1 pg (27.0-33.0); MCHC 33.3 % (32.0-36.0); MCV 93 fL (80-95); MPV 11.9 fL (8.0-11.0); Platelet Count 251 10^3/uL (130-400); RBC 4.21 10^6/uL (3.93-5.22); RDW 12.8 % (11.7-14.6); RDW-SD 43.8 fL; WBC 11.34 10^3/uL (4.4-10.8)
[2023-04-28 20:17] LABS: Lithium 0.5 mmol/l (0.6-1.2)
[2023-04-28 20:31] LABS: ALT 52 U/L (14-59); AST 32 U/L (15-37); Albumin 3.8 g/dL (3.4-5.0); Alkaline Phosphatase 60 U/L (46-116); Anion Gap 10.6 mmol/L (3-11); BUN 12 mg/dL (7-18); Bilirubin, Total 0.3 mg/dL (0.2-1.0); CO2 25.4 mmol/L (21.0-32.0); CREATININE 0.8 mg/dL (0.55-1.02); Calcium 9.6 mg/dL (8.5-10.1); Chloride 103 mmol/L (98-107); Estimated GFR 86.96 (mL/min/1.73m2); Glucose 140 mg/dL (74-106); Potassium 3.9 mmol/L (3.5-5.1); Sodium 139 mmol/L (136-145); Total Protein 7.4 g/dL (6.4-8.2); Uric Acid 3.7 mg/dL (2.6-6.0)
== END 2023-04-28 22:54 | disposition home or self-care (01) ==
LOC: NCHCN 22:53
PROVIDERS: PCP Internal Medicine; Visit Provider Internal Medicine
DX: E11.9 Type 2 diabetes mellitus without complications (principal); M10.9 Gout, unspecified; F31.89 Other bipolar disorder; Z51.81 Encounter for therapeutic drug level monitoring; Z79.899 Other long term (current) drug therapy
CPT/HCPCS: 80053; 85027; 80178; 84550

== ENCOUNTER → 2023-05-04 11:08 | Outpatient (BNVA) | payer MEDICARE, SELFPAY | PROVIDERS: PCP Internal Medicine; Visit Provider Student in an Organized Health Care Education/Training Program | DX: M75.31 Calcific tendinitis of right shoulder (principal); M75.21 Bicipital tendinitis, right shoulder; M75.51 Bursitis of right shoulder; M75.41 Impingement syndrome of right shoulder; Z47.89 Encounter for other orthopedic aftercare ==

== ENCOUNTER 2023-06-02 21:20 | Outpatient (REF) | payer MEDICARE, SELFPAY ==
[2023-06-02 20:11] LABS: Lithium 0.6 mmol/l (0.6-1.2)
== END 2023-06-02 21:21 | disposition home or self-care (01) ==
LOC: NCHCN 21:20
PROVIDERS: PCP Internal Medicine; Visit Provider Nurse Practitioner Psychiatric/Mental Health
DX: F31.89 Other bipolar disorder (principal); Z51.81 Encounter for therapeutic drug level monitoring; Z79.899 Other long term (current) drug therapy
CPT/HCPCS: 80178

== ENCOUNTER 2023-06-08 13:43 | Outpatient (REF) | payer MEDICARE, SELFPAY ==
[2023-06-08 19:59] LABS: Abs Immature Grans 0.04 10^3/uL (0.0-0.06); Absolute Basophil Count 0.06 10^3/uL (0.0-0.2); Absolute Eosinophil Count 0.33 10^3/uL (0.0-0.7); Absolute Lymphocyte Count 2.13 10^3/uL (1.2-3.4); Absolute Monocyte Count 0.57 10^3/uL (0.1-0.8); Absolute Neutrophil Count 6.53 10^3/uL (1.2-6.7); Basophils % 0.6; Eosinophils % 3.4; HCT 38.3 % (36.0-46.0); HGB 12.6 g/dL (11.2-15.7); Immature Grans % 0.4; MCH 31.3 pg (27.0-33.0); MCHC 32.9 % (32.0-36.0); MCV 95 fL (80-95); MPV 12.4 fL (8.0-11.0); Monocytes % 5.9; Neutrophils % 67.7; Platelet Count 200 10^3/uL (130-400); RBC 4.02 10^6/uL (3.93-5.22); RDW 12.8 % (11.7-14.6); RDW-SD 44.9 fL; WBC 9.66 10^3/uL (4.4-10.8)
[2023-06-08 20:04] LABS: ESR 7 mm/hr (0-30)
[2023-06-08 20:12] LABS: C-Reactive Protein < 0.50 mg/dL (<or=0.5)
== END 2023-06-08 13:44 | disposition home or self-care (01) ==
LOC: NCHCN 13:43
PROVIDERS: PCP Internal Medicine; Visit Provider Student in an Organized Health Care Education/Training Program
DX: S46.011A Strain of muscle(s) and tendon(s) of the rotator cuff of right shoulder, initial encounter (principal); X58.XXXA Exposure to other specified factors, initial encounter
CPT/HCPCS: 85652; 85025; 86140

== ENCOUNTER 2023-06-15 11:31 | Outpatient (CLI) | payer MEDICARE, SELFPAY ==
--- NOTE | 2023-06-15 11:53 | DI.RAD_ITS ---
Exam(s) XR SHOULDER RT COMPLETE 2+V EXAM: XR SHOULDER RT COMPLETE 2+V CLINICAL HISTORY: RIGHT SHOULDER PAIN. TECHNIQUE: 2D digital imaging was performed. COMPARISON: CR XR SHOULDER RT COMPLETE 2+V from 01/12/2023 FINDINGS: 3 views No evidence of fracture nor dislocation nor glenohumeral joint space narrowing. There are multiple soft tissue calcifications again noted adjacent to the humeral head. However, the largest of these which was evident on the December 2022 images is no longer seen. No significant osseous lesions. IMPRESSION: Persistent soft tissue calcifications but with some improvement as described above. DATA REPOSITORY: RADIATION DOSE DELIVERED:
== END 2023-06-15 11:32 | disposition home or self-care (01) ==
LOC: DIORS 11:31
PROVIDERS: PCP Internal Medicine; Visit Provider Student in an Organized Health Care Education/Training Program
DX: S46.011D Strain of muscle(s) and tendon(s) of the rotator cuff of right shoulder, subsequent encounter; X58.XXXD Exposure to other specified factors, subsequent encounter; M75.51 Bursitis of right shoulder
CPT/HCPCS: 73030

== ENCOUNTER → 2023-06-24 02:43 | Outpatient (CLI) | payer MEDICARE, SELFPAY ==
--- NOTE | 2023-06-24 09:05 | DI.MRI_ITS ---
Exam(s) MR UPPER JOINT RT WO EXAM: MR UPPER JOINT RT WO CLINICAL HISTORY: postop injury, BT/RCR FAILURE, RUPTURE RT PROX BICEPS TENDON. TECHNIQUE: Multiplanar multisequence MRI was performed. COMPARISON: Plain films 15 June 2023 MRI right shoulder 08 February 2023 [facility] FINDINGS: Exam is limited by motion BONES: There is no fracture or contusion pattern. Postsurgical lucency in the anterior humeral head . JOINTS:The acromioclavicular joint is normal. The glenohumeral joint is normal. TENDONS: Supraspinatus: Thickening and edema no focal tear. Infraspinatus: Focal area of edema noted and and previous location of large calcification. A few sma ll calcifications persist in this area. Subscapularis: Unremarkable. Teres Minor: Unremarkable. Biceps and Cashiers: Some thinned proximally. Somewhat thickened and edematous distally. MUSCLES: Unremarkable. GLENOID LABRUM: Unremarkable on this noncontrast examination. SOFT TISSUES: Unremarkable. OTHER: Subacromial and subdeltoid bursae contains a s small amount of fluid. . IMPRESSION: Thinning of the proximal biceps tendon consistent with partial tear. Tendinosis of the supraspinatus tendon. Calcific tendinosis of the infraspinatus with removal previously noted large calcification. DATA REPOSITORY:
== END ==
PROVIDERS: PCP Internal Medicine; Visit Provider Student in an Organized Health Care Education/Training Program
DX: S46.111A Strain of muscle, fascia and tendon of long head of biceps, right arm, initial encounter (principal); X58.XXXA Exposure to other specified factors, initial encounter; Z98.890 Other specified postprocedural states
CPT/HCPCS: 73221

== ENCOUNTER → 2023-07-06 11:15 | Outpatient (BNVA) | payer MEDICARE, SELFPAY | PROVIDERS: PCP Internal Medicine; Visit Provider Student in an Organized Health Care Education/Training Program | DX: M75.31 Calcific tendinitis of right shoulder (principal); M75.21 Bicipital tendinitis, right shoulder; M75.51 Bursitis of right shoulder ==

== ENCOUNTER 2023-07-13 15:51 | Outpatient (CLI) | payer MEDICARE, SELFPAY ==
--- NOTE | 2023-07-13 15:18 | DI.RAD_ITS ---
Exam(s) XR SHOULDER LT COMPLETE 2+V EXAM: XR SHOULDER LT COMPLETE 2+V CLINICAL HISTORY: LEFT SHOULDER PAIN. TECHNIQUE: 2D digital imaging was performed. Three views. COMPARISON: CR XR SHOULDER LT COMPLETE 2+V from 02/04/2021 FINDINGS: BONES: No acute fracture is present. No bony destructive lesion is seen. JOINTS: No dislocation present. The AC joint. No significant degenerative changes of the glenohumer al joint. SOFT TISSUE: There is a calcification above the greater tuberosity which appears smaller when compare d with the previous exam, consistent with calcific tendinosis. IMPRESSION: Calcific tendinosis. DATA REPOSITORY: RADIATION DOSE DELIVERED:
== END 2023-07-13 15:52 | disposition home or self-care (01) ==
LOC: DIORS 15:51
PROVIDERS: PCP Internal Medicine; Referring Provider Internal Medicine; Visit Provider Student in an Organized Health Care Education/Training Program
DX: M75.32 Calcific tendinitis of left shoulder
CPT/HCPCS: 20610; J1010; 73030

== ENCOUNTER 2023-07-20 18:29 | Outpatient (REF) | payer MEDICARE, SELFPAY ==
[2023-07-20 19:40] LABS: Lithium 0.8 mmol/L (0.6-1.2)
== END 2023-07-20 18:30 | disposition home or self-care (01) ==
LOC: NCHCN 18:29
PROVIDERS: PCP Internal Medicine; Visit Provider Nurse Practitioner Psychiatric/Mental Health
DX: F31.89 Other bipolar disorder (principal); Z51.81 Encounter for therapeutic drug level monitoring; Z79.899 Other long term (current) drug therapy
CPT/HCPCS: 80178

== ENCOUNTER 2023-08-16 15:06 | Outpatient (REF) | payer MEDICARE, SELFPAY ==
[2023-08-16 20:15] LABS: Lithium 0.7 mmol/L (0.6-1.2)
[2023-08-16 20:29] LABS: ALT 47 U/L (14-59); AST 42 U/L (15-37); Albumin 3.9 g/dL (3.4-5.0); Alkaline Phosphatase 70 U/L (46-116); Anion Gap 10.4 mmol/L (3-11); BUN 9 mg/dL (7-18); CO2 24.6 mmol/L (21.0-32.0); CREATININE 0.9 mg/dL (0.55-1.02); Calcium 9.8 mg/dL (8.5-10.1); Chloride 103 mmol/L (98-107); Glucose 217 mg/dL (74-106); Potassium 4.2 mmol/L (3.5-5.1); Sodium 138 mmol/L (136-145); TSH 3.27 uIU/Ml (0.36-3.74); Total Protein 7.4 g/dL (6.4-8.2)
== END 2023-08-16 15:07 | disposition home or self-care (01) ==
LOC: NCHCN 15:06
PROVIDERS: PCP Internal Medicine; Visit Provider Nurse Practitioner Psychiatric/Mental Health
DX: F31.9 Bipolar disorder, unspecified (principal); Z51.81 Encounter for therapeutic drug level monitoring; Z79.899 Other long term (current) drug therapy
CPT/HCPCS: 80053; 80178; 84443

== ENCOUNTER 2023-10-20 09:21 | Outpatient (REF) | payer MEDICARE, SELFPAY ==
[2023-10-20 20:08] LABS: Lithium 0.5 mmol/L (0.6-1.2)
== END 2023-10-20 09:22 | disposition home or self-care (01) ==
LOC: NCHCN 09:21
PROVIDERS: PCP Internal Medicine; Visit Provider Internal Medicine
DX: F31.9 Bipolar disorder, unspecified (principal); Z79.899 Other long term (current) drug therapy; Z51.81 Encounter for therapeutic drug level monitoring
CPT/HCPCS: 80178

== ENCOUNTER → 2023-11-02 08:53 | Outpatient (BNVA) | payer MEDICARE, SELFPAY | PROVIDERS: PCP Internal Medicine; Referring Provider Internal Medicine; Visit Provider Student in an Organized Health Care Education/Training Program | DX: M75.32 Calcific tendinitis of left shoulder (principal); M75.102 Unspecified rotator cuff tear or rupture of left shoulder, not specified as traumatic | CPT/HCPCS: 99213 ==

== ENCOUNTER 2023-11-05 17:45 | Outpatient (REF) | payer MEDICARE, SELFPAY ==
[2023-11-05 19:59] LABS: ALT 61 U/L (14-59); AST 55 U/L (15-37); Albumin 4.1 g/dL (3.4-5.0); Alkaline Phosphatase 63 U/L (46-116); Anion Gap 14.9 mmol/L (3-11); BUN 7 mg/dL (7-18); Bilirubin, Total 0.24 mg/dL (0.2-1.0); CO2 21.1 mmol/L (21.0-32.0); CREATININE 0.9 mg/dL (0.55-1.02); Calcium 9.1 mg/dL (8.5-10.1); Chloride 103 mmol/L (98-107); Estimated GFR 75.03 (mL/min/1.73m2); Glucose 208 mg/dL (74-106); Potassium 3.8 mmol/L (3.5-5.1); Sodium 139 mmol/L (136-145); Total Protein 7.4 g/dL (6.4-8.2)
== END 2023-11-05 17:46 | disposition home or self-care (01) ==
LOC: NCHCN 17:45
PROVIDERS: PCP Internal Medicine; Visit Provider Nurse Practitioner Psychiatric/Mental Health
DX: F31.9 Bipolar disorder, unspecified (principal)
CPT/HCPCS: 80053

== ENCOUNTER 2023-11-08 16:08 | Outpatient (REF) | payer MEDICARE, SELFPAY ==
[2023-11-08 22:11] LABS: Lithium 0.6 mmol/L (0.6-1.2)
== END 2023-11-08 16:09 | disposition home or self-care (01) ==
LOC: NCHCN 16:08
PROVIDERS: PCP Internal Medicine; Visit Provider Nurse Practitioner Psychiatric/Mental Health
DX: F31.9 Bipolar disorder, unspecified (principal)
CPT/HCPCS: 80178

== ENCOUNTER 2023-11-22 02:16 | Outpatient (CLI) | payer MEDICARE, SELFPAY ==
--- NOTE | 2023-11-22 07:15 | DI.MRI_ITS ---
Exam(s) MR UPPER JOINT LT WO EXAM: MR UPPER JOINT LT WO CLINICAL HISTORY: ? RTC TEAR,calcific tendinitis lt shoulder,m75.32. TECHNIQUE: Multiplanar multisequence MRI was performed. COMPARISON: Plain films 13 Jul 2023 FINDINGS: There is no fracture or contusion pattern. The acromioclavicular joint shows mild inferior spurring. No subacromial, subcoracoid or glenohumeral joint effusion is present. The supraspinatus tendonshows a focal area of low signal corresponding to the calcification seen on p blossom films. No significant surrounding abnormal signal.. The infraspinatus tendon is intact. The subscapularis and teres minor tendons are normal. The biceps tendon is normally located. The anchor is well maintained. The labrum is within normal limits. IMPRESSION: Calcification in the distal supraspinatus tendon without evidence of tear. DATA REPOSITORY:
== END 2023-11-22 02:36 ==
LOC: DI 02:16
PROVIDERS: PCP Internal Medicine; Visit Provider Student in an Organized Health Care Education/Training Program
DX: M75.32 Calcific tendinitis of left shoulder (principal)
CPT/HCPCS: 73221

== ENCOUNTER 2023-11-22 08:53 | Outpatient (REF) | payer MEDICARE, SELFPAY ==
[2023-11-22 19:30] LABS: HCT 41.6 % (36.0-46.0); HGB 13.3 g/dL (11.2-15.7); MCH 31.1 pg (27.0-33.0); MCV 97 fL (80-95); MPV 12.7 fL (8.0-11.0); Platelet Count 176 10^3/uL (130-400); RBC 4.28 10^6/uL (3.93-5.22); RDW 13.2 % (11.7-14.6); RDW-SD 46.7 fL; WBC 9.49 10^3/uL (4.4-10.8)
[2023-11-22 19:45] LABS: ALT 52 U/L (14-59); AST 40 U/L (15-37); Albumin 3.9 g/dL (3.4-5.0); Alkaline Phosphatase 67 U/L (46-116); Anion Gap 10.9 mmol/L (3-11); BUN 10 mg/dL (7-18); Bilirubin, Total 0.21 mg/dL (0.2-1.0); CO2 23.1 mmol/L (21.0-32.0); Calcium 9.6 mg/dL (8.5-10.1); Chloride 105 mmol/L (98-107); Estimated GFR 66.12 (mL/min/1.73m2); Glucose 212 mg/dL (74-106); Sodium 139 mmol/L (136-145); TSH 3.15 uIU/Ml (0.36-3.74); Total Protein 7.5 g/dL (6.4-8.2); Uric Acid 2.7 mg/dL (2.6-6.0)
[2023-11-22 20:03] LABS: Lithium 0.6 mmol/L (0.6-1.2)
== END 2023-11-22 08:54 | disposition home or self-care (01) ==
LOC: NCHCN 08:53
PROVIDERS: PCP Internal Medicine; Visit Provider Internal Medicine
DX: I10 Essential (primary) hypertension (principal)
CPT/HCPCS: 80053; 85027; 80178; 84439; 84443; 84550

== ENCOUNTER → 2023-11-30 14:28 | Outpatient (BNVA) | payer MEDICARE, SELFPAY | PROVIDERS: PCP Internal Medicine; Referring Provider Internal Medicine; Visit Provider Student in an Organized Health Care Education/Training Program | DX: M75.32 Calcific tendinitis of left shoulder (principal); M75.51 Bursitis of right shoulder | CPT/HCPCS: 99213 ==

== ENCOUNTER 2023-12-28 11:55 | Outpatient (REF) | payer MEDICARE, SELFPAY ==
[2023-12-28 20:16] LABS: Lithium 0.7 mmol/L (0.6-1.2)
== END 2023-12-28 11:56 | disposition home or self-care (01) ==
LOC: NCHCN 11:55
PROVIDERS: PCP Internal Medicine; Visit Provider Nurse Practitioner Psychiatric/Mental Health
DX: F31.9 Bipolar disorder, unspecified (principal)
CPT/HCPCS: 80178

== ENCOUNTER 2024-01-04 15:20 | Outpatient (CLI) | payer MEDICARE, SELFPAY ==
--- NOTE | 2024-01-04 14:15 | DI.RAD_ITS ---
Exam(s) XR SHOULDER LT COMPLETE 2+V EXAM: XR SHOULDER LT COMPLETE 2+V CLINICAL HISTORY: LEFT SHOULDER PAIN. TECHNIQUE: 2D digital imaging was performed. Three views. COMPARISON: CR XR SHOULDER LT COMPLETE 2+V from 07/13/2023 MR MR UPPER JOINT LT WO from 11/22/2023 FINDINGS: BONES: No acute fracture is present. No bony destructive lesion is seen. JOINTS: No dislocation present. Mild spurring at the AC joint. Glenohumeral joint space is maintain ed. No significant periarticular spurring. SOFT TISSUE: Ovoid calcification again noted at the greater tuberosity. IMPRESSION: Calcific tendinosis. DATA REPOSITORY: RADIATION DOSE DELIVERED:
--- NOTE | 2024-01-04 14:15 | DI.RAD_ITS ---
Exam(s) XR SHOULDER RT COMPLETE 2+V EXAM: XR SHOULDER RT COMPLETE 2+V CLINICAL HISTORY: RIGHT SHOULDER PAIN. TECHNIQUE: 2D digital imaging was performed. Two views. COMPARISON: CR XR SHOULDER RT COMPLETE 2+V from 06/15/2023 CR XR SHOULDER LT COMPLETE 2+V from 01/04/2024 FINDINGS: BONES: No acute fracture is present. No bony destructive lesion is seen. Mild spurring at the unders urface of the acromion. Minimal spurring at the inferior glenoid. JOINTS: No dislocation present. SOFT TISSUE: Rounded calcification seen posterior to the humeral head, smaller compared with prior ex am. IMPRESSION: Minimal degenerative changes. Decreased size posterior soft tissue calcification. DATA REPOSITORY: RADIATION DOSE DELIVERED:
== END 2024-01-04 15:21 | disposition home or self-care (01) ==
LOC: DIORS 15:20
PROVIDERS: PCP Internal Medicine; Referring Provider Internal Medicine; Visit Provider Student in an Organized Health Care Education/Training Program
DX: M75.32 Calcific tendinitis of left shoulder (principal); M75.51 Bursitis of right shoulder
CPT/HCPCS: 20610; J1010; 73030

== ENCOUNTER 2024-02-01 10:26 | Outpatient (REF) | payer MEDICARE, SELFPAY ==
[2024-02-01 20:32] LABS: Lithium 0.7 mmol/L (0.6-1.2)
[2024-02-01 21:00] LABS: Vitamin B12 741 pg/mL (193-986); Vitamin D 25 Total 28.2 ng/mL (30-100)
== END 2024-02-01 10:27 | disposition home or self-care (01) ==
LOC: NCHCN 10:26
PROVIDERS: Nurse Practitioner Psychiatric/Mental Health; PCP Internal Medicine; Visit Provider Internal Medicine
DX: F31.9 Bipolar disorder, unspecified (principal); Z51.89 Encounter for other specified aftercare
CPT/HCPCS: 82306; 80178; 82607

== ENCOUNTER 2024-03-15 11:09 | Outpatient (REF) | payer MEDICARE, SELFPAY ==
[2024-03-15 20:19] LABS: Lithium 0.8 mmol/L (0.6-1.2)
[2024-03-15 20:54] LABS: Folate > 20.0 ng/mL (8.6-20.0); Vitamin B12 849 pg/mL (193-986)
== END 2024-03-15 11:10 | disposition home or self-care (01) ==
LOC: NCHCN 11:09
PROVIDERS: PCP Internal Medicine; Visit Provider Nurse Practitioner Psychiatric/Mental Health
DX: F31.9 Bipolar disorder, unspecified (principal)
CPT/HCPCS: 80178; 82607; 82746

== ENCOUNTER 2024-05-31 15:51 | Outpatient (REF) | payer MEDICARE, SELFPAY ==
[2024-05-31 20:43] LABS: Lithium 0.4 mmol/L (0.6-1.2)
[2024-05-31 21:07] LABS: Anion Gap 10.5 mmol/L (3-11); BUN 7 mg/dL (7-18); CO2 24.5 mmol/L (21.0-32.0); CREATININE 0.8 mg/dL (0.55-1.02); Chloride 107 mmol/L (98-107); Estimated GFR 86.42 (mL/min/1.73m2); Glucose 107 mg/dL (74-106); Potassium 3.4 mmol/L (3.5-5.1); Sodium 142 mmol/L (136-145); TSH 1.91 uIU/mL (0.36-3.74)
== END 2024-05-31 15:52 | disposition home or self-care (01) ==
LOC: NCHCN 15:51
PROVIDERS: PCP Internal Medicine; Visit Provider Internal Medicine
DX: I10 Essential (primary) hypertension (principal); Z51.81 Encounter for therapeutic drug level monitoring
CPT/HCPCS: 80048; 80178; 84443

== ENCOUNTER 2024-06-07 09:04 | Outpatient (REF) | payer MEDICARE, SELFPAY ==
[2024-06-07 20:15] LABS: Abs Immature Grans 0.04 10^3/uL (0.0-0.06); Absolute Basophil Count 0.08 10^3/uL (0.0-0.2); Absolute Eosinophil Count 0.39 10^3/uL (0.0-0.7); Absolute Lymphocyte Count 2.16 10^3/uL (1.2-3.4); Absolute Neutrophil Count 7.58 10^3/uL (1.2-6.7); Basophils % 0.7 %; Eosinophils % 3.6 %; HCT 42.4 % (36.0-46.0); Immature Grans % 0.4 %; Lymphocytes % 19.7 %; MCH 30.9 pg (27.0-33.0); MCV 94 fL (80-95); MPV 12.6 fL (8.0-11.0); Monocytes % 6.4 %; Neutrophils % 69.2 %; Platelet Count 178 10^3/uL (130-400); RBC 4.53 10^6/uL (3.93-5.22); RDW 13.2 % (11.7-14.6); RDW-SD 45.1 fL; WBC 10.95 10^3/uL (4.4-10.8)
[2024-06-07 20:31] LABS: Lithium 0.6 mmol/L (0.6-1.2)
== END 2024-06-07 09:05 | disposition home or self-care (01) ==
LOC: NCHCN 09:04
PROVIDERS: PCP Internal Medicine; Visit Provider Nurse Practitioner Psychiatric/Mental Health
DX: Z51.81 Encounter for therapeutic drug level monitoring (principal)
CPT/HCPCS: 80178; 85025

== ENCOUNTER 2024-07-20 09:48 | Outpatient (REF) | payer MEDICARE, SELFPAY ==
[2024-07-20 19:55] LABS: Lithium 0.9 mmol/L (0.6-1.2)
[2024-07-20 19:59] LABS: ALT 66 U/L (14-59); AST 55 U/L (15-37); Albumin 4.3 g/dL (3.4-5.0); Alkaline Phosphatase 80 U/L (46-116); Anion Gap 9.4 mmol/L (3-11); BUN 9 mg/dL (7-18); Bilirubin, Total 0.3 mg/dL (0.2-1.0); CO2 25.6 mmol/L (21.0-32.0); Calcium 10.5 mg/dL (8.5-10.1); Chloride 102 mmol/L (98-107); Estimated GFR 66.12 (mL/min/1.73m2); Glucose 216 mg/dL (74-106); Potassium 4.2 mmol/L (3.5-5.1); Sodium 137 mmol/L (136-145); Total Protein 7.9 g/dL (6.4-8.2)
== END 2024-07-20 09:49 | disposition home or self-care (01) ==
LOC: NCHCN 09:48
PROVIDERS: PCP Internal Medicine; Visit Provider Nurse Practitioner Psychiatric/Mental Health
DX: Z51.81 Encounter for therapeutic drug level monitoring (principal)
CPT/HCPCS: 80053; 80178

== ENCOUNTER 2024-09-13 12:52 | Outpatient (REF) | payer MEDICARE, SELFPAY ==
[2024-09-13 21:02] LABS: Lithium < 0.2 mmol/L (0.6-1.2)
== END 2024-09-13 12:53 | disposition home or self-care (01) ==
LOC: NCHCN 12:52
PROVIDERS: PCP Internal Medicine; Visit Provider Nurse Practitioner Psychiatric/Mental Health
DX: F31.9 Bipolar disorder, unspecified (principal)
CPT/HCPCS: 80178

== ENCOUNTER 2024-11-01 15:34 | Outpatient (CLI) | payer MEDICARE, SELFPAY ==
--- NOTE | 2024-11-01 14:00 | DI.RAD_ITS ---
Exam(s) XR SHOULDER LT COMPLETE 2+V EXAM: XR SHOULDER LT COMPLETE 2+V CLINICAL HISTORY: F/U LEFT SHOULDER PAIN. TECHNIQUE: 2D digital imaging was performed. COMPARISON: CR XR SHOULDER RT COMPLETE 2+V from 01/04/2024 FINDINGS: Two views: No evidence of fracture nor dislocation. No obvious degenerative changes in the glenohumeral joint. However, on the scapular Y-view there is a thin calcific density in the subacromial space parallel to the humeral head cortical surface most probably consistent with calcific rotator cuff tendinitis. There are moderate degenerative changes in the ipsilateral left AC joint. Bone density normal. No osseous lesions. IMPRESSION: As above. Probable calcific rotator cuff tendinitis. DATA REPOSITORY: RADIATION DOSE DELIVERED:
== END 2024-11-01 15:35 | disposition home or self-care (01) ==
LOC: DIORS 15:34
PROVIDERS: PCP Internal Medicine; Referring Provider Internal Medicine; Visit Provider Student in an Organized Health Care Education/Training Program
DX: M75.32 Calcific tendinitis of left shoulder (principal); M67.922 Unspecified disorder of synovium and tendon, left upper arm; Z98.890 Other specified postprocedural states
CPT/HCPCS: 99213; 20610; J1010; 73030

== ENCOUNTER 2024-12-18 19:24 | Outpatient (REF) | payer MEDICARE, SELFPAY ==
[2024-12-18 18:52] LABS: Lithium < 0.2 mmol/L (0.6-1.2)
== END 2024-12-18 19:25 | disposition home or self-care (01) ==
LOC: NCHCN 19:24
PROVIDERS: Nurse Practitioner Psychiatric/Mental Health; PCP Internal Medicine; Visit Provider Internal Medicine
DX: Z51.81 Encounter for therapeutic drug level monitoring (principal)
CPT/HCPCS: 80178

== ENCOUNTER 2025-02-01 13:18 | Outpatient (CLI) | payer MEDICARE, SELFPAY ==
[2025-02-01 13:20] VITALS: BP 147/94; PULSE 69; RESP 18; TEMP 36.9; O2SAT 97
[2025-02-01 13:49] VITALS: PULSE 72; RESP 29; O2SAT 94
[2025-02-01 13:50] VITALS: BP 170/89; PULSE 69; RESP 11; O2SAT 95
[2025-02-01 13:51] VITALS: PULSE 70; PULSE 71; RESP 17; O2SAT 95
[2025-02-01 14:00] VITALS: PULSE 71; RESP 14; O2SAT 93
[2025-02-01 14:01] VITALS: BP 175/100; PULSE 66; RESP 13; O2SAT 95
--- NOTE | 2025-02-01 14:02 | DI.RAD_ITS ---
Exam(s) XR PAIN CLINIC LUMBAR SP 2V EXAM: XR PAIN CLINIC LUMBAR SP 2V CLINICAL HISTORY: Dx: Lumbar Spondylosis. TECHNIQUE: Fluoroscopy was provided for the referring physician for guidance with performing pain clinic injection procedure. COMPARISON: No exams were available for comparison FINDINGS: Please see procedure note for details. Fluoro time: 32.1 seconds RADIATION DOSE DELIVERED: rj Goldstein=19.4 mGy
--- NOTE | 2025-02-01 14:04 | PDOC.PAIN ---
Date of service: 02/01/25 Time of Service: 14:04 Pain Managment Procedure Note Procedure Note Procedure Note: PROCEDURE NOTE Left Lumbar Medial Branch Blocks #1 Date of Service: February 01, 2025 Patient: Lory Hutchins Provider: Arvind Cornejo DO, MPH Lory Hutchins has been [facility] to [facility] for lumbar medial branch blocks. Pre-operative diagnosis: Lumbar Spondylosis without Myelopathy ICD-10 M47.816 Post-operative diagnosis: Same Pre-procedure pain: VAS= 10/10 COMMENTS: I saw her in the office yesterday and her symptoms have not changed. Quoc was interviewed and the medical records were reviewed. There were no medical, pharmacologic, radiographic or other structural contraindications to attempting fluoroscopically guided local anesthetic lumbar medial branch blocks. Risks and potential side effects were discussed. I also discussed the potential benefit(s) of the procedure with Lory, and voiced concerns were addressed. After Lory was completely informed about the procedure, the printed consent form was signed. A standard time-out procedure was performed. Lory was placed in the prone position on the fluoroscopy table. Automated blood pressure cuff and pulse oximeter were applied. The skin entry points for approaching the anatomic target points of the segmental medial branches of left L3,L4,L5 were identified with fluoroscopy and marked. The skin at the target site area was thoroughly prepared with Chlorhexadine. The skin was then draped. Next, a 25 gauge 3.5 spinal needle was placed under fluoroscopic guidance down on to the target point (the articular pillar) for each respective segmental medial branch. Position was confirmed in A/P and lateral views. Aspiration revealed no blood or clear fluid. Next, 0.25ml of omnipaque 240 was injected at each level. No contrast following a vascular or neural pattern was visualized under continuous fluoroscopy. Next, 0.25 ml of preservative-free 0.5% bupivicaine was injected at each level. There was no unusual discomfort expressed by Lory. The needles were withdrawn without difficulty. (49 mls of Omnipaque was wasted) Lory was observed and was without hemodynamic, neurologic, or allergic reactions.? Fluoroscopic images were digitally archived. Provacative testing using the Modified Justin's facet loading test- Left side Right Side Directly before the block VAS (0-10) = 10/10 Five minutes after the block VAS (0-10) = 0/10 Percentage relief obtained with this diagnostic block 100% Any improved physical functioning directly after the blocks? Able to move her back in all directions with no pain Follow up plans and appointments were discussed with Lory. Lory was instructed to keep careful note of how the usual pain was modified by these injections. Specifically, to keep a pain diary for the next 4 hours using a numeric pain scale of 0-10 and report these results. Post procedure instruction was given as documented in the nursing documentation and having met discharge criteria, the patient was [facility] from the [facility]. Based on the medial branches blocked today, if they patient has adequate relief and we are able to proceed to radiofrequency ablation, the treatment should result in the denervation of the left L4-L5 and L5-S1 facet joints. We would expect to denervate a total of 2 facets during the radiofrequency ablation. COMMENTS: No apparent complications. Post-procedure pain: VAS= 0/10 Lory will call back with 0-4 hour post-procedure pain scores. I personally performed the entire procedure. ARVIND CORNEJO DO, MPH ABPM&R-subspecialty board certification in Pain Medicine [facility] Coding Conscious Sedation used for procedure: No CPT Codes: LMBB (includes Fluoro) Lumbar/Sacral, 2nd lvl - 47228 ([id number] ~G) LT - LEFT SIDE LMBB (includes Fluoro) Lumbar/Sacral, single lvl - 77720 ([id number] ~G) Additional Codes: Date of Service () Diagnoses: Lumbosacral spondylosis without myelopathy
[2025-02-01] MEDS: Omnipaque 240 MG/ML 50 ML BTL IJ (14:07)
[2025-02-01] MEDS: Nerve Block Tray 1 EACH MC (14:07)
[2025-02-01] MEDS: Bupivacaine 0.5% Pres-Free 10 ML VIAL IJ (14:08)
== END 2025-02-01 13:19 | disposition home or self-care (01) ==
LOC: PC 13:18
PROVIDERS: PCP Nurse Practitioner Family; Visit Provider Preventive Medicine Occupational Medicine
DX: M54.50 Low back pain, unspecified (principal); M47.816 Spondylosis without myelopathy or radiculopathy, lumbar region
CPT/HCPCS: 64493; 64494; 72100; J0665; Q9967

== ENCOUNTER 2025-02-21 08:23 | Outpatient (CLI) | payer MEDICARE, SELFPAY ==
--- NOTE | 2025-02-21 06:00 | DI.RAD_ITS ---
Exam(s) XR PAIN CLINIC LUMBAR SP 2V EXAM: XR PAIN CLINIC LUMBAR SP 2V CLINICAL HISTORY: DX: Lumbar Spondylosis. TECHNIQUE: Fluoroscopy was provided for the referring physician for guidance with performing pain clinic injection procedure. COMPARISON: No exams were available for comparison FINDINGS: Please see procedure note for details. Fluoro time: 13.2 seconds RADIATION DOSE DELIVERED: rj Goldstein=8.5 mGy
[2025-02-21 08:40] VITALS: BP 159/81; PULSE 69; RESP 18; TEMP 37.1; O2SAT 96
--- NOTE | 2025-02-21 09:06 | PDOC.PAIN ---
Date of service: 02/21/25 Time of Service: 09:24 Pain Managment Procedure Note Procedure Note Procedure Note: LUMBAR MEDIAL BRANCH BLOCK #2 Location: Left Medial Branches ? Levels: L3,4,5? (L4-5, L5-S1 FACET) ? Pre-procedure Diagnosis: M47.817 Spondylosis without myelopathy or radiculopathy, lumbosacral region M47.816 Spondylosis without myelopathy or radiculopathy, lumbar region ? Post-procedure Diagnosis:? The same as above ? Sedation: NONE? Estimated blood loss:? less than 2 ml ? Surgeon:? Jamaal Li MD COMMENT: Patient had? GREATER THAN 80 % relief after the first medial branch block for greater than the duration of the local anesthetic.? PRE PROCEDURE PAIN SCORE: 7/10 ? Procedure Detail:? The procedure and potential risks were explained to the patient and informed written consent was obtained. The patient was escorted to the procedure room and placed in the prone position. Pillows were utilized for proper positioning and comfort.? Time out was performed in procedure room with nursing staff confirming the patient's identity, procedure to be performed, allergies, and any blood thinning or anti-platelet medications. The patient's lower back was prepped with chlorhexidine and draped in a sterile fashion. Sterile technique was maintained throughout the procedure.? Sterile gloves were used, a face mask was worn, and new single dose vials of all medications were used with the top being swabbed with alcohol and given time to dry prior to withdrawal of medication.? A left -sided oblique fluoroscopic view was obtained, with visualization of the: ? LEFT L3,4 and DORSAL RAMUS L5 AT SACRAL ALA ? junction of the transverse process and superior articular process. Lidocaine 1% was used to anesthetize the skin. A 22-gauge Quincke needle was advanced along the superior margin of the transverse process and lateral to the articular process.? It was directed inferiorly and medially so that the tip struck the junction of the base of the transverse process and the superior articular process. The needle was then walked over the superior aspect of the transverse process and advanced slightly along the course of the L3,4,5 medial branch nerves. Proper placement was verified in A/P, oblique and lateral views under fluoroscopy. At this location, following negative aspiration, 0.5ml 2% lidocaine was injected.? The patient tolerated the procedure well and was discharged home with instructions. Permanent images saved and recorded. Follow-up:?? Will plan to proceed with lumbar medial branch RFA if the patient gets good relief from today's procedure lasting for at least 2 hours. COMMENT:Pain went from 7/10 to 3/10. Before the patient left patient had 60% pain relief. Coding Conscious Sedation used for procedure: No CPT Codes: LMBB (includes Fluoro) Lumbar/Sacral, single lvl - 97023 ([id number] ~G) LMBB (includes Fluoro) Lumbar/Sacral, 2nd lvl - 22775 ([id number] ~G) LT - LEFT SIDE Additional Codes: Date of Service () Diagnoses: M47.817 Spondylosis without myelopathy or radiculopathy, lumbosacral region M47.816 Spondylosis without myelopathy or radiculopathy, lumbar region
[2025-02-21 09:09] VITALS: PULSE 77; O2SAT 96
[2025-02-21 09:10] VITALS: PULSE 70; O2SAT 95
[2025-02-21 09:20] VITALS: PULSE 66; O2SAT 86
[2025-02-21] MEDS: Lidocaine 2% Pres-Free 5 ML VIAL IJ (09:26)
[2025-02-21] MEDS: Nerve Block Tray 1 EACH MC (09:26)
== END 2025-02-21 08:24 | disposition home or self-care (01) ==
PROVIDERS: PCP Nurse Practitioner Family; Visit Provider Anesthesiology Pain Medicine
DX: M47.816 Spondylosis without myelopathy or radiculopathy, lumbar region (principal); M47.817 Spondylosis without myelopathy or radiculopathy, lumbosacral region
CPT/HCPCS: 64493; 64494; 72100